=== PATIENT | female | born 1985 | race African-American/Black ===

== ENCOUNTER 2016-07-25 15:39 | Inpatient (IN) | payer OTHER ==
[2016-07-25 15:55] VITALS: BMI 34.7
--- NOTE | 2016-07-25 15:58 | PDOC ---
History of Present Illness <Elba Turk - Last Filed: 07/25/16 15:58> - General History Source: Patient Exam Limitations: No Limitations - History of Present Illness Initial Comments: 07/25/16 16:36 The patient is a 31 year old female with a significant past medical history of IDDM, Charcot foot - osteomyelitis on the left foot, CKD (on dialysis M W F), HTN, and HCL, who presents to the ER with fever, vomiting, chills, and sweats today. Patient states she woke up today in her usual state of health. Patient states she saw her wound care doctor today for the left foot. She states she was unable to complete her dialysis today secondary to vomiting and fever. Patient says she felt slight chest pain to the right chest last night. On interview, patient is complaining of left foot pain. Denies cough, shortness of breath Denies headache, lightheadedness, dizziness Denies dysuria, hematuria Denies abdominal pain, diarrhea <Claritza Winkler - Last Filed: 07/25/16 16:40> <Kathy Mosley - Last Filed: 07/25/16 23:55> - General Chief Complaint: SIRS, Suspected/Possible Stated Complaint: FEVER Time Seen by Provider: 07/25/16 15:58 Past History - Past Medical History Anemia: Yes Asthma: No Cancer: No Cardiac Disorders: No CVA: No COPD: No CHF: No Dementia: No Diabetes: Yes GI Disorders: No Disorders: No HTN: Yes Hypercholesterolemia: Yes Liver Disease: No Seizures: No Thyroid Disease: No - Surgical History Abdominal Surgery: No Appendectomy: No Cardiac Surgery: No Cholecystectomy: No Lung Surgery: No Neurologic Surgery: No Orthopedic Surgery: Yes (left foot fracture - hardware) - Immunization History Immunization Up to Date: Yes - Psycho/Social/Smoking Cessation Hx Anxiety: No Suicidal Ideation: No Smoking History: Current every day smoker Have you smoked in the past 12 months: Yes Number of Cigarettes Smoked Daily: 10 If you are a former smoker, when did you quit?: two months ago Information on smoking cessation initiated: No 'Breaking Loose' booklet given: 08/24/15 Hx Alcohol Use: No Drug/Substance Use Hx: No Substance Use Type: None Hx Substance Use Treatment: No <Elba Turk - Last Filed: 07/25/16 15:58> <Claritza Winkler - Last Filed: 07/25/16 16:40> <Kathy Mosley - Last Filed: 07/25/16 23:55> - Past Medical History Allergies/Adverse Reactions: Allergies Allergy/AdvReac Type Severity Reaction Status Date / Time Pima And Derivatives Allergy Verified 07/25/16 15:55 sulfamethoxazole Allergy Verified 07/25/16 15:55 [From Bactrim] trimethoprim [From Bactrim] Allergy Verified 07/25/16 15:55 Home Medications: Ambulatory Orders Atorvastatin Ca [Lipitor] 20 mg PO HS tablet 12/14/14 Amlodipine Besylate 10 mg PO DAILY 04/05/15 Ferrous Sulfate [Feosol] 325 mg PO DAILY 04/05/15 Magnesium Oxide 400 mg PO DAILY 04/05/15 Omeprazole [Prilosec] 20 mg PO DAILY 04/05/15 Polyethylene Glycol 3350 [Gavilax] 17 gm PO PRN 04/05/15 Tamsulosin HCl 0.4 mg PO HS 04/05/15 Acetaminophen [Tylenol .Regular Strength -] 650 mg PO Q6H PRN #0 tablet Atenolol [Tenormin -] 100 mg PO DAILY #0 tablet 12/13/15 Insulin (Levemir) [Levemir Vial] 15 unit SQ HS #1 vial 12/13/15 Insulin Sliding Scale [Novolog Vial Sliding Scale -] See Protocol SQ AC #1 pen 12/13/15 Calcitriol [Calcitriol -] 0.25 mcg PO BID #60 capsule 04/15/16 Calcium 500Mg/Vit-D 200 Units [Os-Kaz 500+D -] 2 tab PO DAILY #60 tab 04/15/16 Calcium Acetate [Phoslo -] 1,334 mg PO TIDCM #90 capsule 04/15/16 Collagenase Clostridium Hist. [Santyl -] 1 applic TP DAILY #1 tube 04/15/16 Insulin (Levemir) [Levemir Vial] 5 units SQ HS ml 04/15/16 Review of Systems - Review of Systems Able to Perform ROS?: Yes Comments:: 07/25/16 16:36 GENERAL/CONSTITUTIONAL: (+) fever, chills, sweats. No weakness. HEAD, EYES, EARS, NOSE AND THROAT: No change in vision. No ear pain or discharge. No sore throat. CARDIOVASCULAR: No chest pain or shortness of breath. RESPIRATORY: No cough, wheezing, or hemoptysis. GASTROINTESTINAL: (+) nausea, vomiting. No diarrhea or constipation. GENITOURINARY: No dysuria, frequency, or change in urination. MUSCULOSKELETAL: (+) left foot pain. No joint or muscle swelling or pain. No neck or back pain. SKIN: No rash NEUROLOGIC: No headache, vertigo, loss of consciousness, or change in strength/ sensation. ENDOCRINE: No increased thirst. No abnormal weight change. HEMATOLOGIC/LYMPHATIC: No anemia, easy bleeding, or history of blood clots. ALLERGIC/IMMUNOLOGIC: No hives or skin allergy. <Claritza Winkler - Last Filed: 07/25/16 16:40> *Physical Exam - Vital Signs Last Vital Signs Temp Pulse Resp BP Pulse Ox 102.1 F H 117 H 24 180/94 95 07/25/16 15:40 07/25/16 15:40 07/25/16 15:40 07/25/16 15:40 07/25/16 15:40 <Elba Turk - Last Filed: 07/25/16 15:58> - Vital Signs Last Vital Signs Temp Pulse Resp BP Pulse Ox 102.1 F H 117 H 24 180/94 95 07/25/16 15:40 07/25/16 15:40 07/25/16 15:40 07/25/16 15:40 07/25/16 15:40 - Physical Exam Comments: 07/25/16 16:37 GENERAL: Rigors. Awake, alert, and fully oriented, in no acute distress HEAD: No signs of trauma ENT: Auricles normal inspection, hearing grossly normal, nares patent, oropharynx clear without exudates. Moist mucosa NECK: Normal ROM, supple, no lymphadenopathy, JVD, or masses LUNGS: Breath sounds equal, clear to auscultation bilaterally. No wheezes, and no crackles HEART: Tachy. Regular rhythm, normal S1 and S2, no murmurs, rubs or gallops ABDOMEN: Soft, nontender, normoactive bowel sounds. No guarding, no rebound. No masses EXTREMITIES: Normal range of motion, no edema. No clubbing or cyanosis. No cords, erythema, or tenderness NEUROLOGICAL: Cranial nerves II through XII grossly intact. Normal speech, normal gait SKIN: Scar in the back. Right chest shiley. Warm, Dry, normal turgor. <PetersonJuana - Last Filed: 07/25/16 16:40> - Vital Signs Last Vital Signs Temp Pulse Resp BP Pulse Ox 102.1 F H 117 H 24 180/94 95 07/25/16 15:40 07/25/16 15:40 07/25/16 15:40 07/25/16 15:40 07/25/16 15:40 <MosleyKathy - Last Filed: 07/25/16 23:55> ED Treatment Course - LABORATORY CBC & Chemistry Diagram: 07/25/16 16:38 07/25/16 21:15 - ADDITIONAL ORDERS Additional order review: Laboratory Results 07/25/16 07/25/16 07/25/16 21:15 16:38 16:38 Sodium 130 L Cancelled Potassium 3.4 L Cancelled Chloride 94 L Cancelled Carbon Dioxide 24 Cancelled Anion Gap 12 Cancelled BUN 18 Cancelled Creatinine 5.0 H Cancelled Creat Clearance w eGFR 10.16 Cancelled Random Glucose 306 H* D Cancelled Lactic Acid 1.2 Calcium 8.0 L Cancelled Total Bilirubin 0.3 D Cancelled AST 15 Cancelled ALT 12 Cancelled Alkaline Phosphatase 109 Cancelled Creatine Kinase 229 H D Troponin I 0.06 H Total Protein 6.0 L Cancelled Albumin 1.8 L D Cancelled Lipase 70 L 07/25/16 16:38 RBC 3.12 L MCV 92.0 MCHC 32.7 RDW 16.0 H MPV 8.7 Neutrophils % 88.6 H D Lymphocytes % 5.0 L D Monocytes % 4.3 Eosinophils % 1.5 Basophils % 0.6 - Medications Given in the ED: ED Medications Discontinued Medications Generic Name Dose Route Start Last Admin Trade Name Freq PRN Reason Stop Dose Admin Acetaminophen 1,000 mg 07/25/16 16:24 07/25/16 16:25 Tylenol - PO 07/25/16 16:25 Not Given ONCE ONE Acetaminophen 1,000 mg 07/25/16 18:31 07/25/16 17:20 Ofirmev Injection - IVPB 07/25/16 18:32 1,000 mg ONCE ONE Administration Vancomycin HCl 1,250 mg/ 250 mls @ 250 mls/hr 07/25/16 16:24 07/25/16 18:25 Dextrose IVPB 07/25/16 17:23 250 mls/hr ONCE ONE Administration Protocol Morphine Sulfate 4 mg 07/25/16 19:27 07/25/16 18:50 Morphine Injection - IVPUSH 07/25/16 19:28 4 mg ONCE ONE Administration Ondansetron HCl 4 mg 07/25/16 17:35 07/25/16 17:20 Zofran Injection IVPUSH 07/25/16 17:36 4 mg ONCE ONE Administration <Kathy Mosley - Last Filed: 07/25/16 23:55> Medical Decision Making - Medical Decision Making 07/25/16 23:53 Pt comes with fever, infection of diabetic foot/ankle, which we are unable to see, as her PMD just debrided the wound, and placed her in an Ayana boot/cast today. We did not remove the cast. Pt is ESRD on HD M, W, F she received an abridged dialysis session, cut short because of her fever and illness. Pt will be admitted to the hospitalsit for treatment of the infection and further evaluation. <Kathy Mosley - Last Filed: 07/25/16 23:55> *DC/Admit/Observation/Transfer <lEba Turk - Last Filed: 07/25/16 15:58> - Attestations Scribe Attestion: 07/25/16 16:39 Documentation prepared by Claritza Winkler, acting as medical review coordinator for Elba Turk MD. <Claritza Winkler - Last Filed: 07/25/16 16:40> - Discharge Dispostion Admit: Yes <Kathy Mosley - Last Filed: 07/25/16 23:55> Diagnosis at time of Disposition: ESRD (end stage renal disease), HTN (hypertension), Diabetic foot infection, Insulin dependent diabetes mellitus - Referrals Referrals: Ruby Cruz [Primary Care Provider] -
[2016-07-25] MEDS ORDERED: PIPERACILLIN/TAZOB 2.25 GM 2.25 GM in DEXTROSE 5%-WATER - 50 ML IVPB ONE (16:24)
[2016-07-25] MEDS ORDERED: VANCOMYCIN 1,250 MG in DEXTROSE 5%-WATER - 250 ML IVPB ONE (16:24)
[2016-07-25] MEDS ORDERED: ACETAMINOPHEN 500 MG TABLET (FP) PO ONE (16:24)
[2016-07-25 17:07] LABS: BASOPHIL 0.6 % (0-2.0); EOSINOPHIL 1.5 % (0-4.5); MCH 30.1 pg (25.7-33.7); MCHC 32.7 g/dl (32.0-36.0); MEAN PLT VOLUME 8.7 fl (7.5-11.1); NEUTROPHILS 88.6 % (42.8-82.8); PLATELET COUNT 308 K/MM3 (134-434); WHITE BLOOD COUNT 13.6 K/mm3 (4.0-10.0)
[2016-07-25] MEDS ORDERED: VANCOMYCIN 1 GRAM (PRE-DOCKED) 250 ML IVPB ONE (17:16)
[2016-07-25] MEDS ORDERED: ONDANSETRON 4 MG/2 ML VIAL ONE (17:16)
[2016-07-25] MEDS ORDERED: ACETAMINOPHEN INJECTION 100 ML IVPB ONE (17:16)
[2016-07-25] MEDS ORDERED: ONDANSETRON 4 MG/2 ML VIAL IVPUSH ONE (17:35)
[2016-07-25] MEDS ORDERED: ACETAMINOPHEN 1000 MG/100 ML VIAL (NON FORMULARY) IVPB ONE (18:31)
[2016-07-25] MEDS ORDERED: morphine CARPU-JECT 4 MG/1 ML DISP.SYRIN ONE (18:48)
[2016-07-25] MEDS ORDERED: morphine CARPU-JECT 4 MG/1 ML DISP.SYRIN IVPUSH ONE (19:27)
[2016-07-25 22:03] LABS: ALBUMIN 1.8 g/dl (3.4-5.0); ANION GAP 12 (8-16); BILIRUBIN,TOTAL 0.3 mg/dL (0.2-1.0); CO2 24 mmol/L (21-32); SGOT/AST 15 U/L (15-37); SGPT/ALT 12 U/L (12-78)
[2016-07-25 22:05] LABS: ALK PHOS 109 U/L (45-117); TROPONIN I 0.06 ng/ml (0.00-0.05)
[2016-07-25 22:10] LABS: GLUCOSE,RANDOM 306 mg/dL (74-106)
[2016-07-25] MEDS ORDERED: IBUPROFEN 600 MG TABLET (FP) PO ONE ×2 (22:23→22:24)
[2016-07-25] MEDS ORDERED: PIPERACILLIN/TAZOB 3.375 GM/50 ML PRE-DOCKED IVPB ONE (23:45)
--- NOTE | 2016-07-25 23:45 | HP ---
CHIEF COMPLAINT: chills, nausea, vomiting PCP: Dr. Cruz; Nephro: Dr. Moeller HISTORY OF PRESENT ILLNESS: 31 y/o F w/PMH of IDDM, charcot foot, osteomyelitis on L foot, ESRD (dialysis MWF), HTN, HLD, GERD presents to ER w/ c/o of chills, nausea, vomiting and sent from [facility] dialysis after an incomplete dialysis session due to vomiting and fever. This morning pt was in her usual state of health and went to see wound care doctor and after leaving pt felt "deep chills". She then went to dialysis at approximately 1-130pm where she threw up twice (consisting of food and no blood), and had a fever but does not remember temp. She was sent from dialysis to [facility]. She states she has had MRSA bacteremia multiple times in the past. She denies CP, SOB, cough, sputum, PATINO, light-headedness, dizziness, abd pain out of the ordinary, diarrhea, blood in stool, dysuria, frequency, blood in urine, drainage from site of shiley catheter, runny nose, throat pain, throat swelling , visual changes, sick contacts. She states her L foot cast was replaced last Thursday and it was noted that she had good healing in the area. ER course was notable for: (1) CXR, L foot XR, Vanco, Zosyn, ofirmev (2) (3) PAST MEDICAL HISTORY: IDDM, charcot foot, osteomyelitis on L foot, ESRD ( dialysis MWF), HTN, HLD, GERD PAST SURGICAL HISTORY: R chest wall shiley catheter Social History: Smokin/2 ppd Alcohol: denies Drugs: marijuana Allergies Edmunds And Derivatives Allergy (Verified 07/25/16 15:55) - SCRATCHY THROAT sulfamethoxazole [From Bactrim] Allergy (Verified 07/25/16 15:55) - HIVES trimethoprim [From Bactrim] Allergy (Verified 07/25/16 15:55) - HIVES HOME MEDICATIONS: Home Medications Medication Instructions Recorded Atorvastatin Ca [Lipitor] 20 mg PO HS tablet 12/14/14 Amlodipine Besylate 10 mg PO DAILY 04/05/15 Ferrous Sulfate [Feosol] 325 mg PO DAILY 04/05/15 Magnesium Oxide 400 mg PO DAILY 04/05/15 Omeprazole [Prilosec] 20 mg PO DAILY 04/05/15 Polyethylene Glycol 3350 [Gavilax] 17 gm PO PRN 04/05/15 Tamsulosin HCl 0.4 mg PO HS 04/05/15 Acetaminophen [Tylenol .Regular 650 mg PO Q6H PRN #0 tablet 12/13/15 Strength -] Atenolol [Tenormin -] 100 mg PO DAILY #0 tablet 12/13/15 Insulin (Levemir) [Levemir Vial] 15 unit SQ HS #1 vial 12/13/15 Insulin Sliding Scale [Novolog See Protocol SQ AC #1 pen 12/13/15 Vial Sliding Scale -] Calcitriol [Calcitriol -] 0.25 mcg PO BID #60 capsule 04/15/16 Calcium 500Mg/Vit-D 200 Units 2 tab PO DAILY #60 tab 04/15/16 [Os-Kaz 500+D -] Calcium Acetate [Phoslo -] 1,334 mg PO TIDCM #90 capsule 04/15/16 Collagenase Clostridium Hist. 1 applic TP DAILY #1 tube 04/15/16 [Santyl -] Insulin (Levemir) [Levemir Vial] 5 units SQ HS ml 04/15/16 REVIEW OF SYSTEMS CONSTITUTIONAL: +fever, chills, diaphoresis Absent: malaise, loss of appetite, weight change HEENT: Absent: rhinorrhea, nasal congestion, throat pain, throat swelling, visual changes CARDIOVASCULAR: Absent: chest pain, syncope, palpitations, lightheadedness RESPIRATORY: Absent: cough, shortness of breath GASTROINTESTINAL: +nausea, vomiting Absent: abdominal pain, diarrhea, hematochezia GENITOURINARY: Absent: dysuria, frequency, hematuria NEUROLOGIC: Absent: headache, mental status changes, bladder or bowel incontinence PSYCHIATRIC: Absent: anxiety, depression PHYSICAL EXAMINATION Vital Signs - 24 hr 07/25/16 07/25/16 07/25/16 15:40 15:50 18:30 Temperature 102.1 F H 101.6 F H Pulse Rate 117 H Pulse Rate [ 103 H Right] Respiratory 24 20 Rate Blood Pressure 180/94 Blood Pressure 169/72 [Right Arm] O2 Sat by Pulse 95 95 95 Oximetry (%) 07/25/16 07/25/16 21:00 23:21 Temperature 101.5 F H 101.0 F H Pulse Rate Pulse Rate [ 96 H 96 H Right] Respiratory 18 18 Rate Blood Pressure Blood Pressure 189/69 174/74 [Right Arm] O2 Sat by Pulse 100 96 Oximetry (%) GENERAL: Awake, alert, and fully oriented, in no acute distress. HEAD: Normal with no signs of trauma. EYES: extraocular movements intact, sclera anicteric, conjunctiva clear. EARS, NOSE, THROAT: Ears normal, nares patent. Moist mucous membranes. NECK: Normal range of motion, supple LUNGS: b/l crackles (few) HEART: Tachycardic, normal S1 and S2 without murmur, rub or gallop. R chest wall shiley in place - c/d/i ABDOMEN: Tender diffusely but pt states this is normal for her. Soft, not distended, normoactive bowel sounds, no guarding, no rebound, no masses. No hepatomegaly or splenomegaly. LOWER EXTREMITIES: L foot in hard cast. warm, well-perfused. No calf tenderness. NEUROLOGICAL: Normal speech. Gait not observed. PSYCHIATRIC: Cooperative. Good eye contact. Appropriate mood and affect. SKIN: Warm, clammy Laboratory Results - last 24 hr 07/25/16 07/25/16 07/25/16 16:38 16:38 16:38 WBC 13.6 H D RBC 3.12 L Hgb 9.4 L Hct 28.7 L MCV 92.0 MCHC 32.7 RDW 16.0 H Plt Count 308 D MPV 8.7 Neutrophils % 88.6 H D Lymphocytes % 5.0 L D Monocytes % 4.3 Eosinophils % 1.5 Basophils % 0.6 Sodium Cancelled Potassium Cancelled Chloride Cancelled Carbon Dioxide Cancelled Anion Gap Cancelled BUN Cancelled Creatinine Cancelled Creat Clearance w eGFR Cancelled Random Glucose Cancelled Lactic Acid 1.2 Calcium Cancelled Total Bilirubin Cancelled AST Cancelled ALT Cancelled Alkaline Phosphatase Cancelled Creatine Kinase CK-MB (CK-2) Troponin I Total Protein Cancelled Albumin Cancelled Lipase 07/25/16 21:15 WBC RBC Hgb Hct MCV MCHC RDW Plt Count MPV Neutrophils % Lymphocytes % Monocytes % Eosinophils % Basophils % Sodium 130 L Potassium 3.4 L Chloride 94 L Carbon Dioxide 24 Anion Gap 12 BUN 18 Creatinine 5.0 H Creat Clearance w eGFR 10.16 Random Glucose 306 H* D Lactic Acid Calcium 8.0 L Total Bilirubin 0.3 D AST 15 ALT 12 Alkaline Phosphatase 109 Creatine Kinase 229 H D CK-MB (CK-2) < 1.000 Troponin I 0.06 H Total Protein 6.0 L Albumin 1.8 L D Lipase 70 L Imaging: CXR: Cardiomegaly, no acute pathology Foot XR: awaiting official read Active Medications Acetaminophen (Tylenol -) 650 mg PO Q6H PRN PRN Reason: FEVER Amlodipine Besylate (Norvasc -) 10 mg PO DAILY RUBINA Atenolol (Tenormin -) 100 mg PO DAILY RUBINA Atorvastatin Calcium (Lipitor -) 20 mg PO HS [facility] Heparin Sodium (Porcine) (Heparin -) 5,000 unit SQ BID RUBINA Sodium Chloride (Normal Saline -) 1,000 mls @ 100 mls/hr IV ASDIR RUBINA Pantoprazole Sodium 40 mg/ (Sodium Chloride) 100 mls @ 200 mls/hr IVPB DAILY RUBINA Insulin Aspart (Novolog Vial Sliding Scale -) 1 vial SQ ACHS RUBINA PRN Reason: Protocol Non-Formulary Medication (Ferrous Sulfate [Feosol]) 325 mg PO DAILY RUBINA Piperacillin Sod/Tazobactam Sod (Zosyn 3.375gm Ivpb (Pre-Docked)) 3.375 gm IVPB BID RUBINA PRN Reason: Protocol Tamsulosin HCl (Flomax -) 0.4 mg PO HS RUBINA ASSESSMENT/PLAN: 31 y/o F w/PMH of IDDM, charcot foot, osteomyelitis on L foot, ESRD (dialysis MWF), HTN, HLD, GERD presents to ER w/ c/o of chills, nausea, vomiting and sent from [facility] dialysis after an incomplete dialysis session due to vomiting and fever. Admitted for sepsis. -Sepsis secondary to Shiley Cath vs UTI vs Osteomyelitis -SIRS 4/4+ -NS @ 100 ml/hr; c/w Vanco and Zosyn; pt w/hx of MRSA; ID consulted -Tylenol for fevers -f/u UA, UCx, BCx, foot XR -Elevated Trops -likely secondary to demand ischemia and decreased clearance due to ESRD -trend -ESRD -had incomplete session of dialysis today -Nephro consulted -monitor Cr -Avoid nephrotoxins -HTN -c/w amlodipine 10 mg po qd, atenolol 50 mg po qd (max daily dose is 50 mg with Cr Cl of 10 or less) -IDDM -BGMs, ISS ACHS -HLD -c/w atorvastatin 20 mg po qhs -GERD -protonix 40 mg iv qd -Anemia of chronic disease -renal cause in nature -c/w ferrous sulfate 325 mg po qd -DVT ppx -Heparin 5000 units bid -FEN -NS @ 100 ml/hr -monitor lytes, dialysis pt -Renal/Diabetic diet -Dispo -Admit to m/s Visit type - Emergency Visit Emergency Visit: Yes Care time: The patient presented to the Emergency Department on the above date and was hospitalized for further evaluation of their emergent condition. - New Patient This patient is new to me today: Yes Date on this admission: 07/26/16 - Critical Care Critical Care patient: No
[2016-07-25] MEDS ORDERED: PIPERACILLIN/TAZOB 3.375 GM/50 ML PRE-DOCKED IVPB SCH (23:59)
[2016-07-26] MEDS: SODIUM CHLORIDE 1,000 ML IV SCH (00:43)
[2016-07-26] MEDS ORDERED: PREGABALIN 25 MG CAPSULE PO PRN (01:00)
--- NOTE | 2016-07-26 04:32 | PN ---
<Kalin Ariza - Last Filed: 07/26/16 04:49> Teaching Attending Note ATTENDING PHYSICIAN STATEMENT I saw and evaluated the patient. I reviewed the resident's note and discussed the case with the resident. I agree with the resident's findings and plan as documented. SUBJECTIVE: The patient is a 31 year old female who presented to the ER with fever, vomiting , chills, and sweats today. Patient reported she woke up today in her usual state of health. Patient stated she saw her wound care doctor this morning for the left foot and began to have chills shortly after her appointment. At 1:30 she was unable to complete her dialysis today secondary to vomiting and subjective fever. Patient endorsed slight sharp chest pain to the right chest last night that . On interview, patient is complained of left foot pain. Denies cough, shortness of breath Denies headache, lightheadedness, dizziness Denies dysuria, hematuria Denies abdominal pain, diarrhea PAST MEDICAL HISTORY: DDM, Charcot foot, CKD (on dialysis M W F), HTN, HCL, retinopathy , COPD, bacteremia PAST SURGICAL HISTORY: Osteomyelitis on the left foot FAMILY HISTORY: No pertinent history reported SOCIAL HISTORY: Current 0.5 ppd smoker, denied alcohol and recreational drug use. ALLERGIES: Juab, sulfamethoxazole, trimethoprim MEDICATIONS: As per nursing note. OBJECTIVE: Last Vital Signs 3 Temp Pulse Resp BP Pulse Ox 101.0 F H 96 H 18 174/74 96 07/25/16 23:21 07/25/16 23:21 07/25/16 23:21 07/25/16 23:21 07/25/16 23:21 Physical Examination: GENERAL: Awake, alert, and fully oriented, in no acute distress HEENT: Atraumatic. PERRLA, EOMI. Moist mucosa. No JVD LUNGS: (+) No distress, speaks full sentences, clear to auscultation bilaterally. Minor crackles bilaterally. HEART: (+) Tachycardic, regular rhythm, normal S1 and S2, no murmurs, rubs or gallops, peripheral pulses normal and equal bilaterally. ABDOMEN: Soft, nontender, normoactive bowel sounds. No guarding, no rebound. No masses EXTREMITIES: (+) Normal inspection, Normal range of motion, no edema. No clubbing or cyanosis. Left foot is with cast. NEUROLOGICAL: Cranial nerves II through XII grossly intact. Normal speech, normal gait, no focal sensorimotor deficits SKIN: Warm, Dry, normal turgor, no rashes or lesions noted. Labs: CBCD 3 WBC 13.6 K/mm3 (4.0-10.0) H D 07/25/16 16:38 RBC 3.12 M/mm3 (3.60-5.2) L 07/25/16 16:38 Hgb 9.4 GM/dL (10.7-15.3) L 07/25/16 16:38 Hct 28.7 % (32.4-45.2) L 07/25/16 16:38 MCV 92.0 fl (80-96) 07/25/16 16:38 MCHC 32.7 g/dl (32.0-36.0) 07/25/16 16:38 RDW 16.0 % (11.6-15.6) H 07/25/16 16:38 Plt Count 308 K/MM3 (134-434) D 07/25/16 16:38 MPV 8.7 fl (7.5-11.1) 07/25/16 16:38 CMP 3 Sodium 130 mmol/L (136-145) L 07/25/16 21:15 Potassium 3.4 mmol/L (3.5-5.1) L 07/25/16 21:15 Chloride 94 mmol/L (98-107) L 07/25/16 21:15 Carbon Dioxide 24 mmol/L (21-32) 07/25/16 21:15 Anion Gap 12 (8-16) 07/25/16 21:15 BUN 18 mg/dL (7-18) 07/25/16 21:15 Creatinine 5.0 mg/dL (0.55-1.02) H 07/25/16 21:15 Creat Clearance w eGFR 10.16 (>60) 07/25/16 21:15 Calcium 8.0 mg/dL (8.5-10.1) L 07/25/16 21:15 Total Bilirubin 0.3 mg/dL (0.2-1.0) D 07/25/16 21:15 AST 15 U/L (15-37) 07/25/16 21:15 ALT 12 U/L (12-78) 07/25/16 21:15 Alkaline Phosphatase 109 U/L (45-117) 07/25/16 21:15 Total Protein 6.0 g/dl (6.4-8.2) L 07/25/16 21:15 Albumin 1.8 g/dl (3.4-5.0) L D 07/25/16 21:15 Imaging: EXAM: RAD/CHEST X-RAY PORTABLE* HISTORY PROVIDED: Fever. A single frontal portable projection of the chest at 9: 55 PM is submitted. The heart size is markedly enlarged. A right-sided permacath is present. No acute infiltrates or pleural effusions are identified. IMPRESSION: Cardiomegaly, no acute pathology Reported By: Armando Blackman MD 07/25/16 [id number] EXAM: FOOT X-RAY. IMPRESSION: Official report is still pending. ASSESSMENT AND PLAN : Sepsis secondary to sepsis etiology undetermined ruling out Shiley catheter versus Osteomyelitis versus Urinary tract infection - Trend LA - NS 100 cc/hr - Vancomycin and Zosyn - ID consult - Tylenol prn fever - Follow up blood cultures - Follow up urine cultures - Follow up foot x-ray ESRD - s/p incomplete dialysis session today. In ED found to have elevated troponin levels - Trend troponins. - Monitor creatinine - Avoid nephrotoxins - Consult nephrology Insulin Dependent Diabetes Mellitus - Blood glucose monitoring ACHS - Insulin sliding scale ACHS HTN - Continue Amlodipine 10 mg PO QD - Continue with Atenolol 100 mg PO QD HLD - Continue with Atorvastatin 20 mg PO QHS GERD - Protonix 40 mg IV QD Chronic Anemia - secondary to CKD - Continue with Ferrous Sulfate 325 mg PO QD DVT PPX - Heparin 5000 units BID Admit to med surg. Documentation prepared by Kalin Ariza, acting as biomedical engineering professor for Dr. Drea Ba MD. <Drea aB - Last Filed: 07/26/16 07:13> Teaching Attending Note Name of Resident: Jeff Salazar Correct Addendum- Atenolol 50mg not 100mg
[2016-07-26 06:47] LABS: BASOPHIL 0.7 % (0-2.0); EOSINOPHIL 1.7 % (0-4.5); MCH 30.8 pg (25.7-33.7); MCHC 32.8 g/dl (32.0-36.0); MEAN CELL VOLUME 93.8 fl (80-96); MEAN PLT VOLUME 8.5 fl (7.5-11.1); PLATELET COUNT 250 K/MM3 (134-434); RDW 15.5 % (11.6-15.6); WHITE BLOOD COUNT 9.7 K/mm3 (4.0-10.0)
[2016-07-26 07:10] LABS: INR 1.29 (0.82-1.09); PROTHROMBIN TIME (PATIENT) 14.3 SEC (9.98-11.88)
[2016-07-26 07:13] LABS: ALBUMIN 1.6 g/dl (3.4-5.0); ANION GAP 10 (8-16); BILIRUBIN,TOTAL 0.2 mg/dL (0.2-1.0); CALCIUM 7.6 mg/dL (8.5-10.1); CO2 27 mmol/L (21-32); CREATININE 5.7 mg/dL (0.55-1.02); GLUCOSE,RANDOM 293 mg/dL (74-106); SGOT/AST 13 U/L (15-37); SGPT/ALT 11 U/L (12-78); TOT PROT 5.3 g/dl (6.4-8.2)
[2016-07-26 07:14] LABS: ALK PHOS 102 U/L (45-117)
[2016-07-26] MEDS ORDERED: PIPERACILLIN/TAZOB 3.375 GM/50 ML PRE-DOCKED IVPB ONE (08:00)
[2016-07-26] MEDS: INSULIN SLIDING SCALE (NOVOLOG) 1 VIAL SQ SCH ×4 (08:09→22:55)
[2016-07-26 08:32] LABS: MAGNESIUM 1.9 mg/dL (1.8-2.4)
[2016-07-26 08:40] LABS: PHOSPHOROUS 4.1 mg/dL (2.5-4.9); TROPONIN I 0.03 ng/ml (0.00-0.05)
[2016-07-26] MEDS ORDERED: ATENOLOL 50 MG TABLET (FP) PO SCH (10:00)
[2016-07-26] MEDS ORDERED: PANTOPRAZOLE SODIUM 40 MG in SODIUM CHLORIDE 100 ML IVPB SCH (10:00)
[2016-07-26] MEDS ORDERED: FERROUS SO4 325 MG TABLET (FP) ONE (10:22)
[2016-07-26] MEDS ORDERED: amLODIPine BESYLATE 5 MG TABLET (FP) ONE (10:22)
[2016-07-26] MEDS ORDERED: ATENOLOL 25 MG TABLET (FP) ONE (10:22)
[2016-07-26] MEDS ORDERED: HEPARIN NA (PORCINE) 5,000 UNITS/ML 1ML VIAL ONE ×2 (10:22→21:54)
[2016-07-26] MEDS ORDERED: PANTOPRAZOLE SODIUM 40 MG VIAL ONE (10:23)
[2016-07-26] MEDS: FERROUS SO4 325 MG TABLET (FP) PO SCH (10:57)
[2016-07-26] MEDS: amLODIPine BESYLATE 10 MG TABLET (FP) PO SCH (10:57)
[2016-07-26] MEDS: HEPARIN NA (PORCINE) 5,000 UNITS/ML 1ML VIAL SQ SCH ×2 (10:57→22:55)
[2016-07-26] MEDS: ATENOLOL 50 MG TABLET (FP) PO SCH (10:57)
[2016-07-26] MEDS: PANTOPRAZOLE SODIUM 40 MG/100 ML PRE-DOCKED IVPB SCH (10:57)
[2016-07-26 11:05] LABS: URINE APPEARANCE CLEAR; URINE BILIRUBIN NEGATIVE (NEGATIVE); URINE BLOOD NEGATIVE (NEGATIVE); URINE COLOR LTYELLOW; URINE GLUCOSE (UA) 3+ (NEGATIVE); URINE KETONE TRACE (NEGATIVE); URINE LEUK ESTERASE NEGATIVE (NEGATIVE); URINE NITRITE NEGATIVE (NEGATIVE); URINE UROBILINOGEN NEGATIVE E.U./dl (0.2-1.0)
[2016-07-26 11:13] LABS: URINE PROTEIN 3+ (NEGATIVE)
[2016-07-26 11:15] LABS: URINE BACTERIA RARE /hpf (NONE SEEN); URINE HYALINE CAST 7 /lpf; URINE MUCUS RARE; URINE RBC 1 /hpf (0-3); URINE WBC 5 /hpf (3-5)
--- NOTE | 2016-07-26 12:06 | CON.NEP ---
Consult Consult Specialty:: Nephrology Reason for Consultation:: esrd/sepsis - History of Present Illness Chief Complaint: foot pain History of Present Illness: 31 y/o F w/PMH of IDDM, charcot foot, osteomyelitis on L foot, ESRD (dialysis MWF), HTN, HLD, GERD presents to ER w/ c/o of chills, nausea, vomiting and sent from [facility] after an incomplete dialysis session due to vomiting and fever. I had her sent to hospital from [facility] dialysis center. She feels better today but is still complaining of pain in her foot and knee. 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: Peripheral Neuropathy Cardio/Vascular: Yes: HTN, Hyperlipdemia Pulmonary: Yes: COPD Renal/: Yes: Renal Inusuff ...LMP: 10/15/15 Infectious Disease: Yes: Other (bacteremia, removal hardware LLE 11/2014) Musculoskeletal: Yes: Other (+ Charcot Arthropathy Left foot) Endocrine: Yes: Diabetes Mellitus Additional Medical History: diabetic neuropathy - Alcohol/Substance Use Hx Alcohol Use: No History of Substance Use: reports: Marijuana - Smoking History Smoking history: Current every day smoker Have you smoked in the past 12 months: Yes Aproximately how many cigarettes per day: 10 If you are a former smoker, when did you quit?: two months ago - Social History Usual Living Arrangement: Other (has a roommate) ADL: Support Services 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 History of Recent Travel: No Home Medications - Allergies Allergies/Adverse Reactions: Allergies Allergy/AdvReac Type Severity Reaction Status Date / Time [place] And Derivatives Allergy Verified 07/25/16 15:55 sulfamethoxazole Allergy Verified 07/25/16 15:55 [From Bactrim] trimethoprim [From Bactrim] Allergy Verified 07/25/16 15:55 - Home Medications Home Medications: Ambulatory Orders Atorvastatin Ca [Lipitor] 20 mg PO HS tablet 12/14/14 Amlodipine Besylate 10 mg PO DAILY 04/05/15 Ferrous Sulfate [Feosol] 325 mg PO DAILY 04/05/15 Magnesium Oxide 400 mg PO DAILY 04/05/15 Omeprazole [Prilosec] 20 mg PO DAILY 04/05/15 Polyethylene Glycol 3350 [Gavilax] 17 gm PO PRN 04/05/15 Tamsulosin HCl 0.4 mg PO HS 04/05/15 Acetaminophen [Tylenol .Regular Strength -] 650 mg PO Q6H PRN #0 tablet Atenolol [Tenormin -] 100 mg PO DAILY #0 tablet 12/13/15 Insulin (Levemir) [Levemir Vial] 15 unit SQ HS #1 vial 12/13/15 Insulin Sliding Scale [Novolog Vial Sliding Scale -] See Protocol SQ AC #1 pen 12/13/15 Calcitriol [Calcitriol -] 0.25 mcg PO BID #60 capsule 04/15/16 Calcium 500Mg/Vit-D 200 Units [Os-Kaz 500+D -] 2 tab PO DAILY #60 tab 04/15/16 Calcium Acetate [Phoslo -] 1,334 mg PO TIDCM #90 capsule 04/15/16 Collagenase Clostridium Hist. [Santyl -] 1 applic TP DAILY #1 tube 04/15/16 Insulin (Levemir) [Levemir Vial] 5 units SQ HS ml 04/15/16 Family Disease History - Family Disease History Family Disease History: Diabetes: Mother, Sister, Son Review of Systems - Review of Systems Constitutional: reports: Chills, Fever Eyes: reports: Blurred Vision HENT: reports: No Symptoms Neck: reports: No Symptoms Cardiovascular: reports: Edema Respiratory: reports: No Symptoms Gastrointestinal: reports: No Symptoms Genitourinary: reports: No Symptoms Breasts: reports: No Symptoms Reported Musculoskeletal: reports: Extremity Pain Integumentary: reports: No Symptoms Neurological: reports: No Symptoms Endocrine: reports: No Symptoms Hematology/Lymphatic: reports: No Symptoms Psychiatric: reports: No Symptoms Nephrology Consult - Height Height: 5 ft 6 in - Weight Weight: 215 lb - BMI Body Mass Index (BMI): 34.7 - Lab Results CBC,BMP: CBC, BMP 07/26/16 06:00 07/26/16 06:25 Anion Gap: Anion Gap Anion Gap 10 (8-16) 07/26/16 06:25 - Imaging Chest X-ray: Report Reviewed (no acute pathology) - Physical Examination Vital Signs: Vital Signs Temperature 99.2 F 07/26/16 02:13 Pulse Rate 82 07/26/16 06:54 Respiratory Rate 20 07/26/16 06:54 Blood Pressure 174/86 07/26/16 06:54 O2 Sat by Pulse Oximetry (%) 96 07/26/16 06:54 Constitutional: Yes: Well Nourished, No Distress, Calm Eyes: Yes: Conjunctiva Clear HENT: Yes: Atraumatic, Normocephalic Neck: Yes: Supple, Trachea Midline Cardiovascular: Yes: Regular Rate and Rhythm Respiratory: Yes: Regular, CTA Bilaterally Gastrointestinal: Yes: Normal Bowel Sounds Renal/: Yes: WNL Access for Hemodialysis: Permacath Musculoskeletal: Yes: WNL Extremities: Yes: Other (+edema, has a leg cast soft) Edema: Yes Wound/Incision: Yes: Clean/Dry Neurological: Yes: Alert, Oriented Assessment/Plan IMPRESSION esrd htn anemia sepsis from foot infection. Doubt her PC is infected though its possible severe hypoalbuminemia PLAN no need to dialyze today needs a renal diet. antibiotics per ID dietitan to see regarding very low albumin will give epogen but no venofer during HD MV
[2016-07-26] MEDS ORDERED: morphine CARPU-JECT 2 MG/1 ML DISP.SYRIN ONE (16:03)
[2016-07-26] MEDS: morphine CARPU-JECT 2 MG/1 ML DISP.SYRIN IVPUSH PRN (16:08)
--- NOTE | 2016-07-26 16:53 | PN ---
Progress Note (short form) - Note Progress Note: Subjective: The patient was seen and examined at the bedside, she states her left foot cast was replaced yesterday by Dr. Crews ([phone]). Current Medications Generic Name Dose Route Start Last Admin Trade Name Freq PRN Reason Stop Dose Admin Acetaminophen 650 mg 07/25/16 23:23 Tylenol - PO Q6H PRN FEVER Amlodipine Besylate 10 mg 07/26/16 10:00 07/26/16 10:57 Norvasc - PO 10 mg DAILY RUBINA Administration Atenolol 50 mg 07/26/16 10:00 07/26/16 10:57 Tenormin - PO 50 mg DAILY RUBINA Administration Atorvastatin Calcium 20 mg 07/26/16 22:00 Lipitor - PO HS RUBINA Ferrous Sulfate 325 mg 07/26/16 10:00 07/26/16 10:57 Feosol - PO 325 mg DAILY RUBINA Administration Heparin Sodium (Porcine) 5,000 unit 07/26/16 10:00 07/26/16 10:57 Heparin - SQ 5,000 unit BID RUBINA Administration Sodium Chloride 1,000 mls @ 100 mls/hr 07/25/16 23:30 07/26/16 00:43 Normal Saline - IV 100 mls/hr ASDIR RUBINA Administration Insulin Aspart 1 vial 07/26/16 07:00 07/26/16 13:20 Novolog Vial Sliding Scale - SQ 6 units ACHS RUBINA Administration Protocol Morphine Sulfate 1 mg 07/26/16 15:38 Morphine Injection - IVPUSH Q4H PRN PAIN Pantoprazole Sodium 40 mg 07/26/16 10:00 07/26/16 10:57 Protonix 40mg Ivpb (Pre-Docked) IVPB 40 mg DAILY RUBINA Administration Tamsulosin HCl 0.4 mg 07/26/16 22:00 Flomax - PO HS RUBINA Objective: Vital Signs Period Temp Pulse Resp BP Sys/Guardado Pulse Ox Last 24 Hr 99.2 F-101.6 F 75-103 18-20 150-189/69-86 95-100 Physical Exam: General: NAD, A&Ox3 HEENT: B/l strabismus Lungs: CTA bilaterally. Right chest wall permacath Heart: RRR, S1S2 Abd: Soft, non-tender, non-distended. Normoactive bowel sounds Ext: Left foot cast to distal knee. Warm extremity CBCD WBC 9.7 K/mm3 (4.0-10.0) 07/26/16 06:00 RBC 2.65 M/mm3 (3.60-5.2) L 07/26/16 06:00 Hgb 8.2 GM/dL (10.7-15.3) L D 07/26/16 06:00 Hct 24.9 % (32.4-45.2) L 07/26/16 06:00 MCV 93.8 fl (80-96) 07/26/16 06:00 MCHC 32.8 g/dl (32.0-36.0) 07/26/16 06:00 RDW 15.5 % (11.6-15.6) 07/26/16 06:00 Plt Count 250 K/MM3 (134-434) 07/26/16 06:00 MPV 8.5 fl (7.5-11.1) 07/26/16 06:00 CMP Sodium 133 mmol/L (136-145) L 07/26/16 06:25 Potassium 3.5 mmol/L (3.5-5.1) 07/26/16 06:25 Chloride 96 mmol/L (98-107) L 07/26/16 06:25 Carbon Dioxide 27 mmol/L (21-32) 07/26/16 06:25 Anion Gap 10 (8-16) 07/26/16 06:25 BUN 21 mg/dL (7-18) H 07/26/16 06:25 Creatinine 5.7 mg/dL (0.55-1.02) H 07/26/16 06:25 Creat Clearance w eGFR 8.74 (>60) 07/26/16 06:25 Random Glucose 293 mg/dL (74-106) H 07/26/16 06:25 Calcium 7.6 mg/dL (8.5-10.1) L 07/26/16 06:25 Total Bilirubin 0.2 mg/dL (0.2-1.0) D 07/26/16 06:25 AST 13 U/L (15-37) L 07/26/16 06:25 ALT 11 U/L (12-78) L 07/26/16 06:25 Alkaline Phosphatase 102 U/L (45-117) 07/26/16 06:25 Total Protein 5.3 g/dl (6.4-8.2) L 07/26/16 06:25 Albumin 1.6 g/dl (3.4-5.0) L 07/26/16 06:25 CARDIAC ENZYMES Creatine Kinase 229 IU/L (26-192) H D 07/25/16 21:15 Troponin I 0.03 ng/ml (0.00-0.05) 07/26/16 06:25 Assessment: This is a 31 year old female with PMHx of IDDM, charcot foot, ESRD ( HD M,W,F), left foot osteomyelitis, b/l retinopathy HTN, hyperlipidemia, GERD, who presented to the ED with chills, nausea, vomiting and sent from [facility] dialysis for vomiting and fever. Plan: 1) ID: Sepsis 2/2 osteomyelitis vs. shiley catheter vs UTI - Lactic acid wnl - Blood cultures pending - UA, urine culture pending - Chest X-ray with cardiomegaly, no acute infiltrates or pleural effusions - Given Vancomycin and Zosyn, f/u ID consult for further abx recommendations - Attempt to call Dr. Crews ([phone])MD who placed cast on patient's foot yesterday - While left foot x-ray has marked deformity, cast has obscured the view. Patient reports open wound on left foot and left lr - F/u ortho consult for possible removal of cast to evaluate wound on foot as it can be source of sepsis - F/u ID consult 2) : ESRD on HD - Continue with scheduled HD - Appreciate nephrology consult 3) Cardiology: HTN - Continue Atenolol - Continue Norvasc Hyperlipidemia: - Continue Lipitor 4) GI: GERD - Continue Protonix 5) F/E/N: - Renal, diabetic diet - Monitor electrolytes 6) Prophylaxis: - Heparin 5,000u sq bid 7) Dispo: - Requires continued inpatient care CODE STATUS: FULL CODE Visit type - Emergency Visit Emergency Visit: Yes ED Registration Date: 07/25/16 Care time: The patient presented to the Emergency Department on the above date and was hospitalized for further evaluation of their emergent condition. - New Patient This patient is new to me today: Yes Date on this admission: 07/26/16 - Critical Care Critical Care patient: No
[2016-07-26] MEDS ORDERED: POLYETHYLENE GLYCOL 3350 119 GM BTL PO PRN (17:00)
[2016-07-26] MEDS: CALCIUM ACETATE 667 MG CAPSULE (FP) PO SCH (18:47)
[2016-07-26] MEDS ORDERED: TAMSULOSIN HCL 0.4 MG CAP.ER.24H (FP) ONE (21:54)
[2016-07-26] MEDS ORDERED: ATORVASTATIN CA 40 MG TABLET (FP) ONE (21:55)
[2016-07-26] MEDS ORDERED: INSULIN (NOVOLOG) ASPART 100 UNITS/ML 10ML VIAL ONE (22:23)
[2016-07-26] MEDS: ATORVASTATIN CA 20 MG TABLET (FP) PO SCH (22:55)
[2016-07-26] MEDS: TAMSULOSIN HCL 0.4 MG CAP.ER.24H (FP) PO SCH (22:55)
[2016-07-26] MEDS: CALCITRIOL 0.25 MCG CAPSULE (FP) PO SCH (22:56)
[2016-07-27] MEDS ORDERED: morphine CARPU-JECT 2 MG/1 ML DISP.SYRIN ONE (00:43)
[2016-07-27] MEDS: morphine CARPU-JECT 2 MG/1 ML DISP.SYRIN IVPUSH PRN ×4 (00:50→21:46)
[2016-07-27] MEDS: SODIUM CHLORIDE 1,000 ML IV SCH (01:23)
[2016-07-27] MEDS: INSULIN SLIDING SCALE (NOVOLOG) 1 VIAL SQ SCH ×4 (07:22→21:47)
[2016-07-27 08:24] LABS: BASOPHIL 1.1 % (0-2.0); EOSINOPHIL 6.2 % (0-4.5); MCHC 32.8 g/dl (32.0-36.0); MEAN CELL VOLUME 94.7 fl (80-96); MEAN PLT VOLUME 8.9 fl (7.5-11.1); NEUTROPHILS 58.9 % (42.8-82.8); PLATELET COUNT 209 K/MM3 (134-434); RDW 16.2 % (11.6-15.6); WHITE BLOOD COUNT 6.7 K/mm3 (4.0-10.0)
[2016-07-27] MEDS: CALCIUM ACETATE 667 MG CAPSULE (FP) PO SCH ×3 (08:29→17:37)
[2016-07-27 08:41] LABS: ALBUMIN 1.5 g/dl (3.4-5.0); ANION GAP 11 (8-16); CALCIUM 7.5 mg/dL (8.5-10.1); CO2 24 mmol/L (21-32); CREATININE 6.7 mg/dL (0.55-1.02); GLUCOSE,RANDOM 103 mg/dL (74-106); SGOT/AST 16 U/L (15-37); SGPT/ALT 12 U/L (12-78)
[2016-07-27 08:43] LABS: ALK PHOS 89 U/L (45-117); BILIRUBIN,TOTAL 0.2 mg/dL (0.2-1.0); TOT PROT 5.2 g/dl (6.4-8.2)
[2016-07-27] MEDS ORDERED: PIPERACILLIN/TAZOB 2.25 GM 50 ML IVPB ONE (09:15)
[2016-07-27] MEDS: HEPARIN NA (PORCINE) 5,000 UNITS/ML 1ML VIAL SQ SCH ×2 (09:36→21:47)
[2016-07-27] MEDS: CALCIUM 500MG/VIT-D 200 UNITS COMBO TABLET (FP) PO SCH (09:37)
[2016-07-27] MEDS: amLODIPine BESYLATE 10 MG TABLET (FP) PO SCH (09:37)
[2016-07-27] MEDS: CALCITRIOL 0.25 MCG CAPSULE (FP) PO SCH ×2 (09:37→21:47)
[2016-07-27] MEDS: ATENOLOL 50 MG TABLET (FP) PO SCH (09:37)
[2016-07-27] MEDS: FERROUS SO4 325 MG TABLET (FP) PO SCH (09:37)
[2016-07-27] MEDS ORDERED: PATIENT'S OWN MEDICATION (NON-FORMULARY) (Omeprazole Pediatric Solution 20 MG) PO SCH (10:00)
--- NOTE | 2016-07-27 10:49 | PN ---
Progress Note (short form) - Note Progress Note: RENAL Pt is awake and alert comfortable has no complaints Last Vital Signs Temp Pulse Resp BP Pulse Ox 97.9 F 76 18 147/99 97 07/27/16 08:56 07/27/16 08:56 07/27/16 08:56 07/27/16 08:56 07/26/16 21:00 lungs clear cvs s1s2 rr abd soft ext no edema neuro a+ox3 CBC, BMP 07/27/16 06:30 07/27/16 06:30 Current Medications Generic Name Dose Route Start Last Admin Trade Name Freq PRN Reason Stop Dose Admin Acetaminophen 650 mg 07/25/16 23:23 Tylenol - PO Q6H PRN FEVER Amlodipine Besylate 10 mg 07/26/16 10:00 07/27/16 09:37 Norvasc - PO 10 mg DAILY RUBINA Administration Atenolol 50 mg 07/26/16 10:00 07/27/16 09:37 Tenormin - PO 50 mg DAILY RUBINA Administration Atorvastatin Calcium 20 mg 07/26/16 22:00 07/26/16 22:55 Lipitor - PO 20 mg HS RUBINA Administration Calcitriol 0.25 mcg 07/26/16 22:00 07/27/16 09:37 Rocaltrol - PO 0.25 mcg BID RUBINA Administration Calcium Acetate 1,334 mg 07/26/16 17:30 07/27/16 08:29 Phoslo - PO 1,334 mg TIDCM RUBINA Administration Calcium Carbonate/Cholecalciferol 2 tab 07/27/16 10:00 07/27/16 09:37 Os-Kaz 500+D - PO 2 tab DAILY RUBINA Administration Collagenase 1 applic 07/27/16 10:00 Santyl - TP DAILY RUBINA Ferrous Sulfate 325 mg 07/26/16 10:00 07/27/16 09:37 Feosol - PO 325 mg DAILY RUBINA Administration Heparin Sodium (Porcine) 5,000 unit 07/26/16 10:00 07/27/16 09:36 Heparin - SQ 5,000 unit BID RUBINA Administration Sodium Chloride 1,000 mls @ 100 mls/hr 07/25/16 23:30 07/27/16 01:23 Normal Saline - IV 100 mls/hr ASDIR RUBINA Administration Insulin Aspart 1 vial 07/26/16 07:00 07/27/16 07:22 Novolog Vial Sliding Scale - SQ Not Given ACHS RUBINA Protocol Morphine Sulfate 1 mg 07/26/16 15:38 07/27/16 00:50 Morphine Injection - IVPUSH 1 mg Q4H PRN Administration PAIN Pantoprazole Sodium 40 mg 07/26/16 10:00 07/26/16 10:57 Protonix 40mg Ivpb (Pre-Docked) IVPB 40 mg DAILY RUBINA Administration Polyethylene Glycol 17 gm 07/26/16 17:00 Miralax (For Daily Use) - PO PRN PRN Tamsulosin HCl 0.4 mg 07/26/16 22:00 07/26/16 22:55 Flomax - PO 0.4 mg HS RUBINA Administration IMPRESSION sepsis- cultures are preliminarily negative esrd HTN anemia mild hyponatremia PLAN will dialyze again tomorrow continue antibiotics for now despite neg cultures given her presentation and obvious risk factors for infection no venofer given infection Podiatry consult MV
[2016-07-27] MEDS: PANTOPRAZOLE SODIUM 40 MG/100 ML PRE-DOCKED IVPB SCH (11:50)
[2016-07-27] MEDS: COLLAGENASE CLOSTRIDIUM HIST. 30 GRAMS TUBE TP SCH (11:50)
[2016-07-27] MEDS ORDERED: EPOETIN ALFA 10,000 UNIT/1 ML VIAL SQ ONE (12:00)
--- NOTE | 2016-07-27 12:00 | CONSULT ---
Consult Consult Specialty:: infectious diseases Reason for Consultation:: fever - History of Present Illness Chief Complaint: fever History of Present Illness: 31 y/o F w/PMH of IDDM, charcot foot, osteomyelitis on L foot, ESRD (dialysis MWF), HTN, HLD, GERD presents to ER w/ c/o of chills, nausea, vomiting and sent from [facility] dialysis after an incomplete dialysis session due to vomiting and fever. patient also starting feeling chills when she went to her wound care doctor.I know this patient from last admission she denies any other issues but is adamant that the foot is the cause she mentions that she has 2 open wounds on the foot but her foot is in hard cast so those cannot be evaluated ortho is going to come and see the patient and might remove the cast --we will ahve a look at the wounds that time patient has history of mrsa in the blood in the past and multiple mssa and mrsa infection from the wound her blood cx from this time is not showing any growth - History Source History Provided By: Patient Limitations to Obtaining History: No Limitations - 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 Cardio/Vascular: Yes: HTN, Hyperlipdemia Pulmonary: Yes: COPD Renal/: Yes: Renal Inusuff ...LMP: 10/15/15 Infectious Disease: Yes: Other (bacteremia, removal hardware LLE 11/2014) Musculoskeletal: Yes: Other (+ Charcot Arthropathy Left foot) Endocrine: Yes: Diabetes Mellitus Additional Medical History: diabetic neuropathy - Alcohol/Substance Use Hx Alcohol Use: No History of Substance Use: reports: Marijuana - Smoking History Smoking history: Current every day smoker Have you smoked in the past 12 months: Yes Aproximately how many cigarettes per day: 10 If you are a former smoker, when did you quit?: two months ago - Social History Usual Living Arrangement: Other (has a roommate) ADL: Support Services 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 of Recent Travel: No Home Medications - Allergies Allergies/Adverse Reactions: Allergies Allergy/AdvReac Type Severity Reaction Status Date / Time [place] And Derivatives Allergy Verified 07/25/16 15:55 sulfamethoxazole Allergy Verified 07/25/16 15:55 [From Bactrim] trimethoprim [From Bactrim] Allergy Verified 07/25/16 15:55 - Home Medications Home Medications: Ambulatory Orders Atorvastatin Ca [Lipitor] 20 mg PO HS tablet 12/14/14 Amlodipine Besylate 10 mg PO DAILY 04/05/15 Ferrous Sulfate [Feosol] 325 mg PO DAILY 04/05/15 Magnesium Oxide 400 mg PO DAILY 04/05/15 Omeprazole [Prilosec] 20 mg PO DAILY 04/05/15 Polyethylene Glycol 3350 [Gavilax] 17 gm PO PRN 04/05/15 Tamsulosin HCl 0.4 mg PO HS 04/05/15 Acetaminophen [Tylenol .Regular Strength -] 650 mg PO Q6H PRN #0 tablet Atenolol [Tenormin -] 100 mg PO DAILY #0 tablet 12/13/15 Insulin (Levemir) [Levemir Vial] 15 unit SQ HS #1 vial 12/13/15 Insulin Sliding Scale [Novolog Vial Sliding Scale -] See Protocol SQ AC #1 pen 12/13/15 Calcitriol [Calcitriol -] 0.25 mcg PO BID #60 capsule 04/15/16 Calcium 500Mg/Vit-D 200 Units [Os-Kaz 500+D -] 2 tab PO DAILY #60 tab 04/15/16 Calcium Acetate [Phoslo -] 1,334 mg PO TIDCM #90 capsule 04/15/16 Collagenase Clostridium Hist. [Santyl -] 1 applic TP DAILY #1 tube 04/15/16 Insulin (Levemir) [Levemir Vial] 5 units SQ HS ml 04/15/16 Family Disease History - Family Disease History Family Disease History: Diabetes: Mother, Sister, Son Review of Systems - Review of Systems Constitutional: reports: Chills, Fever Eyes: reports: No Symptoms HENT: reports: No Symptoms Neck: reports: No Symptoms Cardiovascular: reports: No Symptoms Respiratory: reports: No Symptoms Gastrointestinal: reports: No Symptoms Genitourinary: reports: No Symptoms Musculoskeletal: reports: Other Integumentary: reports: Other Neurological: reports: No Symptoms Endocrine: reports: No Symptoms Hematology/Lymphatic: reports: No Symptoms Psychiatric: reports: No Symptoms Physical Exam Vital Signs: Vital Signs Temperature 97.9 F 07/27/16 08:56 Pulse Rate 76 07/27/16 08:56 Respiratory Rate 18 07/27/16 08:56 Blood Pressure 147/99 07/27/16 08:56 O2 Sat by Pulse Oximetry (%) 97 07/26/16 21:00 Constitutional: Yes: No Distress, Calm Eyes: Yes: Conjunctiva Clear Cardiovascular: Yes: Regular Rate and Rhythm Respiratory: Yes: Regular Gastrointestinal: Yes: Normal Bowel Sounds, Soft Musculoskeletal: Yes: Other Extremities: Yes: Other (leg in cast) Neurological: Yes: Alert, Oriented Psychiatric: Yes: Alert, Oriented Labs: CBC, BMP 07/27/16 06:30 07/27/16 06:30 Imaging - Results Chest X-ray: Report Reviewed, Image Reviewed X-ray: Report Reviewed, Image Reviewed Assessment/Plan we do not know exactly why patient is having fever will await for the cast to be removed and wound seen patient has cast it seems because of charcots looking at her previous history i am going to initiate abx all her cx are negative so far once i have look at the leg i might change abx sepsis esrd r/o wound infection plan continue abx await for ortho to evaluate rest as per primary
[2016-07-27] MEDS ORDERED: PT OWN MED DRAWER 7, Y5N ONE (12:11)
--- NOTE | 2016-07-27 12:37 | PN ---
Progress Note (short form) - Note Progress Note: Subjective: The patient was seen and examined at the bedside, she reports left foot pain. She is asking for her Morphine to be increased. Current Medications Generic Name Dose Route Start Last Admin Trade Name Bernie PRN Reason Stop Dose Admin Acetaminophen 650 mg 07/25/16 23:23 Tylenol - PO Q6H PRN FEVER Amlodipine Besylate 10 mg 07/26/16 10:00 07/27/16 09:37 Norvasc - PO 10 mg DAILY RUBINA Administration Atenolol 50 mg 07/26/16 10:00 07/27/16 09:37 Tenormin - PO 50 mg DAILY RUBINA Administration Atorvastatin Calcium 20 mg 07/26/16 22:00 07/26/16 22:55 Lipitor - PO 20 mg HS RUBINA Administration Calcitriol 0.25 mcg 07/26/16 22:00 07/27/16 09:37 Rocaltrol - PO 0.25 mcg BID RUBINA Administration Calcium Acetate 1,334 mg 07/26/16 17:30 07/27/16 12:13 Phoslo - PO 1,334 mg TIDCM RUBINA Administration Calcium Carbonate/Cholecalciferol 2 tab 07/27/16 10:00 07/27/16 09:37 Os-Kaz 500+D - PO 2 tab DAILY RUBINA Administration Clindamycin HCl 300 mg 07/27/16 12:00 Cleocin - PO Q6HPO RUBINA Collagenase 1 applic 07/27/16 10:00 07/27/16 11:50 Santyl - TP Not Given DAILY RUBINA Ferrous Sulfate 325 mg 07/26/16 10:00 07/27/16 09:37 Feosol - PO 325 mg DAILY RUBINA Administration Heparin Sodium (Porcine) 5,000 unit 07/26/16 10:00 07/27/16 09:36 Heparin - SQ 5,000 unit BID RUBINA Administration Sodium Chloride 1,000 mls @ 100 mls/hr 07/25/16 23:30 07/27/16 01:23 Normal Saline - IV 100 mls/hr ASDIR RUBINA Administration Piperacillin Sod/Tazobactam 50 mls @ 100 mls/hr 07/27/16 18:00 Sod 2.25 gm/ Dextrose IVPB Q8H-IV RUBINA Protocol Insulin Aspart 1 vial 07/26/16 07:00 07/27/16 12:14 Novolog Vial Sliding Scale - SQ 4 units ACHS RUBINA Administration Protocol Morphine Sulfate 1 mg 07/26/16 15:38 07/27/16 10:52 Morphine Injection - IVPUSH 1 mg Q4H PRN Administration PAIN Pantoprazole Sodium 40 mg 07/26/16 10:00 07/27/16 11:50 Protonix 40mg Ivpb (Pre-Docked) IVPB 40 mg DAILY RUBINA Administration Polyethylene Glycol 17 gm 07/26/16 17:00 Miralax (For Daily Use) - PO PRN PRN Tamsulosin HCl 0.4 mg 07/26/16 22:00 07/26/16 22:55 Flomax - PO 0.4 mg HS RUBINA Administration Objective: Vital Signs Period Temp Pulse Resp BP Sys/Guardado Pulse Ox Last 24 Hr 97.8 F-98.9 F 71-87 -18 122-148/70-99 97-99 Physical Exam: General: NAD, A&Ox3 HEENT: B/l strabismus Lungs: CTA bilaterally. Right chest wall permacath Heart: RRR, S1S2 Abd: Soft, non-tender, non-distended. Normoactive bowel sounds Ext: Left foot cast to distal knee. Warm extremity CBCD WBC 6.7 K/mm3 (4.0-10.0) D 07/27/16 06:30 RBC 2.48 M/mm3 (3.60-5.2) L 07/27/16 06:30 Hgb 7.7 GM/dL (10.7-15.3) L 07/27/16 06:30 Hct 23.5 % (32.4-45.2) L 07/27/16 06:30 MCV 94.7 fl (80-96) 07/27/16 06:30 MCHC 32.8 g/dl (32.0-36.0) 07/27/16 06:30 RDW 16.2 % (11.6-15.6) H 07/27/16 06:30 Plt Count 209 K/MM3 (134-434) 07/27/16 06:30 MPV 8.9 fl (7.5-11.1) 07/27/16 06:30 CMP Sodium 133 mmol/L (136-145) L 07/27/16 06:30 Potassium 3.6 mmol/L (3.5-5.1) 07/27/16 06:30 Chloride 98 mmol/L (98-107) 07/27/16 06:30 Carbon Dioxide 24 mmol/L (21-32) 07/27/16 06:30 Anion Gap 11 (8-16) 07/27/16 06:30 BUN 25 mg/dL (7-18) H 07/27/16 06:30 Creatinine 6.7 mg/dL (0.55-1.02) H 07/27/16 06:30 Creat Clearance w eGFR 7.25 (>60) 07/27/16 06:30 Random Glucose 103 mg/dL (74-106) D 07/27/16 06:30 Calcium 7.5 mg/dL (8.5-10.1) L 07/27/16 06:30 Total Bilirubin 0.2 mg/dL (0.2-1.0) 07/27/16 06:30 AST 16 U/L (15-37) D 07/27/16 06:30 ALT 12 U/L (12-78) 07/27/16 06:30 Alkaline Phosphatase 89 U/L (45-117) 07/27/16 06:30 Total Protein 5.2 g/dl (6.4-8.2) L 07/27/16 06:30 Albumin 1.5 g/dl (3.4-5.0) L 07/27/16 06:30 CARDIAC ENZYMES Creatine Kinase 229 IU/L (26-192) H D 07/25/16 21:15 Troponin I 0.03 ng/ml (0.00-0.05) 07/26/16 06:25 Microbiology 07/25/16 16:38 Blood - Peripheral Venous Blood Culture - Preliminary NO GROWTH OBTAINED AFTER 24 HOURS, INCUBATION TO CONTINUE FOR 4 DAYS. 07/25/16 16:38 Blood - Peripheral Venous Blood Culture - Preliminary NO GROWTH OBTAINED AFTER 24 HOURS, INCUBATION TO CONTINUE FOR 4 DAYS. Assessment: This is a 31 year old female with PMHx of IDDM, charcot foot, ESRD ( HD M,W,F), left foot osteomyelitis, b/l retinopathy HTN, hyperlipidemia, GERD, who presented to the ED with chills, nausea, vomiting and sent from [facility] dialysis for vomiting and fever. Plan: 1) ID: Sepsis 2/2 osteomyelitis vs. shiley catheter vs UTI - Lactic acid wnl - Blood cultures NGTD - UA, urine culture pending - Chest X-ray with cardiomegaly, no acute infiltrates or pleural effusions - Continue Clindamycin - Continue Zosyn - Attempt to call Dr. Crews ([phone])MD who placed cast on patient's foot yesterday - While left foot x-ray has marked deformity, cast has obscured the view. Patient reports open wound on left foot and left lr - F/u ortho consult for possible removal of cast to evaluate wound on foot as it can be source of sepsis - F/u podiatry consult - Appreciate ID consult 2) : ESRD on HD - Continue with scheduled HD (M,W,F) - Appreciate nephrology consult 3) Cardiology: HTN - Continue Atenolol - Continue Norvasc Hyperlipidemia: - Continue Lipitor 4) GI: GERD - Continue Protonix 5) F/E/N: - Renal, diabetic diet - Monitor electrolytes 6) Prophylaxis: - Heparin 5,000u sq bid - PT consult 7) Dispo: - Requires continued inpatient care CODE STATUS: FULL CODE Visit type - Emergency Visit Emergency Visit: Yes ED Registration Date: 07/25/16 Care time: The patient presented to the Emergency Department on the above date and was hospitalized for further evaluation of their emergent condition. - New Patient This patient is new to me today: No - Critical Care Critical Care patient: No
[2016-07-27] MEDS: CLINDAMYCIN HCL 150 MG CAPSULE (FP) PO SCH ×2 (14:20→17:36)
[2016-07-27] MEDS: PIPERACILLIN/TAZOB 2.25 GM 50 ML IVPB SCH (17:37)
[2016-07-27] MEDS: TAMSULOSIN HCL 0.4 MG CAP.ER.24H (FP) PO SCH (21:47)
[2016-07-27] MEDS: ATORVASTATIN CA 20 MG TABLET (FP) PO SCH (21:47)
[2016-07-28] MEDS: CLINDAMYCIN HCL 150 MG CAPSULE (FP) PO SCH ×4 (00:10→17:23)
[2016-07-28] MEDS: PIPERACILLIN/TAZOB 2.25 GM 50 ML IVPB SCH ×3 (02:55→17:24)
[2016-07-28] MEDS: INSULIN SLIDING SCALE (NOVOLOG) 1 VIAL SQ SCH ×4 (06:31→21:58)
[2016-07-28 07:35] LABS: BASOPHIL 1.4 % (0-2.0); EOSINOPHIL 7.8 % (0-4.5); MCHC 32.9 g/dl (32.0-36.0); MEAN CELL VOLUME 94.4 fl (80-96); MEAN PLT VOLUME 9.1 fl (7.5-11.1); NEUTROPHILS 45.8 % (42.8-82.8); PLATELET COUNT 218 K/MM3 (134-434); RDW 15.4 % (11.6-15.6); WHITE BLOOD COUNT 4.3 K/mm3 (4.0-10.0)
[2016-07-28] MEDS: morphine CARPU-JECT 2 MG/1 ML DISP.SYRIN IVPUSH PRN ×3 (07:44→22:48)
[2016-07-28] MEDS: CALCIUM ACETATE 667 MG CAPSULE (FP) PO SCH ×3 (07:45→17:23)
[2016-07-28 08:14] LABS: ALBUMIN 1.5 g/dl (3.4-5.0); ALK PHOS 179 U/L (45-117); ANION GAP 10 (8-16); BILIRUBIN,TOTAL 0.2 mg/dL (0.2-1.0); CALCIUM 7.7 mg/dL (8.5-10.1); CO2 23 mmol/L (21-32); CREATININE 7.2 mg/dL (0.55-1.02); GLUCOSE,RANDOM 170 mg/dL (74-106); SGOT/AST 29 U/L (15-37); SGPT/ALT 18 U/L (12-78); TOT PROT 5.3 g/dl (6.4-8.2)
--- NOTE | 2016-07-28 09:22 | CON.ORTH ---
Consult Reason for Consultation:: left foot cast - Past Medical History [employer]: Yes: Peripheral Neuropathy Cardio/Vascular: Yes: HTN, Hyperlipdemia Pulmonary: Yes: COPD Renal/: Yes: Renal Inusuff ...LMP: 10/15/15 Infectious Disease: Yes: Other (bacteremia, removal hardware LLE 11/2014) Musculoskeletal: Yes: Other (+ Charcot Arthropathy Left foot) Endocrine: Yes: Diabetes Mellitus Additional Medical History: diabetic neuropathy - Alcohol/Substance Use Hx Alcohol Use: No History of Substance Use: reports: Marijuana - Smoking History Smoking history: Current every day smoker Have you smoked in the past 12 months: Yes Aproximately how many cigarettes per day: 10 If you are a former smoker, when did you quit?: two months ago - Social History Usual Living Arrangement: Other (has a roommate) ADL: Support Services 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 History of Recent Travel: No Home Medications - Allergies Allergies/Adverse Reactions: Allergies Allergy/AdvReac Type Severity Reaction Status Date / Time Newton And Derivatives Allergy Verified 07/25/16 15:55 sulfamethoxazole Allergy Verified 07/25/16 15:55 [From Bactrim] trimethoprim [From Bactrim] Allergy Verified 07/25/16 15:55 - Home Medications Home Medications: Ambulatory Orders Atorvastatin Ca [Lipitor] 20 mg PO HS tablet 12/14/14 Amlodipine Besylate 10 mg PO DAILY 04/05/15 Ferrous Sulfate [Feosol] 325 mg PO DAILY 04/05/15 Magnesium Oxide 400 mg PO DAILY 04/05/15 Omeprazole [Prilosec] 20 mg PO DAILY 04/05/15 Polyethylene Glycol 3350 [Gavilax] 17 gm PO PRN 04/05/15 Tamsulosin HCl 0.4 mg PO HS 04/05/15 Acetaminophen [Tylenol .Regular Strength -] 650 mg PO Q6H PRN #0 tablet Atenolol [Tenormin -] 100 mg PO DAILY #0 tablet 12/13/15 Insulin (Levemir) [Levemir Vial] 15 unit SQ HS #1 vial 12/13/15 Insulin Sliding Scale [Novolog Vial Sliding Scale -] See Protocol SQ AC #1 pen 12/13/15 Calcitriol [Calcitriol -] 0.25 mcg PO BID #60 capsule 04/15/16 Calcium 500Mg/Vit-D 200 Units [Os-Kaz 500+D -] 2 tab PO DAILY #60 tab 04/15/16 Calcium Acetate [Phoslo -] 1,334 mg PO TIDCM #90 capsule 04/15/16 Collagenase Clostridium Hist. [Santyl -] 1 applic TP DAILY #1 tube 04/15/16 Insulin (Levemir) [Levemir Vial] 5 units SQ HS ml 04/15/16 Family Disease History - Family Disease History Family Disease History: Diabetes: Mother, Sister, Son Physical Exam for Ortho Vital Signs: Vital Signs Temperature 98.5 F 07/28/16 06:00 Pulse Rate 67 07/28/16 06:00 Respiratory Rate 20 07/28/16 06:00 Blood Pressure 122/64 07/28/16 06:00 O2 Sat by Pulse Oximetry (%) 97 07/27/16 21:00 Labs: CBC, BMP 07/28/16 06:00 07/28/16 06:00 INR, PTT INR 1.29 (0.82-1.09) H 07/26/16 06:25 - Lower Extremity Ankle: Yes: Left, Other (cast intact) Imaging - Results X-ray: Report Reviewed, Image Reviewed Assessment/Plan 31 y/o F w/PMH of IDDM, charcot foot, osteomyelitis on L foot, ESRD (dialysis MWF), HTN, HLD, GERD presents to ER w/ c/o of chills, nausea, vomiting and sent from [facility] dialysis after an incomplete dialysis session due to vomiting and fever. This morning pt was in her usual state of health and went to see wound care doctor and after leaving pt felt "deep chills". She then went to dialysis at approximately 1-130pm where she threw up twice (consisting of food and no blood), and had a fever but does not remember temp. She was sent from dialysis to [facility]. She states she has had MRSA bacteremia multiple times in the past. She denies CP, SOB, cough, sputum, PATINO, light-headedness, dizziness, abd pain out of the ordinary, diarrhea, blood in stool, dysuria, frequency, blood in urine, drainage from site of shiley catheter, runny nose, throat pain, throat swelling , visual changes, sick contacts. She states her L foot cast was replaced last Thursday and it was noted that she had good healing in the area. a/p- left foot charcot foot- casted Defer to podiatry for treatment NTD orthopedically d/w Dr. Duncan
[2016-07-28] MEDS: PANTOPRAZOLE SODIUM 40 MG/100 ML PRE-DOCKED IVPB SCH (09:44)
[2016-07-28] MEDS: CALCIUM 500MG/VIT-D 200 UNITS COMBO TABLET (FP) PO SCH (09:44)
[2016-07-28] MEDS: HEPARIN NA (PORCINE) 5,000 UNITS/ML 1ML VIAL SQ SCH ×2 (09:44→21:58)
[2016-07-28] MEDS: amLODIPine BESYLATE 10 MG TABLET (FP) PO SCH ×2 (09:44→17:24)
[2016-07-28] MEDS: FERROUS SO4 325 MG TABLET (FP) PO SCH (09:44)
[2016-07-28] MEDS: CALCITRIOL 0.25 MCG CAPSULE (FP) PO SCH ×2 (09:44→21:58)
[2016-07-28] MEDS: ATENOLOL 50 MG TABLET (FP) PO SCH ×2 (09:45→17:24)
[2016-07-28] MEDS: COLLAGENASE CLOSTRIDIUM HIST. 30 GRAMS TUBE TP SCH (09:45)
--- NOTE | 2016-07-28 10:10 | PN ---
Physical Exam: SUBJECTIVE: Patient seen and examined. She is sitting in the chair in no acute distress. Verbalizes pain of her left leg. OBJECTIVE: Spoke with Dr. Crews ([phone]), who states that she saw patient on Thursday and Thursday and she noted that the wound on the plantar surface of the foot was clean, no drainage, not infected as per Dr. Crews. She is authorizing removal of the boot. Dr. Crews does not have privileges at [facility] [place] and is unable to follow patient here. Spoke with Krish Hoffman , ANDRÉS regarding Dr. Crews's consent to remove cast, Krish Hoffman deferred same to podiatry. Vital Signs Period Temp Pulse Resp BP Sys/Guardado Pulse Ox Last 24 Hr 98.2 F-98.5 F 67-73 18-20 122-142/64-77 97 GENERAL: The patient is awake, alert, and fully oriented, in no acute distress. HEAD: Normal with no signs of trauma. EYES: PERRL, extraocular movements intact, sclera anicteric, conjunctiva clear. No ptosis. ENT: Ears normal, nares patent, oropharynx clear without exudates, moist mucous membranes. NECK: Trachea midline, full range of motion, supple. LUNGS: Breath sounds equal, clear to auscultation bilaterally, no wheezes, no crackles, no accessory muscle use. HEART: Regular rate and rhythm, S1, S2 without murmur, rub or gallop. ABDOMEN: Soft, nontender, nondistended, normoactive bowel sounds, no guarding, no rebound, no hepatosplenomegaly, no masses. EXTREMITIES: left foot casted, has diabetic foot ulcer, NEUROLOGICAL: Normal speech PSYCH: Normal mood, normal affect. Laboratory Results - last 24 hr 07/26/16 07/27/16 07/27/16 21:03 11:58 16:41 WBC RBC Hgb Hct MCV MCHC RDW Plt Count MPV Neutrophils % Lymphocytes % Monocytes % Eosinophils % Basophils % Sodium Potassium Chloride Carbon Dioxide Anion Gap BUN Creatinine Creat Clearance w eGFR POC Glucometer [phone] 192 Random Glucose Calcium Total Bilirubin AST ALT Alkaline Phosphatase Total Protein Albumin 07/27/16 07/28/16 07/28/16 21:43 06:00 06:00 WBC 4.3 D RBC 2.52 L Hgb 7.8 L Hct 23.7 L MCV 94.4 MCHC 32.9 RDW 15.4 Plt Count 218 MPV 9.1 Neutrophils % 45.8 D Lymphocytes % 36.9 D Monocytes % 8.1 Eosinophils % 7.8 H Basophils % 1.4 Sodium 130 L Potassium 4.0 Chloride 97 L Carbon Dioxide 23 Anion Gap 10 BUN 27 H Creatinine 7.2 H Creat Clearance w eGFR 6.67 POC Glucometer 235 Random Glucose 170 H D Calcium 7.7 L Total Bilirubin 0.2 AST 29 D ALT 18 D Alkaline Phosphatase 179 H D Total Protein 5.3 L Albumin 1.5 L 07/28/16 06:30 WBC RBC Hgb Hct MCV MCHC RDW Plt Count MPV Neutrophils % Lymphocytes % Monocytes % Eosinophils % Basophils % Sodium Potassium Chloride Carbon Dioxide Anion Gap BUN Creatinine Creat Clearance w eGFR POC Glucometer 194 Random Glucose Calcium Total Bilirubin AST ALT Alkaline Phosphatase Total Protein Albumin Active Medications Generic Name Dose Route Start Last Admin Trade Name Freq PRN Reason Stop Dose Admin Acetaminophen 650 mg 07/25/16 23:23 Tylenol - PO Q6H PRN FEVER Amlodipine Besylate 10 mg 07/26/16 10:00 07/28/16 09:44 Norvasc - PO Not Given DAILY [facility] Atenolol 50 mg 07/26/16 10:00 07/28/16 09:45 Tenormin - PO Not Given DAILY [facility] Atorvastatin Calcium 20 mg 07/26/16 22:00 07/27/16 21:47 Lipitor - PO 20 mg HS [facility] Administration Calcitriol 0.25 mcg 07/26/16 22:00 07/28/16 09:44 Rocaltrol - PO 0.25 mcg BID [facility] Administration Calcium Acetate 1,334 mg 07/26/16 17:30 07/28/16 07:45 Phoslo - PO 1,334 mg TIDCM [facility] Administration Calcium Carbonate/Cholecalciferol 2 tab 07/27/16 10:00 07/28/16 09:44 Os-Kaz 500+D - PO 2 tab DAILY [facility] Administration Clindamycin HCl 300 mg 07/27/16 12:00 07/28/16 06:31 Cleocin - PO 300 mg Q6HPO [facility] Administration Collagenase 1 applic 07/27/16 10:00 07/28/16 09:45 Santyl - TP Not Given DAILY [facility] Ferrous Sulfate 325 mg 07/26/16 10:00 07/28/16 09:44 Feosol - PO 325 mg DAILY [facility] Administration Heparin Sodium (Porcine) 5,000 unit 07/26/16 10:00 07/28/16 09:44 Heparin - SQ Not Given BID [facility] Sodium Chloride 1,000 mls @ 100 mls/hr 07/25/16 23:30 07/27/16 01:23 Normal Saline - IV 100 mls/hr ASDIR [facility] Administration Piperacillin Sod/Tazobactam Sod 50 mls @ 100 mls/hr 07/27/16 18:00 07/28/16 09: 43 Zosyn 2.25gm Ivpb (Pre-Docked) IVPB 100 mls/hr Q8H-IV [facility] Administration Protocol Insulin Aspart 1 vial 07/26/16 07:00 07/28/16 06:31 Novolog Vial Sliding Scale - SQ 2 units ACHS [facility] Administration Protocol Morphine Sulfate 1 mg 07/26/16 15:38 07/28/16 07:44 Morphine Injection - IVPUSH 1 mg Q4H PRN Administration PAIN Pantoprazole Sodium 40 mg 07/26/16 10:00 07/28/16 09:44 Protonix 40mg Ivpb (Pre-Docked) IVPB 40 mg DAILY [facility] Administration Polyethylene Glycol 17 gm 07/26/16 17:00 Miralax (For Daily Use) - PO PRN PRN Tamsulosin HCl 0.4 mg 07/26/16 22:00 07/27/16 21:47 Flomax - PO 0.4 mg HS [facility] Administration ASSESSMENT/PLAN: Patient is a 31 year old female with a significant past medical history of diabetes mellitus, 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 She presented to the ED on 07/25/2016 chills, nausea, vomiting and sent from [facility] dialysis for vomiting and fever. ID: Sepsis/Fever of unknown origin - left foot diabetic ulceration vs. dialysis catheter Assessment/Plan: Blood cultures with no growth to date, urine cultures pending WBC within normal limits, normal lactic acid levels Chest xray with no evidence of acute pathology Spoke with Dr. Crews ([phone]), who states that she saw patient on Thursday and Thursday and she noted that the wound on the plantar surface of the foot was clean, no drainage, not infected as per Dr. Crews. She is authorizing removal of the boot. Dr. Crews does not have privileges at [place] and is unable to follow patient here. Spoke with Krish BOWEN , ANDRÉS regarding Dr. Crews's consent to remove cast, Krish Hoffman deferred same to podiatry. Awaiting podiatry input On Zosyn 2.25gm q8 started 07/27, On Clindamycin q6 PO Monitor vitals, labs, cultures GI: Nausea, vomiting - resolved Assessment/Plan: Likely gastritis secondary to vomiting episodes no longer having any nausea/vomiting : Chronic Kidney Disease - chronic Assessment/Plan: on MWF schedule through dialysis catheter, awaiting AV fistula Dialysis today Endocrine: Assessment/Plan: On a sliding scale monitor BGMs. Hematology: Anemia - stable Assessment/Plan: low h/h stable On Ferrous Sulfate 325mg daily Cardiology: Hypertension - chronic Assessment/Plan: BP controlled on Atenolol 50mg qd and Norvasc 10md qd Hyperlipidemia: Assessment/Plan: On Lipitor 20mg @ hs Muscular/Skeletal: Osteomyelitis/diabetic ulcers/charcoat left foot Assessment/Plan: may be source of infection? As per Dr. Crews; wound was c/d/i and appeared non infected prior to placing cast on Thursday Podiatry consulted F.E.N. Fluids: tolerating PO Electrolytes: monitor Nutrition: Renal diet Prophylaxis: GI: Protonix DVT: Heparin Dispo: Full code. Requires inpatient hospitalization. Visit type - Emergency Visit Emergency Visit: Yes ED Registration Date: 07/25/16 Care time: The patient presented to the Emergency Department on the above date and was hospitalized for further evaluation of their emergent condition. - New Patient This patient is new to me today: Yes Date on this admission: 07/28/16 - Critical Care Critical Care patient: No - Discharge Referral Referred to [facility] Med P.C.: No
--- NOTE | 2016-07-28 14:39 | PN ---
Progress Note, Physician History of Present Illness: Pt seen and examined at bedside. She is awake and alert. She is currently getting HD. - Current Medication List Current Medications: Active Medications Acetaminophen (Tylenol -) 650 mg PO Q6H PRN PRN Reason: FEVER Amlodipine Besylate (Norvasc -) 10 mg PO DAILY [facility] Last Admin: 07/28/16 09:44 Dose: Not Given Atenolol (Tenormin -) 50 mg PO DAILY [facility] Last Admin: 07/28/16 09:45 Dose: Not Given Atorvastatin Calcium (Lipitor -) 20 mg PO HS [facility] Last Admin: 07/27/16 21:47 Dose: 20 mg Calcitriol (Rocaltrol -) 0.25 mcg PO BID [facility] Last Admin: 07/28/16 09:44 Dose: 0.25 mcg Calcium Acetate (Phoslo -) 1,334 mg PO TIDCM [facility] Last Admin: 07/28/16 12:26 Dose: Not Given Calcium Carbonate/Cholecalciferol (Os-Kaz 500+D -) 2 tab PO DAILY [facility] Last Admin: 07/28/16 09:44 Dose: 2 tab Clindamycin HCl (Cleocin -) 300 mg PO Q6HPO [facility] Last Admin: 07/28/16 12:26 Dose: Not Given Collagenase (Santyl -) 1 applic TP DAILY [facility] Last Admin: 07/28/16 09:45 Dose: Not Given Ferrous Sulfate (Feosol -) 325 mg PO DAILY [facility] Last Admin: 07/28/16 09:44 Dose: 325 mg Heparin Sodium (Porcine) (Heparin -) 5,000 unit SQ BID [facility] Last Admin: 07/28/16 09:44 Dose: Not Given Sodium Chloride (Normal Saline -) 1,000 mls @ 100 mls/hr IV ASDIR [facility] Last Admin: 07/27/16 01:23 Dose: 100 mls/hr Piperacillin Sod/Tazobactam Sod (Zosyn 2.25gm Ivpb (Pre-Docked)) 50 mls @ 100 mls/hr IVPB Q8H-IV [facility] PRN Reason: Protocol Last Admin: 07/28/16 09:43 Dose: 100 mls/hr Insulin Aspart (Novolog Vial Sliding Scale -) 1 vial SQ ACHS [facility] PRN Reason: Protocol Last Admin: 07/28/16 12:25 Dose: Not Given Morphine Sulfate (Morphine Injection -) 1 mg IVPUSH Q4H PRN PRN Reason: PAIN Last Admin: 07/28/16 07:44 Dose: 1 mg Pantoprazole Sodium (Protonix 40mg Ivpb (Pre-Docked)) 40 mg IVPB DAILY [facility] Last Admin: 07/28/16 09:44 Dose: 40 mg Polyethylene Glycol (Miralax (For Daily Use) -) 17 gm PO PRN PRN Tamsulosin HCl (Flomax -) 0.4 mg PO HS [facility] Last Admin: 07/27/16 21:47 Dose: 0.4 mg - Objective Vital Signs: Vital Signs Temperature 98.8 F 07/28/16 12:25 Pulse Rate 78 07/28/16 14:00 Respiratory Rate 18 07/28/16 14:00 Blood Pressure 166/88 07/28/16 14:00 O2 Sat by Pulse Oximetry (%) 97 07/28/16 09:00 Constitutional: Yes: Calm HENT: Yes: Atraumatic Neck: Yes: Supple Cardiovascular: Yes: S1, S2 Respiratory: Yes: CTA Bilaterally Gastrointestinal: Yes: Normal Bowel Sounds, Abdomen, Obese Genitourinary: Yes: WNL Edema: Yes Neurological: Yes: Oriented Psychiatric: Yes: Oriented Labs: CBC, BMP 07/28/16 06:00 07/28/16 06:00 INR, PTT INR 1.29 (0.82-1.09) H 07/26/16 06:25 Problem List - Problems (1) Diabetic foot infection Code(s): E11.69 - TYPE 2 DIABETES MELLITUS WITH OTHER SPECIFIED COMPLICATION L08.9 - LOCAL INFECTION OF THE SKIN AND SUBCUTANEOUS TISSUE, UNSP (2) ESRD (end stage renal disease) Code(s): N18.6 - END STAGE RENAL DISEASE (3) HTN (hypertension) Code(s): I10 - ESSENTIAL (PRIMARY) HYPERTENSION Assessment/Plan Current Medications Generic Name Dose Route Start Last Admin Trade Name Freq PRN Reason Stop Dose Admin Acetaminophen 650 mg 07/25/16 23:23 Tylenol - PO Q6H PRN FEVER Amlodipine Besylate 10 mg 07/26/16 10:00 07/28/16 09:44 Norvasc - PO Not Given DAILY [facility] Atenolol 50 mg 07/26/16 10:00 07/28/16 09:45 Tenormin - PO Not Given DAILY [facility] Atorvastatin Calcium 20 mg 07/26/16 22:00 07/27/16 21:47 Lipitor - PO 20 mg HS [facility] Administration Calcitriol 0.25 mcg 07/26/16 22:00 07/28/16 09:44 Rocaltrol - PO 0.25 mcg BID [facility] Administration Calcium Acetate 1,334 mg 07/26/16 17:30 07/28/16 12:26 Phoslo - PO Not Given TIDCM [facility] Calcium Carbonate/Cholecalciferol 2 tab 07/27/16 10:00 07/28/16 09:44 Os-Kaz 500+D - PO 2 tab DAILY [facility] Administration Clindamycin HCl 300 mg 07/27/16 12:00 07/28/16 12:26 Cleocin - PO Not Given Q6HPO [facility] Collagenase 1 applic 07/27/16 10:00 07/28/16 09:45 Santyl - TP Not Given DAILY [facility] Ferrous Sulfate 325 mg 07/26/16 10:00 07/28/16 09:44 Feosol - PO 325 mg DAILY [facility] Administration Heparin Sodium (Porcine) 5,000 unit 07/26/16 10:00 07/28/16 09:44 Heparin - SQ Not Given BID [facility] Sodium Chloride 1,000 mls @ 100 mls/hr 07/25/16 23:30 07/27/16 01:23 Normal Saline - IV 100 mls/hr ASDIR [facility] Administration Piperacillin Sod/Tazobactam Sod 50 mls @ 100 mls/hr 07/27/16 18:00 07/28/16 09: 43 Zosyn 2.25gm Ivpb (Pre-Docked) IVPB 100 mls/hr Q8H-IV [facility] Administration Protocol Insulin Aspart 1 vial 07/26/16 07:00 07/28/16 12:25 Novolog Vial Sliding Scale - SQ Not Given ACHS [facility] Protocol Morphine Sulfate 1 mg 07/26/16 15:38 07/28/16 07:44 Morphine Injection - IVPUSH 1 mg Q4H PRN Administration PAIN Pantoprazole Sodium 40 mg 07/26/16 10:00 07/28/16 09:44 Protonix 40mg Ivpb (Pre-Docked) IVPB 40 mg DAILY [facility] Administration Polyethylene Glycol 17 gm 07/26/16 17:00 Miralax (For Daily Use) - PO PRN PRN Tamsulosin HCl 0.4 mg 07/26/16 22:00 07/27/16 21:47 Flomax - PO 0.4 mg HS [facility] Administration Impression 1. ESRD 2. Sepsis 3. DFU 4. HTN 5. anemia 6. mild hyponatremia Plan - HD today - follow cultures - cont current meds - stop fluids - monitor blood pressure - will follow Dr Ponce
--- NOTE | 2016-07-28 16:55 | PN ---
Progress Note, Physician History of Present Illness: stable no new issues - Current Medication List Current Medications: Active Medications Acetaminophen (Tylenol -) 650 mg PO Q6H PRN PRN Reason: FEVER Amlodipine Besylate (Norvasc -) 10 mg PO DAILY [facility] Last Admin: 07/28/16 09:44 Dose: Not Given Atenolol (Tenormin -) 50 mg PO DAILY [facility] Last Admin: 07/28/16 09:45 Dose: Not Given Atorvastatin Calcium (Lipitor -) 20 mg PO HS [facility] Last Admin: 07/27/16 21:47 Dose: 20 mg Calcitriol (Rocaltrol -) 0.25 mcg PO BID [facility] Last Admin: 07/28/16 09:44 Dose: 0.25 mcg Calcium Acetate (Phoslo -) 1,334 mg PO TIDCM [facility] Last Admin: 07/28/16 12:26 Dose: Not Given Calcium Carbonate/Cholecalciferol (Os-Kaz 500+D -) 2 tab PO DAILY [facility] Last Admin: 07/28/16 09:44 Dose: 2 tab Clindamycin HCl (Cleocin -) 300 mg PO Q6HPO [facility] Last Admin: 07/28/16 12:26 Dose: Not Given Collagenase (Santyl -) 1 applic TP DAILY [facility] Last Admin: 07/28/16 09:45 Dose: Not Given Ferrous Sulfate (Feosol -) 325 mg PO DAILY [facility] Last Admin: 07/28/16 09:44 Dose: 325 mg Heparin Sodium (Porcine) (Heparin -) 5,000 unit SQ BID [facility] Last Admin: 07/28/16 09:44 Dose: Not Given Piperacillin Sod/Tazobactam Sod (Zosyn 2.25gm Ivpb (Pre-Docked)) 50 mls @ 100 mls/hr IVPB Q8H-IV [facility] PRN Reason: Protocol Last Admin: 07/28/16 09:43 Dose: 100 mls/hr Insulin Aspart (Novolog Vial Sliding Scale -) 1 vial SQ ACHS [facility] PRN Reason: Protocol Last Admin: 07/28/16 12:25 Dose: Not Given Morphine Sulfate (Morphine Injection -) 1 mg IVPUSH Q4H PRN PRN Reason: PAIN Last Admin: 07/28/16 07:44 Dose: 1 mg Pantoprazole Sodium (Protonix 40mg Ivpb (Pre-Docked)) 40 mg IVPB DAILY [facility] Last Admin: 07/28/16 09:44 Dose: 40 mg Polyethylene Glycol (Miralax (For Daily Use) -) 17 gm PO PRN PRN Tamsulosin HCl (Flomax -) 0.4 mg PO HS [facility] Last Admin: 07/27/16 21:47 Dose: 0.4 mg - Objective Vital Signs: Vital Signs Temperature 98.8 F 07/28/16 12:25 Pulse Rate 72 07/28/16 16:05 Respiratory Rate 18 07/28/16 16:05 Blood Pressure 177/81 07/28/16 16:05 O2 Sat by Pulse Oximetry (%) 97 07/28/16 09:00 Constitutional: Yes: No Distress, Calm Cardiovascular: Yes: Regular Rate and Rhythm Respiratory: Yes: Regular, CTA Bilaterally Gastrointestinal: Yes: Normal Bowel Sounds, Soft Musculoskeletal: Yes: Other Extremities: Yes: Other Neurological: Yes: Alert, Oriented Psychiatric: Yes: Alert, Oriented Labs: CBC, BMP 07/28/16 06:00 07/28/16 06:00 INR, PTT INR 1.29 (0.82-1.09) H 07/26/16 06:25 Assessment/Plan sepsis esrd r/o wound infection plan continue current abx await for ortho to evaluate the patient
[2016-07-28] MEDS ORDERED: PT OWN MED DRAWER 7, Y5N ONE (16:58)
[2016-07-28] MEDS ORDERED: INSULIN (NOVOLOG) ASPART 100 UNITS/ML 10ML VIAL ONE (17:02)
[2016-07-28] MEDS: TAMSULOSIN HCL 0.4 MG CAP.ER.24H (FP) PO SCH (21:57)
[2016-07-28] MEDS: ATORVASTATIN CA 20 MG TABLET (FP) PO SCH (21:58)
[2016-07-29] MEDS: CLINDAMYCIN HCL 150 MG CAPSULE (FP) PO SCH ×4 (00:04→17:32)
[2016-07-29] MEDS: PIPERACILLIN/TAZOB 2.25 GM 50 ML IVPB SCH ×3 (01:34→17:32)
[2016-07-29] MEDS: INSULIN SLIDING SCALE (NOVOLOG) 1 VIAL SQ SCH ×4 (06:34→22:22)
[2016-07-29] MEDS: CALCIUM ACETATE 667 MG CAPSULE (FP) PO SCH ×3 (09:07→17:32)
[2016-07-29] MEDS: PANTOPRAZOLE SODIUM 40 MG/100 ML PRE-DOCKED IVPB SCH (09:07)
[2016-07-29] MEDS: CALCITRIOL 0.25 MCG CAPSULE (FP) PO SCH ×2 (09:07→22:24)
[2016-07-29] MEDS: CALCIUM 500MG/VIT-D 200 UNITS COMBO TABLET (FP) PO SCH (09:08)
[2016-07-29] MEDS: FERROUS SO4 325 MG TABLET (FP) PO SCH (09:08)
[2016-07-29] MEDS: ATENOLOL 50 MG TABLET (FP) PO SCH (09:08)
[2016-07-29] MEDS: amLODIPine BESYLATE 10 MG TABLET (FP) PO SCH (09:08)
[2016-07-29] MEDS: COLLAGENASE CLOSTRIDIUM HIST. 30 GRAMS TUBE TP SCH (09:08)
[2016-07-29] MEDS: HEPARIN NA (PORCINE) 5,000 UNITS/ML 1ML VIAL SQ SCH ×2 (09:11→22:23)
[2016-07-29] MEDS: morphine CARPU-JECT 2 MG/1 ML DISP.SYRIN IVPUSH PRN ×3 (09:51→22:55)
[2016-07-29] MEDS ORDERED: INSULIN (NOVOLOG) ASPART 100 UNITS/ML 10ML VIAL ONE (12:05)
[2016-07-29] MEDS ORDERED: PT OWN MED DRAWER 7, Y5N ONE ×2 (12:06→16:59)
--- NOTE | 2016-07-29 12:32 | PN ---
Physical Exam: SUBJECTIVE: Patient seen and examined. Verbalizes pain of her left lower extremity. Denies chest pain, or shortness of breath. OBJECTIVE: Spoke with Dr. Crews yesterday ([phone]), who states that she saw patient on Thursday and Thursday and she noted that the wound on the plantar surface of the foot was clean, no drainage, not infected as per Dr. Crews. She is authorizing removal of the boot. Dr. Crews does not have privileges at [facility] and is unable to follow patient here. Spoke with Krish Hoffman yesterday , ANDRÉS regarding Dr. Crews's consent to remove cast, Krish Hoffman deferred same to podiatry. Podiatry to remove boot today. Vital Signs Period Temp Pulse Resp BP Sys/Guard[place] Pulse Ox Last 24 Hr 97.9 F-98.6 F 72-81 18-20 146-191/72-101 97-97 GENERAL: The patient is awake, alert, and fully oriented, in no acute distress. HEAD: Normal with no signs of trauma. EYES: PERRL, extraocular movements intact, sclera anicteric, conjunctiva clear. No ptosis. ENT: Ears normal, nares patent, oropharynx clear without exudates, moist mucous membranes. NECK: Trachea midline, full range of motion, supple. LUNGS: Breath sounds equal, clear to auscultation bilaterally, no wheezes, no crackles, no accessory muscle use. HEART: Regular rate and rhythm, S1, S2 without murmur, rub or gallop. ABDOMEN: Soft, nontender, nondistended, normoactive bowel sounds, no guarding, no rebound, no hepatosplenomegaly, no masses. EXTREMITIES: left foot fiberglass casted, has diabetic foot ulcer, NEUROLOGICAL: Normal speech PSYCH: Normal mood, normal affect. Laboratory Results - last 24 hr 07/26/16 07/26/16 07/28/16 13:05 17:48 12:30 POC Glucometer 283.27259 [id number] Hepatitis C Antibody Cancelled Blood Type Antibody Screen Antibody Identification Antigen Identification Direct Antiglob Test 07/28/16 07/28/16 07/28/16 12:30 12:50 16:55 POC Glucometer 313 Hepatitis C Antibody <0.1 Blood Type A POSITIVE Antibody Screen Positive H Antibody Identification K Antigen Identification Y Direct Antiglob Test Negative 07/28/16 07/29/16 07/29/16 21:49 05:37 11:48 POC Glucometer 168 148 244 Hepatitis C Antibody Blood Type Antibody Screen Antibody Identification Antigen Identification Direct Antiglob Test Active Medications Generic Name Dose Route Start Last Admin Trade Name Freq PRN Reason Stop Dose Admin Acetaminophen 650 mg 07/25/16 23:23 Tylenol - PO Q6H PRN FEVER Amlodipine Besylate 10 mg 07/26/16 10:00 07/29/16 09:08 Norvasc - PO 10 mg DAILY [facility] Administration Atenolol 50 mg 07/26/16 10:00 07/29/16 09:08 Tenormin - PO 50 mg DAILY [facility] Administration Atorvastatin Calcium 20 mg 07/26/16 22:00 07/28/16 21:58 Lipitor - PO 20 mg HS [facility] Administration Calcitriol 0.25 mcg 07/26/16 22:00 07/29/16 09:07 Rocaltrol - PO 0.25 mcg BID [facility] Administration Calcium Acetate 1,334 mg 07/26/16 17:30 07/29/16 12:24 Phoslo - PO 1,334 mg TIDCM [facility] Administration Calcium Carbonate/Cholecalciferol 2 tab 07/27/16 10:00 07/29/16 09:08 Os-Kaz 500+D - PO 2 tab DAILY [facility] Administration Clindamycin HCl 300 mg 07/27/16 12:00 07/29/16 05:39 Cleocin - PO 300 mg Q6HPO [facility] Administration Collagenase 1 applic 07/27/16 10:00 07/29/16 09:08 Santyl - TP Not Given DAILY [facility] Ferrous Sulfate 325 mg 07/26/16 10:00 07/29/16 09:08 Feosol - PO 325 mg DAILY [facility] Administration Heparin Sodium (Porcine) 5,000 unit 07/26/16 10:00 07/29/16 09:11 Heparin - SQ 5,000 unit BID [facility] Administration Piperacillin Sod/Tazobactam Sod 50 mls @ 100 mls/hr 07/27/16 18:00 07/29/16 09: 51 Zosyn 2.25gm Ivpb (Pre-Docked) IVPB 100 mls/hr Q8H-IV [facility] Administration Protocol Insulin Aspart 1 vial 07/26/16 07:00 06/20/17 12:24 Novolog Vial Sliding Scale - SQ 4 units ACHS [facility] Administration Protocol Morphine Sulfate 2 mg 07/29/16 12:31 Morphine Injection - IVPUSH Q4H PRN PAIN Pantoprazole Sodium 40 mg 07/26/16 10:00 07/29/16 09:07 Protonix 40mg Ivpb (Pre-Docked) IVPB 40 mg DAILY [facility] Administration Polyethylene Glycol 17 gm 07/26/16 17:00 Miralax (For Daily Use) - PO PRN PRN Tamsulosin HCl 0.4 mg 07/26/16 22:00 07/28/16 21:57 Flomax - PO 0.4 mg HS [facility] Administration ASSESSMENT/PLAN: Patient is a 31 year old female with a significant past medical history of diabetes mellitus, 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 She presented to the ED on 07/25/2016 chills, nausea, vomiting and sent from [facility] dialysis for vomiting and fever. ID: Sepsis/Fever of unknown origin - left foot diabetic ulceration vs. dialysis catheter - improving Assessment/Plan: Blood cultures with no growth to date, urine cultures negative WBC within normal limits, normal lactic acid levels, remains afebrile Chest xray with no evidence of acute pathology On 07/28, I spoke with Dr. Crews ([phone]), who states that she recently saw patient on Thursday and Thursday and she noted that the wound on the plantar surface of the foot was clean, with no drainage, not infected as per Dr. Crews. She is authorizing removal of the boot. Dr. Crews does not have privileges at [facility] and is unable to follow patient here. Spoke with Krish BOWEN , [place] regarding Dr. Crews's consent to remove cast, Krish Hoffman deferred same to podiatry. Podiatry to remove boot today On Zosyn 2.25gm q8 started 07/27, On Clindamycin q6 PO Monitor vitals, labs, cultures Manage pain with morphine 2mg iv prn GI: Nausea, vomiting - resolved Assessment/Plan: Likely gastritis secondary to vomiting episodes no longer having any nausea/vomiting : Chronic Kidney Disease - chronic Assessment/Plan: on MWF schedule through dialysis catheter, awaiting AV fistula Dialysis yesterday Endocrine: Assessment/Plan: On a sliding scale monitor BGMs. Hematology: Anemia - stable Assessment/Plan: low h/h stable On Ferrous Sulfate 325mg daily transfuse if hmg <7 Cardiology: Hypertension - chronic Assessment/Plan: BP controlled on Atenolol 50mg qd and Norvasc 10md qd Hyperlipidemia: Assessment/Plan: On Lipitor 20mg @ hs Muscular/Skeletal: Osteomyelitis/diabetic ulcers/charcoat left foot Assessment/Plan: may be source of infection? As per Dr. Crews; wound was c/d/i and appeared non infected prior to placing cast on Thursday Podiatry consulted F.E.N. Fluids: tolerating PO Electrolytes: monitor Nutrition: Renal diet Prophylaxis: GI: Protonix DVT: Heparin Dispo: Full code. Requires inpatient hospitalization. Visit type - Emergency Visit Emergency Visit: Yes ED Registration Date: 07/25/16 Care time: The patient presented to the Emergency Department on the above date and was hospitalized for further evaluation of their emergent condition. - New Patient This patient is new to me today: No - Critical Care Critical Care patient: No - Discharge Referral Referred to [facility] Med [facility] No
[2016-07-29 13:22] LABS: BASOPHIL 1.4 % (0-2.0); EOSINOPHIL 5.5 % (0-4.5); MCH 30.7 pg (25.7-33.7); MCHC 32.4 g/dl (32.0-36.0); MEAN CELL VOLUME 94.5 fl (80-96); MEAN PLT VOLUME 8.3 fl (7.5-11.1); NEUTROPHILS 60.7 % (42.8-82.8); PLATELET COUNT 295 K/MM3 (134-434); RDW 15.5 % (11.6-15.6)
[2016-07-29 13:45] LABS: ALBUMIN 1.8 g/dl (3.4-5.0); ALK PHOS 164 U/L (45-117); ANION GAP 10 (8-16); BILIRUBIN,TOTAL 0.3 mg/dL (0.2-1.0); CALCIUM 8.1 mg/dL (8.5-10.1); CO2 28 mmol/L (21-32); CREATININE 5.1 mg/dL (0.55-1.02); GLUCOSE,RANDOM 244 mg/dL (74-106); SGOT/AST 21 U/L (15-37); SGPT/ALT 16 U/L (12-78); TOT PROT 6.1 g/dl (6.4-8.2)
--- NOTE | 2016-07-29 16:01 | PN ---
Progress Note, Physician History of Present Illness: stable no new issues awaiting for removal of her cast - Current Medication List Current Medications: Active Medications Acetaminophen (Tylenol -) 650 mg PO Q6H PRN PRN Reason: FEVER Amlodipine Besylate (Norvasc -) 10 mg PO DAILY [facility] Last Admin: 07/29/16 09:08 Dose: 10 mg Atenolol (Tenormin -) 50 mg PO DAILY [facility] Last Admin: 07/29/16 09:08 Dose: 50 mg Atorvastatin Calcium (Lipitor -) 20 mg PO HS [facility] Last Admin: 07/28/16 21:58 Dose: 20 mg Calcitriol (Rocaltrol -) 0.25 mcg PO BID [facility] Last Admin: 07/29/16 09:07 Dose: 0.25 mcg Calcium Acetate (Phoslo -) 1,334 mg PO TIDCM [facility] Last Admin: 07/29/16 12:24 Dose: 1,334 mg Calcium Carbonate/Cholecalciferol (Os-Kaz 500+D -) 2 tab PO DAILY [facility] Last Admin: 07/29/16 09:08 Dose: 2 tab Clindamycin HCl (Cleocin -) 300 mg PO Q6HPO [facility] Last Admin: 07/29/16 13:36 Dose: 300 mg Collagenase (Santyl -) 1 applic TP DAILY [facility] Last Admin: 07/29/16 09:08 Dose: Not Given Ferrous Sulfate (Feosol -) 325 mg PO DAILY [facility] Last Admin: 07/29/16 09:08 Dose: 325 mg Heparin Sodium (Porcine) (Heparin -) 5,000 unit SQ BID [facility] Last Admin: 07/29/16 09:11 Dose: 5,000 unit Piperacillin Sod/Tazobactam Sod (Zosyn 2.25gm Ivpb (Pre-Docked)) 50 mls @ 100 mls/hr IVPB Q8H-IV [facility] PRN Reason: Protocol Last Admin: 07/29/16 09:51 Dose: 100 mls/hr Insulin Aspart (Novolog Vial Sliding Scale -) 1 vial SQ ACHS [facility] PRN Reason: Protocol Last Admin: 07/29/16 12:24 Dose: 4 units Morphine Sulfate (Morphine Injection -) 2 mg IVPUSH Q4H PRN PRN Reason: PAIN Pantoprazole Sodium (Protonix 40mg Ivpb (Pre-Docked)) 40 mg IVPB DAILY [facility] Last Admin: 07/29/16 09:07 Dose: 40 mg Polyethylene Glycol (Miralax (For Daily Use) -) 17 gm PO PRN PRN Tamsulosin HCl (Flomax -) 0.4 mg PO HS [facility] Last Admin: 07/28/16 21:57 Dose: 0.4 mg - Objective Vital Signs: Vital Signs Temperature 98.2 F 07/29/16 15:09 Pulse Rate 74 07/29/16 15:09 Respiratory Rate 16 07/29/16 15:09 Blood Pressure 142/73 07/29/16 15:09 O2 Sat by Pulse Oximetry (%) 97 07/29/16 09:00 Constitutional: Yes: No Distress, Calm Cardiovascular: Yes: Regular Rate and Rhythm Respiratory: Yes: Regular, CTA Bilaterally Gastrointestinal: Yes: Normal Bowel Sounds, Soft Wound/Incision: Yes: Other (cast still present) Neurological: Yes: Alert, Oriented Psychiatric: Yes: Alert, Oriented Labs: CBC, BMP 07/29/16 13:03 07/29/16 13:03 INR, PTT INR 1.29 (0.82-1.09) H 07/26/16 06:25 Assessment/Plan sepsis esrd r/o wound infection plan continue current abx await for cast to be removed
--- NOTE | 2016-07-29 18:01 | PN ---
Progress Note, Physician History of Present Illness: Pt seen and examined at bedside. She is awake and alert. She tolerated HD yesterday. - Current Medication List Current Medications: Active Medications Acetaminophen (Tylenol -) 650 mg PO Q6H PRN PRN Reason: FEVER Amlodipine Besylate (Norvasc -) 10 mg PO DAILY [facility] Last Admin: 07/29/16 09:08 Dose: 10 mg Atenolol (Tenormin -) 50 mg PO DAILY [facility] Last Admin: 07/29/16 09:08 Dose: 50 mg Atorvastatin Calcium (Lipitor -) 20 mg PO HS [facility] Last Admin: 07/28/16 21:58 Dose: 20 mg Calcitriol (Rocaltrol -) 0.25 mcg PO BID [facility] Last Admin: 07/29/16 09:07 Dose: 0.25 mcg Calcium Acetate (Phoslo -) 1,334 mg PO TIDCM [facility] Last Admin: 07/29/16 17:32 Dose: 1,334 mg Calcium Carbonate/Cholecalciferol (Os-Kaz 500+D -) 2 tab PO DAILY [facility] Last Admin: 07/29/16 09:08 Dose: 2 tab Clindamycin HCl (Cleocin -) 300 mg PO Q6HPO [facility] Last Admin: 07/29/16 17:32 Dose: 300 mg Collagenase (Santyl -) 1 applic TP DAILY [facility] Last Admin: 07/29/16 09:08 Dose: Not Given Ferrous Sulfate (Feosol -) 325 mg PO DAILY [facility] Last Admin: 07/29/16 09:08 Dose: 325 mg Heparin Sodium (Porcine) (Heparin -) 5,000 unit SQ BID [facility] Last Admin: 07/29/16 09:11 Dose: 5,000 unit Piperacillin Sod/Tazobactam Sod (Zosyn 2.25gm Ivpb (Pre-Docked)) 50 mls @ 100 mls/hr IVPB Q8H-IV [facility] PRN Reason: Protocol Last Admin: 07/29/16 17:32 Dose: 100 mls/hr Insulin Aspart (Novolog Vial Sliding Scale -) 1 vial SQ ACHS [facility] PRN Reason: Protocol Last Admin: 07/29/16 17:44 Dose: 4 units Morphine Sulfate (Morphine Injection -) 2 mg IVPUSH Q4H PRN PRN Reason: PAIN Last Admin: 07/29/16 16:21 Dose: 2 mg Pantoprazole Sodium (Protonix 40mg Ivpb (Pre-Docked)) 40 mg IVPB DAILY [facility] Last Admin: 07/29/16 09:07 Dose: 40 mg Polyethylene Glycol (Miralax (For Daily Use) -) 17 gm PO PRN PRN Tamsulosin HCl (Flomax -) 0.4 mg PO HS [facility] Last Admin: 07/28/16 21:57 Dose: 0.4 mg - Objective Vital Signs: Vital Signs Temperature 98.2 F 07/29/16 15:09 Pulse Rate 74 07/29/16 15:09 Respiratory Rate 16 07/29/16 15:09 Blood Pressure 142/73 07/29/16 15:09 O2 Sat by Pulse Oximetry (%) 97 07/29/16 09:00 Constitutional: Yes: Calm HENT: Yes: Atraumatic Cardiovascular: Yes: S1, S2 Respiratory: Yes: CTA Bilaterally Gastrointestinal: Yes: Soft Genitourinary: Yes: WNL Musculoskeletal: Yes: WNL Edema: No Wound/Incision: Yes: Dressing Dry and Intact Neurological: Yes: Oriented Psychiatric: Yes: Oriented Labs: CBC, BMP 07/29/16 13:03 07/29/16 13:03 INR, PTT INR 1.29 (0.82-1.09) H 07/26/16 06:25 Problem List - Problems (1) Diabetic foot infection Code(s): E11.69 - TYPE 2 DIABETES MELLITUS WITH OTHER SPECIFIED COMPLICATION L08.9 - LOCAL INFECTION OF THE SKIN AND SUBCUTANEOUS TISSUE, UNSP (2) ESRD (end stage renal disease) Code(s): N18.6 - END STAGE RENAL DISEASE (3) HTN (hypertension) Code(s): I10 - ESSENTIAL (PRIMARY) HYPERTENSION Assessment/Plan Current Medications Generic Name Dose Route Start Last Admin Trade Name Freq PRN Reason Stop Dose Admin Acetaminophen 650 mg 07/25/16 23:23 Tylenol - PO Q6H PRN FEVER Amlodipine Besylate 10 mg 07/26/16 10:00 07/29/16 09:08 Norvasc - PO 10 mg DAILY [facility] Administration Atenolol 50 mg 07/26/16 10:00 07/29/16 09:08 Tenormin - PO 50 mg DAILY [facility] Administration Atorvastatin Calcium 20 mg 07/26/16 22:00 07/28/16 21:58 Lipitor - PO 20 mg HS [facility] Administration Calcitriol 0.25 mcg 07/26/16 22:00 07/29/16 09:07 Rocaltrol - PO 0.25 mcg BID [facility] Administration Calcium Acetate 1,334 mg 07/26/16 17:30 07/29/16 17:32 Phoslo - PO 1,334 mg TIDCM [facility] Administration Calcium Carbonate/Cholecalciferol 2 tab 07/27/16 10:00 07/29/16 09:08 Os-Kaz 500+D - PO 2 tab DAILY [facility] Administration Clindamycin HCl 300 mg 07/27/16 12:00 07/29/16 17:32 Cleocin - PO 300 mg Q6HPO [facility] Administration Collagenase 1 applic 07/27/16 10:00 07/29/16 09:08 Santyl - TP Not Given DAILY [facility] Ferrous Sulfate 325 mg 07/26/16 10:00 07/29/16 09:08 Feosol - PO 325 mg DAILY [facility] Administration Heparin Sodium (Porcine) 5,000 unit 07/26/16 10:00 07/29/16 09:11 Heparin - SQ 5,000 unit BID [facility] Administration Piperacillin Sod/Tazobactam Sod 50 mls @ 100 mls/hr 07/27/16 18:00 07/29/16 17: 32 Zosyn 2.25gm Ivpb (Pre-Docked) IVPB 100 mls/hr Q8H-IV [facility] Administration Protocol Insulin Aspart 1 vial 07/26/16 07:00 07/29/16 17:44 Novolog Vial Sliding Scale - SQ 4 units ACHS [facility] Administration Protocol Morphine Sulfate 2 mg 07/29/16 12:31 07/29/16 16:21 Morphine Injection - IVPUSH 2 mg Q4H PRN Administration PAIN Pantoprazole Sodium 40 mg 07/26/16 10:00 07/29/16 09:07 Protonix 40mg Ivpb (Pre-Docked) IVPB 40 mg DAILY [facility] Administration Polyethylene Glycol 17 gm 07/26/16 17:00 Miralax (For Daily Use) - PO PRN PRN Tamsulosin HCl 0.4 mg 07/26/16 22:00 07/28/16 21:57 Flomax - PO 0.4 mg HS [facility] Administration Impression 1. ESRD 2. Sepsis 3. DFU 4. HTN 5. anemia 6. mild hyponatremia Plan - will arrange for HD in am - cont wound care to leg - discussed with hospitalist - continue epogen - continue to follow cultures - monitor blood pressure - will follow Dr Ponce
[2016-07-29] MEDS: TAMSULOSIN HCL 0.4 MG CAP.ER.24H (FP) PO SCH (22:23)
[2016-07-29] MEDS: ATORVASTATIN CA 20 MG TABLET (FP) PO SCH (22:23)
[2016-07-30 00:08] LABS: HEP B SURFACE AB Reactive (.)
[2016-07-30] MEDS: PIPERACILLIN/TAZOB 2.25 GM 50 ML IVPB SCH ×3 (02:55→17:54)
[2016-07-30] MEDS: CLINDAMYCIN HCL 150 MG CAPSULE (FP) PO SCH ×4 (06:08→17:54)
[2016-07-30] MEDS: INSULIN SLIDING SCALE (NOVOLOG) 1 VIAL SQ SCH ×4 (06:12→21:36)
[2016-07-30 08:22] LABS: BASOPHIL 0.2 % (0-2.0); EOSINOPHIL 6.9 % (0-4.5); MCH 30.8 pg (25.7-33.7); MCHC 32.5 g/dl (32.0-36.0); MEAN CELL VOLUME 94.9 fl (80-96); MEAN PLT VOLUME 8.5 fl (7.5-11.1); NEUTROPHILS 56.8 % (42.8-82.8); PLATELET COUNT 276 K/MM3 (134-434); RDW 15.5 % (11.6-15.6)
[2016-07-30 09:01] LABS: ALBUMIN 1.7 g/dl (3.4-5.0); ANION GAP 9 (8-16); BILIRUBIN,TOTAL 0.3 mg/dL (0.2-1.0); CALCIUM 8.3 mg/dL (8.5-10.1); CO2 28 mmol/L (21-32); CREATININE 6.2 mg/dL (0.55-1.02); GLUCOSE,RANDOM 219 mg/dL (74-106); SGOT/AST 17 U/L (15-37); SGPT/ALT 14 U/L (12-78); TOT PROT 5.7 g/dl (6.4-8.2)
[2016-07-30 09:02] LABS: ALK PHOS 149 U/L (45-117)
[2016-07-30] MEDS: morphine CARPU-JECT 2 MG/1 ML DISP.SYRIN IVPUSH PRN ×2 (09:25→21:37)
[2016-07-30] MEDS: CALCIUM ACETATE 667 MG CAPSULE (FP) PO SCH ×3 (09:26→18:53)
[2016-07-30] MEDS ORDERED: EPOETIN ALFA 10,000 UNIT/1 ML VIAL IVPUSH ONE (11:00)
[2016-07-30] MEDS ORDERED: HEPARIN NA (PORCINE) 5,000 UNITS/ML 1ML VIAL IVPUSH ONE (11:15)
[2016-07-30] MEDS: amLODIPine BESYLATE 10 MG TABLET (FP) PO SCH (11:32)
[2016-07-30] MEDS: ATENOLOL 50 MG TABLET (FP) PO SCH (11:32)
--- NOTE | 2016-07-30 12:16 | CONSULT ---
Consult - text type - Consultation Consultation Note: Podiatry Consultation: 31 year old IDDM F presents for admission for nausea/vomitting for several days duration. Patient is a historically non-compliant diabetic, does admit to poorly controlled glucose. Lifestyle contributory to poor control. S/p I&D of abscess L foot in the past. Has been treated several times for osteomyelitis L foot in the past, has charcot deformity L foot. Patient does not follow up with mt as outpatient, instead goes for follow up at [facility] wound care center. Patient was placed in total contact cast to control weightbearing last week. She currently denies F/V/N/C/SOB/CP. Currently afebrile, VSS. PMHx: IDDM, HTN, HLP, ESRD on HD Meds: noted in chart ALL: [place], bactrim ORAL: L foot: total contact cast removed; yielding plantar lateral Charcot diabetic ulcer, mixed fibrogranular base, hyperkeratotic borders, no probing to bone, no purulence, no fluctuance, no appreciable collection, no ascending cellulitis, no signs of active infection. WBC: 6.0 Blood Cx: no growth x 96 hrs Imp: 31 year old IDDM F with L Charcot deformity and diabetic ulcer 1. Total contact cast removed. No appreciable evidence of acute process. Excisional debridement performed of left foot ulcer to subcutaneous tissue using sterile scissors. 2. Non-WB L foot 3. Rx santyl to left foot ulcer daily 4. No acute intervention at this time. Patient has already decided she will continue follow up with [facility]. Signing off. Thank you for the consult. Jayant Em DPM
--- NOTE | 2016-07-30 13:17 | PN ---
Progress Note, Physician History of Present Illness: Pt seen and examined at bedside. She is awake and alert. She is currently getting HD. - Current Medication List Current Medications: Active Medications Acetaminophen (Tylenol -) 650 mg PO Q6H PRN PRN Reason: FEVER Amlodipine Besylate (Norvasc -) 10 mg PO DAILY [facility] Last Admin: 07/30/16 11:32 Dose: 10 mg Atenolol (Tenormin -) 50 mg PO DAILY [facility] Last Admin: 07/30/16 11:32 Dose: 50 mg Atorvastatin Calcium (Lipitor -) 20 mg PO HS [facility] Last Admin: 07/29/16 22:23 Dose: 20 mg Calcitriol (Rocaltrol -) 0.25 mcg PO BID [facility] Last Admin: 07/29/16 22:24 Dose: 0.25 mcg Calcium Acetate (Phoslo -) 1,334 mg PO TIDCM [facility] Last Admin: 07/30/16 09:26 Dose: 1,334 mg Calcium Carbonate/Cholecalciferol (Os-Kaz 500+D -) 2 tab PO DAILY [facility] Last Admin: 07/29/16 09:08 Dose: 2 tab Clindamycin HCl (Cleocin -) 300 mg PO Q6HPO [facility] Last Admin: 07/30/16 06:08 Dose: 300 mg Collagenase (Santyl -) 1 applic TP DAILY [facility] Ferrous Sulfate (Feosol -) 325 mg PO DAILY [facility] Last Admin: 07/29/16 09:08 Dose: 325 mg Heparin Sodium (Porcine) (Heparin -) 5,000 unit SQ BID [facility] Last Admin: 07/29/16 22:23 Dose: 5,000 unit Piperacillin Sod/Tazobactam Sod (Zosyn 2.25gm Ivpb (Pre-Docked)) 50 mls @ 100 mls/hr IVPB Q8H-IV [facility] PRN Reason: Protocol Last Admin: 07/30/16 02:55 Dose: 100 mls/hr Insulin Aspart (Novolog Vial Sliding Scale -) 1 vial SQ ACHS [facility] PRN Reason: Protocol Last Admin: 07/30/16 11:22 Dose: Not Given Morphine Sulfate (Morphine Injection -) 2 mg IVPUSH Q4H PRN PRN Reason: PAIN Last Admin: 07/30/16 09:25 Dose: 2 mg Pantoprazole Sodium (Protonix 40mg Ivpb (Pre-Docked)) 40 mg IVPB DAILY [facility] Last Admin: 07/29/16 09:07 Dose: 40 mg Polyethylene Glycol (Miralax (For Daily Use) -) 17 gm PO PRN PRN Tamsulosin HCl (Flomax -) 0.4 mg PO HS [facility] Last Admin: 07/29/16 22:23 Dose: 0.4 mg - Objective Vital Signs: Vital Signs Temperature 98.8 F 07/30/16 10:00 Pulse Rate 79 07/30/16 12:15 Respiratory Rate 18 07/30/16 12:15 Blood Pressure 182/105 07/30/16 12:15 O2 Sat by Pulse Oximetry (%) 99 07/30/16 09:00 Constitutional: Yes: Calm Eyes: Yes: Conjunctiva Clear HENT: Yes: Atraumatic Neck: Yes: Supple Cardiovascular: Yes: S1, S2 Respiratory: Yes: CTA Bilaterally Gastrointestinal: Yes: Normal Bowel Sounds, Soft Genitourinary: Yes: WNL Musculoskeletal: Yes: Other (dressing in place) Edema: Yes Edema: LUE: Trace, RUE: Trace Neurological: Yes: Oriented Psychiatric: Yes: Oriented Labs: CBC, BMP 07/30/16 08:00 07/30/16 08:00 INR, PTT INR 1.29 (0.82-1.09) H 07/26/16 06:25 Problem List - Problems (1) Diabetic foot infection Code(s): E11.69 - TYPE 2 DIABETES MELLITUS WITH OTHER SPECIFIED COMPLICATION L08.9 - LOCAL INFECTION OF THE SKIN AND SUBCUTANEOUS TISSUE, UNSP (2) ESRD (end stage renal disease) Code(s): N18.6 - END STAGE RENAL DISEASE (3) HTN (hypertension) Code(s): I10 - ESSENTIAL (PRIMARY) HYPERTENSION Assessment/Plan Current Medications Generic Name Dose Route Start Last Admin Trade Name Freq PRN Reason Stop Dose Admin Acetaminophen 650 mg 07/25/16 23:23 Tylenol - PO Q6H PRN FEVER Amlodipine Besylate 10 mg 07/26/16 10:00 07/30/16 11:32 Norvasc - PO 10 mg DAILY [facility] Administration Atenolol 50 mg 07/26/16 10:00 07/30/16 11:32 Tenormin - PO 50 mg DAILY [facility] Administration Atorvastatin Calcium 20 mg 07/26/16 22:00 07/29/16 22:23 Lipitor - PO 20 mg HS [facility] Administration Calcitriol 0.25 mcg 07/26/16 22:00 07/29/16 22:24 Rocaltrol - PO 0.25 mcg BID [facility] Administration Calcium Acetate 1,334 mg 07/26/16 17:30 07/30/16 09:26 Phoslo - PO 1,334 mg TIDCM [facility] Administration Calcium Carbonate/Cholecalciferol 2 tab 07/27/16 10:00 07/29/16 09:08 Os-Kaz 500+D - PO 2 tab DAILY [facility] Administration Clindamycin HCl 300 mg 07/27/16 12:00 07/30/16 06:08 Cleocin - PO 300 mg Q6HPO [facility] Administration Collagenase 1 applic 07/31/16 10:00 Santyl - TP DAILY [facility] Ferrous Sulfate 325 mg 07/26/16 10:00 07/29/16 09:08 Feosol - PO 325 mg DAILY [facility] Administration Heparin Sodium (Porcine) 5,000 unit 07/26/16 10:00 07/29/16 22:23 Heparin - SQ 5,000 unit BID [facility] Administration Piperacillin Sod/Tazobactam Sod 50 mls @ 100 mls/hr 07/27/16 18:00 07/30/16 02: 55 Zosyn 2.25gm Ivpb (Pre-Docked) IVPB 100 mls/hr Q8H-IV [facility] Administration Protocol Insulin Aspart 1 vial 07/26/16 07:00 07/30/16 11:22 Novolog Vial Sliding Scale - SQ Not Given ACHS [facility] Protocol Morphine Sulfate 2 mg 07/29/16 12:31 07/30/16 09:25 Morphine Injection - IVPUSH 2 mg Q4H PRN Administration PAIN Pantoprazole Sodium 40 mg 07/26/16 10:00 07/29/16 09:07 Protonix 40mg Ivpb (Pre-Docked) IVPB 40 mg DAILY [facility] Administration Polyethylene Glycol 17 gm 07/26/16 17:00 Miralax (For Daily Use) - PO PRN PRN Tamsulosin HCl 0.4 mg 07/26/16 22:00 07/29/16 22:23 Flomax - PO 0.4 mg HS [facility] Administration Impression 1. ESRD 2. Sepsis 3. DFU 4. HTN 5. anemia 6. mild hyponatremia Plan - HD today - wound care to leg - podiatry input appreciated - continue epogen - continue to follow cultures - monitor blood pressure - will follow Dr Ponce
[2016-07-30] MEDS: PANTOPRAZOLE SODIUM 40 MG/100 ML PRE-DOCKED IVPB SCH (14:06)
[2016-07-30] MEDS: CALCITRIOL 0.25 MCG CAPSULE (FP) PO SCH ×2 (14:07→21:36)
[2016-07-30] MEDS: CALCIUM 500MG/VIT-D 200 UNITS COMBO TABLET (FP) PO SCH (14:07)
[2016-07-30] MEDS: HEPARIN NA (PORCINE) 5,000 UNITS/ML 1ML VIAL SQ SCH ×2 (14:07→21:36)
[2016-07-30] MEDS: FERROUS SO4 325 MG TABLET (FP) PO SCH (14:07)
[2016-07-30] MEDS: COLLAGENASE CLOSTRIDIUM HIST. 30 GRAMS TUBE TP SCH (14:30)
--- NOTE | 2016-07-30 14:34 | PN ---
Progress Note, Physician History of Present Illness: patient stable no issues patients cast is removed wound looked at wound is clean with good granulation tissue podiatry note noted - Current Medication List Current Medications: Active Medications Acetaminophen (Tylenol -) 650 mg PO Q6H PRN PRN Reason: FEVER Amlodipine Besylate (Norvasc -) 10 mg PO DAILY [facility] Last Admin: 07/30/16 11:32 Dose: 10 mg Atenolol (Tenormin -) 50 mg PO DAILY [facility] Last Admin: 07/30/16 11:32 Dose: 50 mg Atorvastatin Calcium (Lipitor -) 20 mg PO HS [facility] Last Admin: 07/29/16 22:23 Dose: 20 mg Calcitriol (Rocaltrol -) 0.25 mcg PO BID [facility] Last Admin: 07/30/16 14:07 Dose: 0.25 mcg Calcium Acetate (Phoslo -) 1,334 mg PO TIDCM [facility] Last Admin: 07/30/16 14:07 Dose: Not Given Calcium Carbonate/Cholecalciferol (Os-Kaz 500+D -) 2 tab PO DAILY [facility] Last Admin: 07/30/16 14:07 Dose: 2 tab Clindamycin HCl (Cleocin -) 300 mg PO Q6HPO [facility] Last Admin: 07/30/16 14:07 Dose: 300 mg Collagenase (Santyl -) 1 applic TP DAILY [facility] Ferrous Sulfate (Feosol -) 325 mg PO DAILY [facility] Last Admin: 07/30/16 14:07 Dose: 325 mg Heparin Sodium (Porcine) (Heparin -) 5,000 unit SQ BID [facility] Last Admin: 07/30/16 14:07 Dose: 5,000 unit Piperacillin Sod/Tazobactam Sod (Zosyn 2.25gm Ivpb (Pre-Docked)) 50 mls @ 100 mls/hr IVPB Q8H-IV [facility] PRN Reason: Protocol Last Admin: 07/30/16 14:05 Dose: Not Given Insulin Aspart (Novolog Vial Sliding Scale -) 1 vial SQ ACHS [facility] PRN Reason: Protocol Last Admin: 07/30/16 11:22 Dose: Not Given Morphine Sulfate (Morphine Injection -) 2 mg IVPUSH Q4H PRN PRN Reason: PAIN Last Admin: 07/30/16 09:25 Dose: 2 mg Pantoprazole Sodium (Protonix 40mg Ivpb (Pre-Docked)) 40 mg IVPB DAILY [facility] Last Admin: 07/30/16 14:06 Dose: 40 mg Polyethylene Glycol (Miralax (For Daily Use) -) 17 gm PO PRN PRN Tamsulosin HCl (Flomax -) 0.4 mg PO HS [facility] Last Admin: 07/29/16 22:23 Dose: 0.4 mg - Objective Vital Signs: Vital Signs Temperature 98.8 F 07/30/16 10:00 Pulse Rate 79 07/30/16 13:20 Respiratory Rate 18 07/30/16 13:20 Blood Pressure 180/100 07/30/16 13:20 O2 Sat by Pulse Oximetry (%) 99 07/30/16 09:00 Constitutional: Yes: No Distress, Calm Cardiovascular: Yes: Regular Rate and Rhythm Respiratory: Yes: Regular, CTA Bilaterally Gastrointestinal: Yes: Normal Bowel Sounds, Soft Musculoskeletal: Yes: Other Extremities: Yes: Other Wound/Incision: Yes: Other (dressing removed wound looked at good granulation tissue) Neurological: Yes: Alert, Oriented Psychiatric: Yes: Alert Labs: CBC, BMP 07/30/16 08:00 07/30/16 08:00 INR, PTT INR 1.29 (0.82-1.09) H 07/26/16 06:25 Assessment/Plan sepsis esrd r/o wound infection plan continue current abx will stop iv abx tomorrow continue oral for few more days rest as per primary cx blood negative
--- NOTE | 2016-07-30 15:41 | PN ---
Progress Note (short form) - Note Progress Note: Subjective: The patient was seen and examined at the bedside, she reports left foot pain. Tolerating HD today Current Medications Generic Name Dose Route Start Last Admin Trade Name Bernie PRN Reason Stop Dose Admin Acetaminophen 650 mg 07/25/16 23:23 Tylenol - PO Q6H PRN FEVER Amlodipine Besylate 10 mg 07/26/16 10:00 07/30/16 11:32 Norvasc - PO 10 mg DAILY [facility] Administration Atenolol 50 mg 07/26/16 10:00 07/30/16 11:32 Tenormin - PO 50 mg DAILY [facility] Administration Atorvastatin Calcium 20 mg 07/26/16 22:00 07/29/16 22:23 Lipitor - PO 20 mg HS [facility] Administration Calcitriol 0.25 mcg 07/26/16 22:00 07/30/16 14:07 Rocaltrol - PO 0.25 mcg BID [facility] Administration Calcium Acetate 1,334 mg 07/26/16 17:30 07/30/16 14:07 Phoslo - PO Not Given TIDCM [facility] Calcium Carbonate/Cholecalciferol 2 tab 07/27/16 10:00 07/30/16 14:07 Os-Kaz 500+D - PO 2 tab DAILY [facility] Administration Clindamycin HCl 300 mg 07/27/16 12:00 07/30/16 14:07 Cleocin - PO 300 mg Q6HPO [facility] Administration Collagenase 1 applic 07/31/16 10:00 Santyl - TP DAILY [facility] Ferrous Sulfate 325 mg 07/26/16 10:00 07/30/16 14:07 Feosol - PO 325 mg DAILY [facility] Administration Heparin Sodium (Porcine) 5,000 unit 07/26/16 10:00 07/30/16 14:07 Heparin - SQ 5,000 unit BID [facility] Administration Piperacillin Sod/Tazobactam Sod 50 mls @ 100 mls/hr 07/27/16 18:00 07/30/16 14: 05 Zosyn 2.25gm Ivpb (Pre-Docked) IVPB Not Given Q8H-IV [facility] Protocol Insulin Aspart 1 vial 07/26/16 07:00 07/30/16 11:22 Novolog Vial Sliding Scale - SQ Not Given ACHS [facility] Protocol Morphine Sulfate 2 mg 07/29/16 12:31 07/30/16 09:25 Morphine Injection - IVPUSH 2 mg Q4H PRN Administration PAIN Pantoprazole Sodium 40 mg 07/26/16 10:00 07/30/16 14:06 Protonix 40mg Ivpb (Pre-Docked) IVPB 40 mg DAILY [facility] Administration Polyethylene Glycol 17 gm 07/26/16 17:00 Miralax (For Daily Use) - PO PRN PRN Tamsulosin HCl 0.4 mg 07/26/16 22:00 07/29/16 22:23 Flomax - PO 0.4 mg HS [facility] Administration Objective: Vital Signs Period Temp Pulse Resp BP Sys/Guardado Pulse Ox Last 24 Hr 97.9 F-98.8 F 71-80 18-20 150-197/67-109 97-99 Physical Exam: General: NAD, A&Ox3 HEENT: B/l strabismus Lungs: CTA bilaterally. Right chest wall permacath Heart: RRR, S1S2 Abd: Soft, non-tender, non-distended. Normoactive bowel sounds Ext: Left foot cast to distal knee. Warm extremity CBCD WBC 6.0 K/mm3 (4.0-10.0) 07/30/16 08:00 RBC 2.58 M/mm3 (3.60-5.2) L 07/30/16 08:00 Hgb 7.9 GM/dL (10.7-15.3) L D 07/30/16 08:00 Hct 24.5 % (32.4-45.2) L 07/30/16 08:00 MCV 94.9 fl (80-96) 07/30/16 08:00 MCHC 32.5 g/dl (32.0-36.0) 07/30/16 08:00 RDW 15.5 % (11.6-15.6) 07/30/16 08:00 Plt Count 276 K/MM3 (134-434) 07/30/16 08:00 MPV 8.5 fl (7.5-11.1) 07/30/16 08:00 CMP Sodium 133 mmol/L (136-145) L 07/30/16 08:00 Potassium 3.6 mmol/L (3.5-5.1) 07/30/16 08:00 Chloride 96 mmol/L (98-107) L 07/30/16 08:00 Carbon Dioxide 28 mmol/L (21-32) 07/30/16 08:00 Anion Gap 9 (8-16) 07/30/16 08:00 BUN 19 mg/dL (7-18) H D 07/30/16 08:00 Creatinine 6.2 mg/dL (0.55-1.02) H D 07/30/16 08:00 Creat Clearance w eGFR 7.93 (>60) 07/30/16 08:00 Random Glucose 219 mg/dL (74-106) H 07/30/16 08:00 Calcium 8.3 mg/dL (8.5-10.1) L 07/30/16 08:00 Total Bilirubin 0.3 mg/dL (0.2-1.0) 07/30/16 08:00 AST 17 U/L (15-37) 07/30/16 08:00 ALT 14 U/L (12-78) 07/30/16 08:00 Alkaline Phosphatase 149 U/L (45-117) H 07/30/16 08:00 Total Protein 5.7 g/dl (6.4-8.2) L 07/30/16 08:00 Albumin 1.7 g/dl (3.4-5.0) L 07/30/16 08:00 CARDIAC ENZYMES Creatine Kinase 229 IU/L (26-192) H D 07/25/16 21:15 Troponin I 0.03 ng/ml (0.00-0.05) 07/26/16 06:25 Microbiology 07/25/16 16:38 Blood - Peripheral Venous Blood Culture - Preliminary NO GROWTH OBTAINED AFTER 96 HOURS, INCUBATION TO CONTINUE FOR 1 DAYS. 07/25/16 16:38 Blood - Peripheral Venous Blood Culture - Preliminary NO GROWTH OBTAINED AFTER 96 HOURS, INCUBATION TO CONTINUE FOR 1 DAYS. 07/27/16 15:45 Urine - Urine Clean Catch Urine Culture - Final NO GROWTH OBTAINED Assessment: This is a 31 year old female with PMHx of IDDM, charcot foot, ESRD ( HD M,W,F), left foot osteomyelitis, b/l retinopathy HTN, hyperlipidemia, GERD, who presented to the ED with chills, nausea, vomiting and sent from [facility] dialysis for vomiting and fever. Plan: 1) ID: Sepsis 2/2 osteomyelitis vs. shiley catheter vs UTI - Blood cultures NGTD - Urine culture with NGTD - Chest X-ray with cardiomegaly, no acute infiltrates or pleural effusions - Continue Clindamycin - Continue Zosyn - Pain management - Appreciate podiatry consult, leeyl daily, no evidence of acute process after cast removed from left foot - Appreciate ID consult 2) : ESRD on HD - Continue with scheduled HD (M,W,F) - Appreciate nephrology consult 3) Cardiology: HTN - Continue Atenolol - Continue Norvasc Hyperlipidemia: - Continue Lipitor 4) GI: GERD - Continue Protonix 5) F/E/N: - Renal, diabetic diet - Monitor electrolytes 6) Prophylaxis: - Heparin 5,000u sq bid - PT consult 7) Dispo: - Requires continued inpatient care CODE STATUS: FULL CODE Visit type - Emergency Visit Emergency Visit: Yes ED Registration Date: 07/25/16 Care time: The patient presented to the Emergency Department on the above date and was hospitalized for further evaluation of their emergent condition. - New Patient This patient is new to me today: No - Critical Care Critical Care patient: No
[2016-07-30] MEDS ORDERED: INSULIN (NOVOLOG) ASPART 100 UNITS/ML 10ML VIAL ONE (17:03)
[2016-07-30] MEDS: TAMSULOSIN HCL 0.4 MG CAP.ER.24H (FP) PO SCH (21:35)
[2016-07-30] MEDS: ATORVASTATIN CA 20 MG TABLET (FP) PO SCH (21:36)
[2016-07-31] MEDS: PIPERACILLIN/TAZOB 2.25 GM 50 ML IVPB SCH ×2 (02:14→09:28)
[2016-07-31] MEDS: CLINDAMYCIN HCL 150 MG CAPSULE (FP) PO SCH ×4 (06:28→17:06)
[2016-07-31] MEDS: INSULIN SLIDING SCALE (NOVOLOG) 1 VIAL SQ SCH ×4 (06:28→21:40)
[2016-07-31 08:15] LABS: MCH 31.2 pg (25.7-33.7); MCHC 32.8 g/dl (32.0-36.0); MEAN CELL VOLUME 95.1 fl (80-96); MEAN PLT VOLUME 8.9 fl (7.5-11.1); PLATELET COUNT 307 K/MM3 (134-434); RDW 15.8 % (11.6-15.6); WHITE BLOOD COUNT 7.1 K/mm3 (4.0-10.0)
[2016-07-31] MEDS: CALCIUM ACETATE 667 MG CAPSULE (FP) PO SCH ×3 (08:30→17:06)
[2016-07-31] MEDS: hydrALAZINE HCL 10 MG TABLET PO SCH ×3 (08:30→21:39)
[2016-07-31] MEDS: morphine CARPU-JECT 2 MG/1 ML DISP.SYRIN IVPUSH PRN ×3 (08:39→22:06)
[2016-07-31] MEDS ORDERED: PT OWN MED DRAWER 7, Y5N ONE ×5 (08:45→20:47)
[2016-07-31 08:47] LABS: ALBUMIN 1.7 g/dl (3.4-5.0); ALK PHOS 143 U/L (45-117); ANION GAP 10 (8-16); BILIRUBIN,TOTAL 0.4 mg/dL (0.2-1.0); CALCIUM 8.8 mg/dL (8.5-10.1); CO2 28 mmol/L (21-32); CREATININE 4.6 mg/dL (0.55-1.02); GLUCOSE,RANDOM 212 mg/dL (74-106); SGOT/AST 17 U/L (15-37); SGPT/ALT 15 U/L (12-78); TOT PROT 5.8 g/dl (6.4-8.2)
[2016-07-31] MEDS: CALCITRIOL 0.25 MCG CAPSULE (FP) PO SCH ×2 (09:28→21:39)
[2016-07-31] MEDS: FERROUS SO4 325 MG TABLET (FP) PO SCH (09:28)
[2016-07-31] MEDS: PANTOPRAZOLE 40 MG TABLET (FP) PO SCH (09:28)
[2016-07-31] MEDS: amLODIPine BESYLATE 10 MG TABLET (FP) PO SCH (09:28)
[2016-07-31] MEDS: CALCIUM 500MG/VIT-D 200 UNITS COMBO TABLET (FP) PO SCH (09:28)
[2016-07-31] MEDS: HEPARIN NA (PORCINE) 5,000 UNITS/ML 1ML VIAL SQ SCH ×2 (09:28→21:39)
[2016-07-31] MEDS: ATENOLOL 50 MG TABLET (FP) PO SCH (09:28)
[2016-07-31] MEDS ORDERED: diphenhydrAMINE HCL 25 MG CAPSULE (FP) PO ONE (09:30)
--- NOTE | 2016-07-31 09:30 | PN ---
Progress Note (short form) - Note Progress Note: Subjective: The patient was seen and examined at the bedside, she has complaints of itching, no evidence of rash/hives. She is reporting 4 bouts of foul smelling diarrhea since this AM Current Medications Generic Name Dose Route Start Last Admin Trade Name Bernie PRN Reason Stop Dose Admin Acetaminophen 650 mg 07/25/16 23:23 Tylenol - PO Q6H PRN FEVER Amlodipine Besylate 10 mg 07/26/16 10:00 07/31/16 09:28 Norvasc - PO 10 mg DAILY [facility] Administration Atenolol 50 mg 07/26/16 10:00 07/31/16 09:28 Tenormin - PO 50 mg DAILY [facility] Administration Atorvastatin Calcium 20 mg 07/26/16 22:00 07/30/16 21:36 Lipitor - PO 20 mg HS [facility] Administration Calcitriol 0.25 mcg 07/26/16 22:00 07/31/16 09:28 Rocaltrol - PO 0.25 mcg BID [facility] Administration Calcium Acetate 1,334 mg 07/26/16 17:30 07/31/16 08:30 Phoslo - PO 1,334 mg TIDCM [facility] Administration Calcium Carbonate/Cholecalciferol 2 tab 07/27/16 10:00 07/31/16 09:28 Os-Kaz 500+D - PO 2 tab DAILY [facility] Administration Clindamycin HCl 300 mg 07/27/16 12:00 07/31/16 06:28 Cleocin - PO 300 mg Q6HPO [facility] Administration Collagenase 1 applic 07/31/16 10:00 Santyl - TP DAILY [facility] Diphenhydramine HCl 25 mg 07/31/16 09:30 Benadryl - PO 07/31/16 09:31 ONCE ONE Ferrous Sulfate 325 mg 07/26/16 10:00 07/31/16 09:28 Feosol - PO 325 mg DAILY [facility] Administration Heparin Sodium (Porcine) 5,000 unit 07/26/16 10:00 07/31/16 09:28 Heparin - SQ 5,000 unit BID [facility] Administration Hydralazine HCl 10 mg 07/31/16 07:45 07/31/16 08:30 Apresoline - PO 10 mg TID [facility] Administration Piperacillin Sod/Tazobactam Sod 50 mls @ 100 mls/hr 07/27/16 18:00 07/31/16 09: 28 Zosyn 2.25gm Ivpb (Pre-Docked) IVPB 100 mls/hr Q8H-IV [facility] Administration Protocol Insulin Aspart 1 vial 07/26/16 07:00 07/31/16 06:28 Novolog Vial Sliding Scale - SQ 4 units ACHS [facility] Administration Protocol Morphine Sulfate 2 mg 07/29/16 12:31 07/31/16 08:39 Morphine Injection - IVPUSH 2 mg Q4H PRN Administration PAIN Pantoprazole Sodium 40 mg 07/31/16 10:00 07/31/16 09:28 Protonix - PO 40 mg DAILY [facility] Administration Polyethylene Glycol 17 gm 07/26/16 17:00 Miralax (For Daily Use) - PO PRN PRN Tamsulosin HCl 0.4 mg 07/26/16 22:00 07/30/16 21:35 Flomax - PO 0.4 mg HS [facility] Administration Objective: Vital Signs Period Temp Pulse Resp BP Sys/Guardado Pulse Ox Last 24 Hr 98.1 F-99.6 F 71-83 16-18 165-197/78-109 99 Physical Exam: General: NAD, A&Ox3 HEENT: B/l strabismus Lungs: CTA bilaterally. Right chest wall permacath Heart: RRR, S1S2 Abd: Soft, non-tender, non-distended. Normoactive bowel sounds Ext: Left foot cast to distal knee. Warm extremity CBCD WBC 7.1 K/mm3 (4.0-10.0) 07/31/16 07:00 RBC 2.79 M/mm3 (3.60-5.2) L 07/31/16 07:00 Hgb 8.7 GM/dL (10.7-15.3) L D 07/31/16 07:00 Hct 26.6 % (32.4-45.2) L 07/31/16 07:00 MCV 95.1 fl (80-96) 07/31/16 07:00 MCHC 32.8 g/dl (32.0-36.0) 07/31/16 07:00 RDW 15.8 % (11.6-15.6) H 07/31/16 07:00 Plt Count 307 K/MM3 (134-434) 07/31/16 07:00 MPV 8.9 fl (7.5-11.1) 07/31/16 07:00 CMP Sodium 136 mmol/L (136-145) 07/31/16 07:00 Potassium 3.8 mmol/L (3.5-5.1) 07/31/16 07:00 Chloride 98 mmol/L (98-107) 07/31/16 07:00 Carbon Dioxide 28 mmol/L (21-32) 07/31/16 07:00 Anion Gap 10 (8-16) 07/31/16 07:00 BUN 11 mg/dL (7-18) D 07/31/16 07:00 Creatinine 4.6 mg/dL (0.55-1.02) H D 07/31/16 07:00 Creat Clearance w eGFR 11.19 (>60) 07/31/16 07:00 Random Glucose 212 mg/dL (74-106) H 07/31/16 07:00 Calcium 8.8 mg/dL (8.5-10.1) 07/31/16 07:00 Total Bilirubin 0.4 mg/dL (0.2-1.0) D 07/31/16 07:00 AST 17 U/L (15-37) 07/31/16 07:00 ALT 15 U/L (12-78) 07/31/16 07:00 Alkaline Phosphatase 143 U/L (45-117) H 07/31/16 07:00 Total Protein 5.8 g/dl (6.4-8.2) L 07/31/16 07:00 Albumin 1.7 g/dl (3.4-5.0) L 07/31/16 07:00 CARDIAC ENZYMES Creatine Kinase 229 IU/L (26-192) H D 07/25/16 21:15 Troponin I 0.03 ng/ml (0.00-0.05) 07/26/16 06:25 Microbiology 07/25/16 16:38 Blood - Peripheral Venous Blood Culture - Final NO GROWTH AFTER 5 DAYS INCUBATION 07/25/16 16:38 Blood - Peripheral Venous Blood Culture - Final NO GROWTH AFTER 5 DAYS INCUBATION 07/27/16 15:45 Urine - Urine Clean Catch Urine Culture - Final NO GROWTH OBTAINED Imaging: - Chest X-ray with cardiomegaly, no acute infiltrates or pleural effusions Assessment: This is a 31 year old female with PMHx of IDDM, charcot foot, ESRD ( HD M,W,F), left foot osteomyelitis, b/l retinopathy HTN, hyperlipidemia, GERD, who presented to the ED with chills, nausea, vomiting and sent from [facility] dialysis for vomiting and fever. Plan: 1) ID: Sepsis 2/2 osteomyelitis vs. shiley catheter vs UTI - No clear source of infection, all cultures negative - Cast removed and per podiatry no evidence of acute process on left foot plantar wound (debridement at bedside) - Continue Clindamycin - Continue Zosyn - Pain management - Appreciate podiatry consult, santyl daily - Appreciate ID consult 2) : ESRD on HD - Continue with scheduled HD (M,W,) - Tolerated HD yesterday - Appreciate nephrology consult 3) Cardiology: HTN - Continue Atenolol - Continue Norvasc - Added Hydralazine 10mg po tid Hyperlipidemia: - Continue Lipitor 4) GI: Foul smelling diarrhea - F/u c.diff - F/u stool studies GERD - Continue Protonix 5) F/E/N: - Renal, diabetic diet - Monitor electrolytes 6) Prophylaxis: - Heparin 5,000u sq bid - PT consult 7) Dispo: - Requires continued inpatient care CODE STATUS: FULL CODE Visit type - Emergency Visit Emergency Visit: Yes ED Registration Date: 07/25/16 Care time: The patient presented to the Emergency Department on the above date and was hospitalized for further evaluation of their emergent condition. - New Patient This patient is new to me today: No - Critical Care Critical Care patient: No
--- NOTE | 2016-07-31 14:01 | PN ---
Progress Note, Physician History of Present Illness: patient stable no new issues - Current Medication List Current Medications: Active Medications Acetaminophen (Tylenol -) 650 mg PO Q6H PRN PRN Reason: FEVER Amlodipine Besylate (Norvasc -) 10 mg PO DAILY [facility] Last Admin: 07/31/16 09:28 Dose: 10 mg Atenolol (Tenormin -) 50 mg PO DAILY [facility] Last Admin: 07/31/16 09:28 Dose: 50 mg Atorvastatin Calcium (Lipitor -) 20 mg PO HS [facility] Last Admin: 07/30/16 21:36 Dose: 20 mg Calcitriol (Rocaltrol -) 0.25 mcg PO BID [facility] Last Admin: 07/31/16 09:28 Dose: 0.25 mcg Calcium Acetate (Phoslo -) 1,334 mg PO TIDCM [facility] Last Admin: 07/31/16 12:45 Dose: 1,334 mg Calcium Carbonate/Cholecalciferol (Os-Kaz 500+D -) 2 tab PO DAILY [facility] Last Admin: 07/31/16 09:28 Dose: 2 tab Clindamycin HCl (Cleocin -) 300 mg PO Q6HPO [facility] Last Admin: 07/31/16 12:43 Dose: 300 mg Collagenase (Santyl -) 1 applic TP DAILY [facility] Ferrous Sulfate (Feosol -) 325 mg PO DAILY [facility] Last Admin: 07/31/16 09:28 Dose: 325 mg Heparin Sodium (Porcine) (Heparin -) 5,000 unit SQ BID [facility] Last Admin: 07/31/16 09:28 Dose: 5,000 unit Hydralazine HCl (Apresoline -) 10 mg PO TID [facility] Last Admin: 07/31/16 08:30 Dose: 10 mg Piperacillin Sod/Tazobactam Sod (Zosyn 2.25gm Ivpb (Pre-Docked)) 50 mls @ 100 mls/hr IVPB Q8H-IV [facility] PRN Reason: Protocol Last Admin: 07/31/16 09:28 Dose: 100 mls/hr Insulin Aspart (Novolog Vial Sliding Scale -) 1 vial SQ ACHS [facility] PRN Reason: Protocol Last Admin: 07/31/16 12:27 Dose: 4 units Morphine Sulfate (Morphine Injection -) 2 mg IVPUSH Q4H PRN PRN Reason: PAIN Last Admin: 07/31/16 08:39 Dose: 2 mg Pantoprazole Sodium (Protonix -) 40 mg PO DAILY [facility] Last Admin: 07/31/16 09:28 Dose: 40 mg Polyethylene Glycol (Miralax (For Daily Use) -) 17 gm PO PRN PRN Tamsulosin HCl (Flomax -) 0.4 mg PO HS [facility] Last Admin: 07/30/16 21:35 Dose: 0.4 mg - Objective Vital Signs: Vital Signs Temperature 99.6 F 07/31/16 08:49 Pulse Rate 74 07/31/16 08:49 Respiratory Rate 18 07/31/16 08:49 Blood Pressure 170/85 07/31/16 08:49 O2 Sat by Pulse Oximetry (%) 99 07/31/16 09:00 Constitutional: Yes: No Distress, Calm HENT: Yes: Atraumatic Neck: Yes: Supple, Trachea Midline Cardiovascular: Yes: Regular Rate and Rhythm Respiratory: Yes: Regular, CTA Bilaterally Gastrointestinal: Yes: Normal Bowel Sounds, Soft Musculoskeletal: Yes: Other Extremities: Yes: Other Neurological: Yes: Alert, Oriented Psychiatric: Yes: Alert Labs: CBC, BMP 07/31/16 07:00 07/31/16 07:00 INR, PTT INR 1.29 (0.82-1.09) H 07/26/16 06:25 Assessment/Plan sepsis esrd r/o wound infection spoke with podiatry wound was clean in the beginning also no slough was noted all cx are negative plan will stop all abx and watch rest as per primary
[2016-07-31] MEDS: COLLAGENASE CLOSTRIDIUM HIST. 30 GRAMS TUBE TP SCH (15:07)
[2016-07-31] MEDS ORDERED: INSULIN (NOVOLOG) ASPART 100 UNITS/ML 10ML VIAL ONE (17:02)
--- NOTE | 2016-07-31 18:51 | PN ---
Progress Note, Physician History of Present Illness: Pt seen and examined at bedside. She is awake and alert. She denies shortness of breath. - Current Medication List Current Medications: Active Medications Acetaminophen (Tylenol -) 650 mg PO Q6H PRN PRN Reason: FEVER Amlodipine Besylate (Norvasc -) 10 mg PO DAILY [facility] Last Admin: 07/31/16 09:28 Dose: 10 mg Atenolol (Tenormin -) 50 mg PO DAILY [facility] Last Admin: 07/31/16 09:28 Dose: 50 mg Atorvastatin Calcium (Lipitor -) 20 mg PO HS [facility] Last Admin: 07/30/16 21:36 Dose: 20 mg Calcitriol (Rocaltrol -) 0.25 mcg PO BID [facility] Last Admin: 07/31/16 09:28 Dose: 0.25 mcg Calcium Acetate (Phoslo -) 1,334 mg PO TIDCM [facility] Last Admin: 07/31/16 17:06 Dose: 1,334 mg Calcium Carbonate/Cholecalciferol (Os-Kaz 500+D -) 2 tab PO DAILY [facility] Last Admin: 07/31/16 09:28 Dose: 2 tab Clindamycin HCl (Cleocin -) 300 mg PO Q6HPO [facility] Last Admin: 07/31/16 17:06 Dose: 300 mg Collagenase (Santyl -) 1 applic TP DAILY [facility] Last Admin: 07/31/16 15:07 Dose: 1 applic Ferrous Sulfate (Feosol -) 325 mg PO DAILY [facility] Last Admin: 07/31/16 09:28 Dose: 325 mg Heparin Sodium (Porcine) (Heparin -) 5,000 unit SQ BID [facility] Last Admin: 07/31/16 09:28 Dose: 5,000 unit Hydralazine HCl (Apresoline -) 10 mg PO TID [facility] Last Admin: 07/31/16 15:08 Dose: 10 mg Insulin Aspart (Novolog Vial Sliding Scale -) 1 vial SQ ACHS [facility] PRN Reason: Protocol Last Admin: 07/31/16 17:07 Dose: 6 units Morphine Sulfate (Morphine Injection -) 2 mg IVPUSH Q4H PRN PRN Reason: PAIN Last Admin: 07/31/16 15:07 Dose: 2 mg Pantoprazole Sodium (Protonix -) 40 mg PO DAILY [facility] Last Admin: 07/31/16 09:28 Dose: 40 mg Polyethylene Glycol (Miralax (For Daily Use) -) 17 gm PO PRN PRN Tamsulosin HCl (Flomax -) 0.4 mg PO HS [facility] Last Admin: 07/30/16 21:35 Dose: 0.4 mg - Objective Vital Signs: Vital Signs Temperature 98.0 F 07/31/16 16:50 Pulse Rate 75 07/31/16 16:50 Respiratory Rate 18 07/31/16 16:50 Blood Pressure 158/78 07/31/16 16:50 O2 Sat by Pulse Oximetry (%) 99 07/31/16 09:00 Constitutional: Yes: Calm Eyes: Yes: Conjunctiva Clear HENT: Yes: Atraumatic Neck: Yes: Supple Cardiovascular: Yes: S1, S2 Respiratory: Yes: CTA Bilaterally Gastrointestinal: Yes: Soft, Abdomen, Obese Edema: Yes Edema: LLE: Trace, RLE: Trace Wound/Incision: Yes: Dressing Dry and Intact Neurological: Yes: Oriented Psychiatric: Yes: Oriented Labs: CBC, BMP 07/31/16 07:00 07/31/16 07:00 INR, PTT INR 1.29 (0.82-1.09) H 07/26/16 06:25 Problem List - Problems (1) Diabetic foot infection Code(s): E11.69 - TYPE 2 DIABETES MELLITUS WITH OTHER SPECIFIED COMPLICATION L08.9 - LOCAL INFECTION OF THE SKIN AND SUBCUTANEOUS TISSUE, UNSP (2) ESRD (end stage renal disease) Code(s): N18.6 - END STAGE RENAL DISEASE (3) HTN (hypertension) Code(s): I10 - ESSENTIAL (PRIMARY) HYPERTENSION Assessment/Plan Current Medications Generic Name Dose Route Start Last Admin Trade Name Dallasq PRN Reason Stop Dose Admin Acetaminophen 650 mg 07/25/16 23:23 Tylenol - PO Q6H PRN FEVER Amlodipine Besylate 10 mg 07/26/16 10:00 07/31/16 09:28 Norvasc - PO 10 mg DAILY [facility] Administration Atenolol 50 mg 07/26/16 10:00 07/31/16 09:28 Tenormin - PO 50 mg DAILY [facility] Administration Atorvastatin Calcium 20 mg 07/26/16 22:00 07/30/16 21:36 Lipitor - PO 20 mg HS [facility] Administration Calcitriol 0.25 mcg 07/26/16 22:00 07/31/16 09:28 Rocaltrol - PO 0.25 mcg BID [facility] Administration Calcium Acetate 1,334 mg 07/26/16 17:30 07/31/16 17:06 Phoslo - PO 1,334 mg TIDCM [facility] Administration Calcium Carbonate/Cholecalciferol 2 tab 07/27/16 10:00 07/31/16 09:28 Os-Kaz 500+D - PO 2 tab DAILY [facility] Administration Clindamycin HCl 300 mg 07/27/16 12:00 07/31/16 17:06 Cleocin - PO 300 mg Q6HPO [facility] Administration Collagenase 1 applic 07/31/16 10:00 07/31/16 15:07 Santyl - TP 1 applic DAILY [facility] Administration Ferrous Sulfate 325 mg 07/26/16 10:00 07/31/16 09:28 Feosol - PO 325 mg DAILY [facility] Administration Heparin Sodium (Porcine) 5,000 unit 07/26/16 10:00 07/31/16 09:28 Heparin - SQ 5,000 unit BID [facility] Administration Hydralazine HCl 10 mg 07/31/16 07:45 07/31/16 15:08 Apresoline - PO 10 mg TID [facility] Administration Insulin Aspart 1 vial 07/26/16 07:00 07/31/16 17:07 Novolog Vial Sliding Scale - SQ 6 units ACHS [facility] Administration Protocol Morphine Sulfate 2 mg 07/29/16 12:31 07/31/16 15:07 Morphine Injection - IVPUSH 2 mg Q4H PRN Administration PAIN Pantoprazole Sodium 40 mg 07/31/16 10:00 07/31/16 09:28 Protonix - PO 40 mg DAILY [facility] Administration Polyethylene Glycol 17 gm 07/26/16 17:00 Miralax (For Daily Use) - PO PRN PRN Tamsulosin HCl 0.4 mg 07/26/16 22:00 07/30/16 21:35 Flomax - PO 0.4 mg HS [facility] Administration Impression 1. ESRD 2. Sepsis 3. DFU 4. HTN 5. anemia 6. mild hyponatremia Plan - pt for HD in am - wound care to leg - continue epogen for anemia - continue to follow cultures - sodium has stabilized - will follow Dr Ponce
[2016-07-31] MEDS: TAMSULOSIN HCL 0.4 MG CAP.ER.24H (FP) PO SCH (21:39)
[2016-07-31] MEDS: ATORVASTATIN CA 20 MG TABLET (FP) PO SCH (21:39)
[2016-08-01] MEDS: CLINDAMYCIN HCL 150 MG CAPSULE (FP) PO SCH ×3 (00:03→12:18)
[2016-08-01] MEDS: hydrALAZINE HCL 10 MG TABLET PO SCH ×4 (06:21→22:43)
[2016-08-01] MEDS: INSULIN SLIDING SCALE (NOVOLOG) 1 VIAL SQ SCH ×4 (06:22→22:44)
[2016-08-01] MEDS ORDERED: HEPARIN NA (PORCINE) 5,000 UNITS/ML 1ML VIAL IVPUSH ONE (08:30)
[2016-08-01] MEDS ORDERED: EPOETIN ALFA 10,000 UNIT/1 ML VIAL IVPUSH ONE (08:30)
[2016-08-01 08:35] LABS: MCH 30.3 pg (25.7-33.7); MCHC 31.9 g/dl (32.0-36.0); MEAN CELL VOLUME 95.2 fl (80-96); MEAN PLT VOLUME 8.5 fl (7.5-11.1); PLATELET COUNT 286 K/MM3 (134-434); RDW 15.8 % (11.6-15.6); WHITE BLOOD COUNT 7.2 K/mm3 (4.0-10.0)
--- NOTE | 2016-08-01 09:41 | PN ---
Progress Note (short form) - Note Progress Note: Subjective: The patient was seen in dialysis. She states diarrhea x4. She states she is upset that her cast was removed and now she will have to wait until thursday to see Dr. Crews to have it replaced. Informed the patient that we had to rule out her wound on her foot as an infectious source. HD today Stool cultures sent yesterday but not c.diff (called micro, cannot add on), informed RN we need c.diff collected Current Medications Generic Name Dose Route Start Last Admin Trade Name Freq PRN Reason Stop Dose Admin Acetaminophen 650 mg 07/25/16 23:23 Tylenol - PO Q6H PRN FEVER Amlodipine Besylate 10 mg 07/26/16 10:00 07/31/16 09:28 Norvasc - PO 10 mg DAILY [facility] Administration Atenolol 50 mg 07/26/16 10:00 07/31/16 09:28 Tenormin - PO 50 mg DAILY [facility] Administration Atorvastatin Calcium 20 mg 07/26/16 22:00 07/31/16 21:39 Lipitor - PO 20 mg HS [facility]INA Administration Calcitriol 0.25 mcg 07/26/16 22:00 07/31/16 21:39 Rocaltrol - PO 0.25 mcg BID R[facility] Administration Calcium Acetate 1,334 mg 07/26/16 17:30 07/31/16 17:06 Phoslo - PO 1,334 mg TIDCM R[facility]INA Administration Calcium Carbonate/Cholecalciferol 2 tab 07/27/16 10:00 07/31/16 09:28 Os-Kaz 500+D - PO 2 tab DAILY [facility] Administration Clindamycin HCl 300 mg 07/27/16 12:00 08/01/16 06:21 Cleocin - PO 300 mg Q6HPO R[facility] Administration Collagenase 1 applic 07/31/16 10:00 07/31/16 15:07 Santyl - TP 1 applic DAILY R[facility]INA Administration Ferrous Sulfate 325 mg 07/26/16 10:00 07/31/16 09:28 Feosol - PO 325 mg DAILY R[facility] Administration Heparin Sodium (Porcine) 5,000 unit 07/26/16 10:00 07/31/16 21:39 Heparin - SQ 5,000 unit BID [facility] Administration Hydralazine HCl 10 mg 07/31/16 07:45 08/01/16 06:21 Apresoline - PO 10 mg TID R[facility] Administration Insulin Aspart 1 vial 07/26/16 07:00 08/01/16 06:22 Novolog Vial Sliding Scale - SQ 6 units ACHS R[facility]INA Administration Protocol Morphine Sulfate 2 mg 07/29/16 12:31 07/31/16 22:06 Morphine Injection - IVPUSH 2 mg Q4H PRN Administration PAIN Pantoprazole Sodium 40 mg 07/31/16 10:00 07/31/16 09:28 Protonix - PO 40 mg DAILY [facility] Administration Polyethylene Glycol 17 gm 07/26/16 17:00 Miralax (For Daily Use) - PO PRN PRN Tamsulosin HCl 0.4 mg 07/26/16 22:00 07/31/16 21:39 Flomax - PO 0.4 mg HS R[facility]INA Administration Objective: Vital Signs Period Temp Pulse Resp BP Sys/Guardado Pulse Ox Last 24 Hr 97.8 F-98.4 F 74-79 16-18 137-175/70-87 99 Physical Exam: General: NAD, A&Ox3 HEENT: B/l strabismus Lungs: CTA bilaterally Heart: RRR, S1S2 Abd: Soft, non-tender, non-distended. Normoactive bowel sounds Ext: Left foot cast to distal knee. Warm extremity CBCD WBC 7.2 K/mm3 (4.0-10.0) 08/01/16 08:11 RBC 2.65 M/mm3 (3.60-5.2) L 08/01/16 08:11 Hgb 8.0 GM/dL (10.7-15.3) L 08/01/16 08:11 Hct 25.2 % (32.4-45.2) L 08/01/16 08:11 MCV 95.2 fl (80-96) 08/01/16 08:11 MCHC 31.9 g/dl (32.0-36.0) L 08/01/16 08:11 RDW 15.8 % (11.6-15.6) H 08/01/16 08:11 Plt Count 286 K/MM3 (134-434) 08/01/16 08:11 MPV 8.5 fl (7.5-11.1) 08/01/16 08:11 CMP Sodium 136 mmol/L (136-145) 07/31/16 07:00 Potassium 3.8 mmol/L (3.5-5.1) 07/31/16 07:00 Chloride 98 mmol/L (98-107) 07/31/16 07:00 Carbon Dioxide 28 mmol/L (21-32) 07/31/16 07:00 Anion Gap 10 (8-16) 07/31/16 07:00 BUN 11 mg/dL (7-18) D 07/31/16 07:00 Creatinine 4.6 mg/dL (0.55-1.02) H D 07/31/16 07:00 Creat Clearance w eGFR 11.19 (>60) 07/31/16 07:00 Random Glucose 212 mg/dL (74-106) H 07/31/16 07:00 Calcium 8.8 mg/dL (8.5-10.1) 07/31/16 07:00 Total Bilirubin 0.4 mg/dL (0.2-1.0) D 07/31/16 07:00 AST 17 U/L (15-37) 07/31/16 07:00 ALT 15 U/L (12-78) 07/31/16 07:00 Alkaline Phosphatase 143 U/L (45-117) H 07/31/16 07:00 Total Protein 5.8 g/dl (6.4-8.2) L 07/31/16 07:00 Albumin 1.7 g/dl (3.4-5.0) L 07/31/16 07:00 CARDIAC ENZYMES Creatine Kinase 229 IU/L (26-192) H D 07/25/16 21:15 Troponin I 0.03 ng/ml (0.00-0.05) 07/26/16 06:25 Microbiology 07/25/16 16:38 Blood - Peripheral Venous Blood Culture - Final NO GROWTH AFTER 5 DAYS INCUBATION 07/25/16 16:38 Blood - Peripheral Venous Blood Culture - Final NO GROWTH AFTER 5 DAYS INCUBATION 07/27/16 15:45 Urine - Urine Clean Catch Urine Culture - Final NO GROWTH OBTAINED Imaging: - Chest X-ray with cardiomegaly, no acute infiltrates or pleural effusions Assessment: This is a 31 year old female with PMHx of IDDM, charcot foot, ESRD ( HD M,W,F), left foot osteomyelitis, b/l retinopathy HTN, hyperlipidemia, GERD, who presented to the ED with chills, nausea, vomiting and sent from [facility] dialysis for vomiting and fever. Plan: 1) ID: Sepsis 2/2 osteomyelitis vs. shiley catheter vs UTI - No clear source of infection, all cultures negative - Cast removed and per podiatry no evidence of acute process on left foot plantar wound (debridement at bedside) - Abx discontinued yesterday - Pain management - Appreciate podiatry consult, santyl daily - Appreciate ID consult 2) : ESRD on HD - Continue with scheduled HD (M,W,F) - Tolerated HD yesterday - Appreciate nephrology consult 3) Cardiology: HTN - Continue Atenolol - Continue Norvasc - Added Hydralazine 10mg po tid Hyperlipidemia: - Continue Lipitor 4) GI: Foul smelling diarrhea - F/u c.diff - F/u stool studies GERD - Continue Protonix 5) F/E/N: - Renal, diabetic diet - Monitor electrolytes 6) Prophylaxis: - Heparin 5,000u sq bid - PT consult 7) Dispo: - Requires continued inpatient care CODE STATUS: FULL CODE Visit type - Emergency Visit Emergency Visit: Yes ED Registration Date: 07/25/16 Care time: The patient presented to the Emergency Department on the above date and was hospitalized for further evaluation of their emergent condition. - New Patient This patient is new to me today: No - Critical Care Critical Care patient: No
[2016-08-01] MEDS: CALCIUM ACETATE 667 MG CAPSULE (FP) PO SCH ×3 (10:26→18:15)
[2016-08-01] MEDS: HEPARIN NA (PORCINE) 5,000 UNITS/ML 1ML VIAL SQ SCH ×2 (10:26→22:43)
[2016-08-01] MEDS: FERROUS SO4 325 MG TABLET (FP) PO SCH (10:26)
[2016-08-01] MEDS: amLODIPine BESYLATE 10 MG TABLET (FP) PO SCH ×2 (10:27→13:58)
[2016-08-01] MEDS: CALCIUM 500MG/VIT-D 200 UNITS COMBO TABLET (FP) PO SCH (10:27)
[2016-08-01] MEDS: PANTOPRAZOLE 40 MG TABLET (FP) PO SCH (10:27)
[2016-08-01] MEDS: CALCITRIOL 0.25 MCG CAPSULE (FP) PO SCH ×2 (10:27→22:45)
[2016-08-01] MEDS: ATENOLOL 50 MG TABLET (FP) PO SCH ×2 (10:28→13:58)
--- NOTE | 2016-08-01 10:38 | EKG ---
Test Reason : Blood Pressure : / mmHG Vent. Rate : 116 BPM Atrial Rate : 116 BPM P-R Int : 144 ms QRS Dur : 074 ms QT Int : 324 ms P-R-T Axes : 035 015 088 degrees QTc Int : 450 ms SINUS TACHYCARDIA NONSPECIFIC T WAVE ABNORMALITY ABNORMAL ECG WHEN COMPARED WITH ECG OF 09-APR-2016 16:43, NO SIGNIFICANT CHANGE WAS FOUND Confirmed by LILIAM RAMOS MD ([id number]) on 08/01/2016 10:38:48 AM Referred By: Confirmed By:LILIAM RAMOS MD
[2016-08-01 10:44] LABS: ALBUMIN 1.6 g/dl (3.4-5.0); ANION GAP 8 (8-16); BILIRUBIN,TOTAL 0.2 mg/dL (0.2-1.0); CALCIUM 8.9 mg/dL (8.5-10.1); CO2 29 mmol/L (21-32); CREATININE 6.1 mg/dL (0.55-1.02); GLUCOSE,RANDOM 232 mg/dL (74-106); SGOT/AST 14 U/L (15-37); SGPT/ALT 14 U/L (12-78); TOT PROT 5.6 g/dl (6.4-8.2)
[2016-08-01 10:45] LABS: ALK PHOS 124 U/L (45-117)
--- NOTE | 2016-08-01 11:10 | PN ---
Progress Note, Physician History of Present Illness: Pt seen and examined at bedside. She is currently getting HD. She is frustrated about her DFU. - Current Medication List Current Medications: Active Medications Acetaminophen (Tylenol -) 650 mg PO Q6H PRN PRN Reason: FEVER Amlodipine Besylate (Norvasc -) 10 mg PO DAILY [facility] Last Admin: 08/01/16 10:27 Dose: Not Given Atenolol (Tenormin -) 50 mg PO DAILY [facility] Last Admin: 08/01/16 10:28 Dose: Not Given Atorvastatin Calcium (Lipitor -) 20 mg PO HS [facility] Last Admin: 07/31/16 21:39 Dose: 20 mg Calcitriol (Rocaltrol -) 0.25 mcg PO BID [facility] Last Admin: 08/01/16 10:27 Dose: Not Given Calcium Acetate (Phoslo -) 1,334 mg PO TIDCM [facility] Last Admin: 08/01/16 10:26 Dose: Not Given Calcium Carbonate/Cholecalciferol (Os-Kaz 500+D -) 2 tab PO DAILY [facility] Last Admin: 08/01/16 10:27 Dose: Not Given Clindamycin HCl (Cleocin -) 300 mg PO Q6HPO [facility] Last Admin: 08/01/16 06:21 Dose: 300 mg Collagenase (Santyl -) 1 applic TP DAILY [facility] Last Admin: 07/31/16 15:07 Dose: 1 applic Ferrous Sulfate (Feosol -) 325 mg PO DAILY [facility] Last Admin: 08/01/16 10:26 Dose: Not Given Heparin Sodium (Porcine) (Heparin -) 5,000 unit SQ BID [facility] Last Admin: 08/01/16 10:26 Dose: Not Given Hydralazine HCl (Apresoline -) 10 mg PO TID [facility] Last Admin: 08/01/16 06:21 Dose: 10 mg Insulin Aspart (Novolog Vial Sliding Scale -) 1 vial SQ ACHS [facility] PRN Reason: Protocol Last Admin: 08/01/16 06:22 Dose: 6 units Morphine Sulfate (Morphine Injection -) 2 mg IVPUSH Q4H PRN PRN Reason: PAIN Last Admin: 07/31/16 22:06 Dose: 2 mg Pantoprazole Sodium (Protonix -) 40 mg PO DAILY [facility] Last Admin: 08/01/16 10:27 Dose: Not Given Polyethylene Glycol (Miralax (For Daily Use) -) 17 gm PO PRN PRN Tamsulosin HCl (Flomax -) 0.4 mg PO HS [facility] Last Admin: 07/31/16 21:39 Dose: 0.4 mg - Objective Vital Signs: Vital Signs Temperature 97.8 F 08/01/16 07:30 Pulse Rate 74 08/01/16 10:30 Respiratory Rate 18 08/01/16 10:30 Blood Pressure 175/95 08/01/16 10:30 O2 Sat by Pulse Oximetry (%) 99 07/31/16 21:00 Constitutional: Yes: Calm HENT: Yes: Atraumatic Neck: Yes: Supple Cardiovascular: Yes: S1, S2 Respiratory: Yes: CTA Bilaterally Gastrointestinal: Yes: Soft Genitourinary: Yes: WNL Musculoskeletal: Yes: Other (DFU) Edema: Yes Edema: LLE: Trace, RLE: Trace Neurological: Yes: Oriented Psychiatric: Yes: Oriented Labs: CBC, BMP 08/01/16 08:11 08/01/16 08:11 INR, PTT INR 1.29 (0.82-1.09) H 07/26/16 06:25 Problem List - Problems (1) Diabetic foot infection Code(s): E11.69 - TYPE 2 DIABETES MELLITUS WITH OTHER SPECIFIED COMPLICATION L08.9 - LOCAL INFECTION OF THE SKIN AND SUBCUTANEOUS TISSUE, UNSP (2) ESRD (end stage renal disease) Code(s): N18.6 - END STAGE RENAL DISEASE (3) HTN (hypertension) Code(s): I10 - ESSENTIAL (PRIMARY) HYPERTENSION Assessment/Plan Current Medications Generic Name Dose Route Start Last Admin Trade Name Freq PRN Reason Stop Dose Admin Acetaminophen 650 mg 07/25/16 23:23 Tylenol - PO Q6H PRN FEVER Amlodipine Besylate 10 mg 07/26/16 10:00 08/01/16 10:27 Norvasc - PO Not Given DAILY R[facility] Atenolol 50 mg 07/26/16 10:00 08/01/16 10:28 Tenormin - PO Not Given DAILY [facility] Atorvastatin Calcium 20 mg 07/26/16 22:00 07/31/16 21:39 Lipitor - PO 20 mg HS [facility] Administration Calcitriol 0.25 mcg 07/26/16 22:00 08/01/16 10:27 Rocaltrol - PO Not Given BID [facility] Calcium Acetate 1,334 mg 07/26/16 17:30 08/01/16 10:26 Phoslo - PO Not Given TIDCM [facility] Calcium Carbonate/Cholecalciferol 2 tab 07/27/16 10:00 08/01/16 10:27 Os-Kaz 500+D - PO Not Given DAILY [facility] Clindamycin HCl 300 mg 07/27/16 12:00 08/01/16 06:21 Cleocin - PO 300 mg Q6HPO [facility] Administration Collagenase 1 applic 07/31/16 10:00 07/31/16 15:07 Santyl - TP 1 applic DAILY [facility] Administration Ferrous Sulfate 325 mg 07/26/16 10:00 08/01/16 10:26 Feosol - PO Not Given DAILY [facility] Heparin Sodium (Porcine) 5,000 unit 07/26/16 10:00 08/01/16 10:26 Heparin - SQ Not Given BID [facility] Hydralazine HCl 10 mg 07/31/16 07:45 08/01/16 06:21 Apresoline - PO 10 mg TID [facility] Administration Insulin Aspart 1 vial 07/26/16 07:00 08/01/16 06:22 Novolog Vial Sliding Scale - SQ 6 units ACHS R[facility] Administration Protocol Morphine Sulfate 2 mg 07/29/16 12:31 07/31/16 22:06 Morphine Injection - IVPUSH 2 mg Q4H PRN Administration PAIN Pantoprazole Sodium 40 mg 07/31/16 10:00 08/01/16 10:27 Protonix - PO Not Given DAILY [facility] Polyethylene Glycol 17 gm 07/26/16 17:00 Miralax (For Daily Use) - PO PRN PRN Tamsulosin HCl 0.4 mg 07/26/16 22:00 07/31/16 21:39 Flomax - PO 0.4 mg HS R[facility] Administration Impression 1. ESRD 2. Sepsis 3. DFU 4. HTN 5. anemia 6. mild hyponatremia Plan - pt is currently getting HD - abx per ID - cont wound care - podiatry follow up - continue epogen for anemia - continue to follow cultures - will follow Dr Ponce
[2016-08-01] MEDS: morphine CARPU-JECT 2 MG/1 ML DISP.SYRIN IVPUSH PRN ×2 (12:18→22:45)
[2016-08-01] MEDS ORDERED: PT OWN MED DRAWER 7, Y5N ONE (13:50)
--- NOTE | 2016-08-01 14:00 | PN ---
Progress Note, Physician History of Present Illness: patient stable no new issues - Current Medication List Current Medications: Active Medications Acetaminophen (Tylenol -) 650 mg PO Q6H PRN PRN Reason: FEVER Amlodipine Besylate (Norvasc -) 10 mg PO DAILY [facility] Last Admin: 08/01/16 10:27 Dose: Not Given Atenolol (Tenormin -) 50 mg PO DAILY [facility] Last Admin: 08/01/16 10:28 Dose: Not Given Atorvastatin Calcium (Lipitor -) 20 mg PO HS [facility] Last Admin: 07/31/16 21:39 Dose: 20 mg Calcitriol (Rocaltrol -) 0.25 mcg PO BID [facility] Last Admin: 08/01/16 10:27 Dose: Not Given Calcium Acetate (Phoslo -) 1,334 mg PO TIDCM [facility] Last Admin: 08/01/16 12:19 Dose: 1,334 mg Calcium Carbonate/Cholecalciferol (Os-Kaz 500+D -) 2 tab PO DAILY [facility] Last Admin: 08/01/16 10:27 Dose: Not Given Collagenase (Santyl -) 1 applic TP DAILY [facility] Last Admin: 07/31/16 15:07 Dose: 1 applic Ferrous Sulfate (Feosol -) 325 mg PO DAILY [facility] Last Admin: 08/01/16 10:26 Dose: Not Given Heparin Sodium (Porcine) (Heparin -) 5,000 unit SQ BID [facility] Last Admin: 08/01/16 10:26 Dose: Not Given Hydralazine HCl (Apresoline -) 10 mg PO QID [facility] Insulin Aspart (Novolog Vial Sliding Scale -) 1 vial SQ ACHS [facility] PRN Reason: Protocol Last Admin: 08/01/16 12:19 Dose: 4 units Pantoprazole Sodium (Protonix -) 40 mg PO DAILY [facility] Last Admin: 08/01/16 10:27 Dose: Not Given Polyethylene Glycol (Miralax (For Daily Use) -) 17 gm PO PRN PRN Tamsulosin HCl (Flomax -) 0.4 mg PO HS [facility] Last Admin: 07/31/16 21:39 Dose: 0.4 mg - Objective Vital Signs: Vital Signs Temperature 98.4 F 08/01/16 13:43 Pulse Rate 76 08/01/16 13:43 Respiratory Rate 18 08/01/16 13:43 Blood Pressure 170/90 08/01/16 13:43 O2 Sat by Pulse Oximetry (%) 99 07/31/16 21:00 Constitutional: Yes: No Distress, Calm Cardiovascular: Yes: Regular Rate and Rhythm Respiratory: Yes: Regular, CTA Bilaterally Gastrointestinal: Yes: Normal Bowel Sounds, Soft Musculoskeletal: Yes: Other Extremities: Yes: Other Wound/Incision: Yes: Dressing Dry and Intact Neurological: Yes: Alert, Oriented Psychiatric: Yes: Alert, Oriented Labs: CBC, BMP 08/01/16 08:11 08/01/16 08:11 INR, PTT INR 1.29 (0.82-1.09) H 07/26/16 06:25 Assessment/Plan sepsis esrd r/o wound infection plan continue current mgmt patient doing well
[2016-08-01] MEDS: COLLAGENASE CLOSTRIDIUM HIST. 30 GRAMS TUBE TP SCH (18:14)
[2016-08-01] MEDS ORDERED: INSULIN (NOVOLOG) ASPART 100 UNITS/ML 10ML VIAL ONE (18:25)
[2016-08-01] MEDS ORDERED: diphenhydrAMINE HCL 25 MG CAPSULE (FP) PO ONE (22:41)
[2016-08-01] MEDS: TAMSULOSIN HCL 0.4 MG CAP.ER.24H (FP) PO SCH (22:43)
[2016-08-01] MEDS: INSULIN DETEMIR 100 UNITS/ML MDV SQ SCH (22:44)
[2016-08-01] MEDS: ATORVASTATIN CA 20 MG TABLET (FP) PO SCH (22:44)
[2016-08-02] MEDS: INSULIN SLIDING SCALE (NOVOLOG) 1 VIAL SQ SCH ×4 (06:17→21:22)
[2016-08-02] MEDS: CALCIUM 500MG/VIT-D 200 UNITS COMBO TABLET (FP) PO SCH (09:33)
[2016-08-02] MEDS: PANTOPRAZOLE 40 MG TABLET (FP) PO SCH (09:33)
[2016-08-02] MEDS: HEPARIN NA (PORCINE) 5,000 UNITS/ML 1ML VIAL SQ SCH (09:33)
[2016-08-02] MEDS: CALCIUM ACETATE 667 MG CAPSULE (FP) PO SCH ×3 (09:33→17:10)
[2016-08-02] MEDS: CALCITRIOL 0.25 MCG CAPSULE (FP) PO SCH ×2 (09:33→21:20)
[2016-08-02] MEDS: amLODIPine BESYLATE 10 MG TABLET (FP) PO SCH (09:33)
[2016-08-02] MEDS: hydrALAZINE HCL 10 MG TABLET PO SCH ×4 (09:34→21:35)
[2016-08-02] MEDS: FERROUS SO4 325 MG TABLET (FP) PO SCH (09:34)
[2016-08-02] MEDS: ATENOLOL 50 MG TABLET (FP) PO SCH (09:34)
[2016-08-02] MEDS: COLLAGENASE CLOSTRIDIUM HIST. 30 GRAMS TUBE TP SCH (09:34)
--- NOTE | 2016-08-02 10:03 | PN ---
Physical Exam: SUBJECTIVE: Patient seen and examined at bedside. Patient is nonweight bearing and does not have her [place]. OBJECTIVE: Vital Signs 3 Period Temp Pulse Resp BP Sys/Guardado Pulse Ox Last 24 Hr 97.5 F-98.5 F 66-79 18-18 134-180/72-95 98 GENERAL: The patient is awake, alert, and fully oriented, in no acute distress. HEAD: Normal with no signs of trauma. LUNGS: Breath sounds equal, clear to auscultation bilaterally, no wheezes, no crackles, no accessory muscle use. HEART: Regular rate and rhythm, S1, S2 without murmur, rub or gallop. ABDOMEN: Soft, nontender, nondistended, normoactive bowel sounds, no guarding, no rebound, no hepatosplenomegaly, no masses. EXTREMITIES: 2+ pulses, warm, well-perfused, no edema. NEUROLOGICAL: Cranial nerves II through XII grossly intact. Normal speech, gait not observed. SKIN: Warm, dry, normal turgor, no rashes or lesions noted. Diabetic ulcer to Left Charcot foot. Laboratory Results - last 24 hr 3 08/01/16 08/01/16 08/01/16 08:11 12:00 17:05 Sodium 135 L Potassium 3.7 Chloride 98 Carbon Dioxide 29 Anion Gap 8 BUN 17 D Creatinine 6.1 H D Creat Clearance w eGFR 8.08 POC Glucometer 212 200 Random Glucose 232 H Calcium 8.9 Total Bilirubin 0.2 D AST 14 L ALT 14 Alkaline Phosphatase 124 H Total Protein 5.6 L Albumin 1.6 L 3 08/01/16 08/02/16 22:33 06:15 Sodium Potassium Chloride Carbon Dioxide Anion Gap BUN Creatinine Creat Clearance w eGFR POC Glucometer 285 192 Random Glucose Calcium Total Bilirubin AST ALT Alkaline Phosphatase Total Protein Albumin Active Medications 3 Generic Name Dose Route Start Last Admin Trade Name Freq PRN Reason Stop Dose Admin Acetaminophen 650 mg 07/25/16 23:23 Tylenol - PO Q6H PRN FEVER Amlodipine Besylate 10 mg 07/26/16 10:00 08/02/16 09:33 Norvasc - PO 10 mg DAILY [facility] Administration Atenolol 50 mg 07/26/16 10:00 08/02/16 09:34 Tenormin - PO 50 mg DAILY [facility] Administration Atorvastatin Calcium 20 mg 07/26/16 22:00 08/01/16 22:44 Lipitor - PO 20 mg HS [facility] Administration Calcitriol 0.25 mcg 07/26/16 22:00 08/02/16 09:33 Rocaltrol - PO 0.25 mcg BID [facility] Administration Calcium Acetate 1,334 mg 07/26/16 17:30 08/02/16 09:33 Phoslo - PO 1,334 mg TIDCM [facility] Administration Calcium Carbonate/Cholecalciferol 2 tab 07/27/16 10:00 08/02/16 09:33 Os-Kaz 500+D - PO 2 tab DAILY [facility] Administration Collagenase 1 applic 07/31/16 10:00 08/02/16 09:34 Santyl - TP 1 applic DAILY [facility] Administration Ferrous Sulfate 325 mg 07/26/16 10:00 08/02/16 09:34 Feosol - PO 325 mg DAILY [facility] Administration Hydralazine HCl 10 mg 08/01/16 14:00 08/02/16 09:34 Apresoline - PO 10 mg QID [facility] Administration Insulin Aspart 1 vial 07/26/16 07:00 08/02/16 06:17 Novolog Vial Sliding Scale - SQ 2 units ACHS [facility] Administration Protocol Insulin Detemir 5 units 08/01/16 22:00 08/01/16 22:44 Levemir Vial SQ 5 unit HS [facility] Administration Morphine Sulfate 2 mg 08/01/16 20:17 08/01/16 22:45 Morphine Injection - IVPUSH 2 mg Q4H PRN Administration PAIN Pantoprazole Sodium 40 mg 07/31/16 10:00 08/02/16 09:33 Protonix - PO 40 mg DAILY [facility] Administration Polyethylene Glycol 17 gm 07/26/16 17:00 Miralax (For Daily Use) - PO PRN PRN Tamsulosin HCl 0.4 mg 07/26/16 22:00 08/01/16 22:43 Flomax - PO 0.4 mg HS [facility] Administration ASSESSMENT/PLAN: Assessment: This is a 31 year old female with PMHx of IDDM, charcot foot, ESRD ( HD M,W,F), left foot osteomyelitis, b/l retinopathy HTN, hyperlipidemia, GERD, who presented to the ED with chills, nausea, vomiting and sent from [facility] dialysis for vomiting and fever. Plan: 1. Sepsis 2/2 osteomyelitis vs. shiley catheter vs UTI - No clear source of infection, all cultures negative - Cast removed and per podiatry no evidence of acute process on left foot plantar wound (debridement at bedside) - Abx discontinued yesterday - Pain management - Appreciate podiatry consult, santyl daily - Appreciate ID consult 2. ESRD on HD - Continue with scheduled HD (M,W,F) - Tolerated HD yesterday - Appreciate nephrology consult 3. HTN - Continue Atenolol - Continue Norvasc - Added Hydralazine 10mg po qid 4. Hyperlipidemia - Continue Lipitor 5. Foul smelling diarrhea - F/u c.diff - F/u stool studies 6. GERD - Continue Protonix 7. F/E/N - Renal, diabetic diet - Monitor electrolytes 8. PPX - Heparin 5,000u sq bid - PT consult Dispo- Requires continued inpatient care CODE STATUS: FULL CODE Visit type - Emergency Visit Emergency Visit: Yes ED Registration Date: 07/25/16 Care time: The patient presented to the Emergency Department on the above date and was hospitalized for further evaluation of their emergent condition. - New Patient This patient is new to me today: Yes Date on this admission: 08/02/16 - Critical Care Critical Care patient: No
[2016-08-02] MEDS: morphine CARPU-JECT 2 MG/1 ML DISP.SYRIN IVPUSH PRN ×2 (10:27→15:43)
--- NOTE | 2016-08-02 13:14 | PN ---
Progress Note, Physician History of Present Illness: patient stable no new issues - Current Medication List Current Medications: Active Medications Acetaminophen (Tylenol -) 650 mg PO Q6H PRN PRN Reason: FEVER Amlodipine Besylate (Norvasc -) 10 mg PO DAILY [facility] Last Admin: 08/02/16 09:33 Dose: 10 mg Atenolol (Tenormin -) 50 mg PO DAILY [facility] Last Admin: 08/02/16 09:34 Dose: 50 mg Atorvastatin Calcium (Lipitor -) 20 mg PO HS [facility] Last Admin: 08/01/16 22:44 Dose: 20 mg Calcitriol (Rocaltrol -) 0.25 mcg PO BID [facility] Last Admin: 08/02/16 09:33 Dose: 0.25 mcg Calcium Acetate (Phoslo -) 1,334 mg PO TIDCM [facility] Last Admin: 08/02/16 12:01 Dose: 1,334 mg Calcium Carbonate/Cholecalciferol (Os-Kaz 500+D -) 2 tab PO DAILY [facility] Last Admin: 08/02/16 09:33 Dose: 2 tab Collagenase (Santyl -) 1 applic TP DAILY [facility] Last Admin: 08/02/16 09:34 Dose: 1 applic Ferrous Sulfate (Feosol -) 325 mg PO DAILY [facility] Last Admin: 08/02/16 09:34 Dose: 325 mg Hydralazine HCl (Apresoline -) 10 mg PO QID [facility] Last Admin: 08/02/16 13:04 Dose: 10 mg Insulin Aspart (Novolog Vial Sliding Scale -) 1 vial SQ [facility] PRN Reason: Protocol Last Admin: 08/02/16 11:49 Dose: Not Given Insulin Detemir (Levemir Vial) 5 units SQ [facility] Last Admin: 08/01/16 22:44 Dose: 5 unit Morphine Sulfate (Morphine Injection -) 2 mg IVPUSH Q4H PRN PRN Reason: PAIN Last Admin: 08/02/16 10:27 Dose: 2 mg Pantoprazole Sodium (Protonix -) 40 mg PO DAILY [facility] Last Admin: 08/02/16 09:33 Dose: 40 mg Polyethylene Glycol (Miralax (For Daily Use) -) 17 gm PO PRN PRN Tamsulosin HCl (Flomax -) 0.4 mg PO HS [facility] Last Admin: 08/01/16 22:43 Dose: 0.4 mg - Objective Vital Signs: Vital Signs Temperature 98.3 F 08/02/16 09:00 Pulse Rate 76 08/02/16 09:00 Respiratory Rate 18 08/02/16 06:00 Blood Pressure 150/72 08/02/16 09:00 O2 Sat by Pulse Oximetry (%) 98 08/01/16 21:00 Constitutional: Yes: No Distress, Calm Neck: Yes: Supple Cardiovascular: Yes: Regular Rate and Rhythm Respiratory: Yes: Regular, CTA Bilaterally Gastrointestinal: Yes: Normal Bowel Sounds, Soft Extremities: Yes: Other Neurological: Yes: Alert, Oriented Psychiatric: Yes: Alert Labs: CBC, BMP 08/01/16 08:11 08/01/16 08:11 INR, PTT INR 1.29 (0.82-1.09) H 07/26/16 06:25 Assessment/Plan sepsis esrd r/o wound infection plan continue current mgmt patient doing well
[2016-08-02] MEDS ORDERED: PT OWN MED DRAWER 7, Y5N ONE ×2 (16:53→21:34)
[2016-08-02] MEDS ORDERED: INSULIN (NOVOLOG) ASPART 100 UNITS/ML 10ML VIAL ONE (20:47)
[2016-08-02] MEDS: ATORVASTATIN CA 20 MG TABLET (FP) PO SCH (21:20)
[2016-08-02] MEDS: TAMSULOSIN HCL 0.4 MG CAP.ER.24H (FP) PO SCH (21:20)
[2016-08-02] MEDS: INSULIN DETEMIR 100 UNITS/ML MDV SQ SCH (21:22)
[2016-08-03] MEDS: morphine CARPU-JECT 2 MG/1 ML DISP.SYRIN IVPUSH PRN ×3 (00:45→19:30)
[2016-08-03] MEDS: INSULIN SLIDING SCALE (NOVOLOG) 1 VIAL SQ SCH ×4 (06:21→22:01)
--- NOTE | 2016-08-03 08:15 | PN ---
Physical Exam: SUBJECTIVE: Patient seen and examined at bedside. Denies c/o at present. OBJECTIVE: Vital Signs Period Temp Pulse Resp BP Sys/Guardado Pulse Ox Last 24 Hr 98.0 F-98.9 F 76-80 16-18 150-173/72-90 98-98 GENERAL: The patient is awake, alert, and fully oriented, in no acute distress. HEAD: Normal with no signs of trauma. LUNGS: Breath sounds equal, clear to auscultation bilaterally, no wheezes, no crackles, no accessory muscle use. HEART: Regular rate and rhythm, S1, S2 without murmur, rub or gallop. ABDOMEN: Soft, nontender, nondistended, normoactive bowel sounds, no guarding, no rebound, no hepatosplenomegaly, no masses. EXTREMITIES: 2+ pulses, warm, well-perfused, no edema. NEUROLOGICAL: Cranial nerves II through XII grossly intact. Normal speech, gait not observed. SKIN: Warm, dry, normal turgor, no rashes or lesions noted. Diabetic ulcer to Left Charcot foot. Laboratory Results - last 24 hr 3 08/02/16 08/02/16 08/03/16 17:55 21:21 05:45 POC Glucometer 275 300 328 Active Medications 3 Generic Name Dose Route Start Last Admin Trade Name Freq PRN Reason Stop Dose Admin Acetaminophen 650 mg 07/25/16 23:23 Tylenol - PO Q6H PRN FEVER Amlodipine Besylate 10 mg 07/26/16 10:00 08/02/16 09:33 Norvasc - PO 10 mg DAILY [facility] Administration Atenolol 50 mg 07/26/16 10:00 08/02/16 09:34 Tenormin - PO 50 mg DAILY [facility] Administration Atorvastatin Calcium 20 mg 07/26/16 22:00 08/02/16 21:20 Lipitor - PO 20 mg HS [facility] Administration Calcitriol 0.25 mcg 07/26/16 22:00 08/02/16 21:20 Rocaltrol - PO 0.25 mcg BID [facility] Administration Calcium Acetate 1,334 mg 07/26/16 17:30 08/02/16 17:10 Phoslo - PO 1,334 mg TIDCM [facility] Administration Calcium Carbonate/Cholecalciferol 2 tab 07/27/16 10:00 08/02/16 09:33 Os-Kaz 500+D - PO 2 tab DAILY [facility] Administration Collagenase 1 applic 07/31/16 10:00 08/02/16 09:34 Santyl - TP 1 applic DAILY [facility] Administration Ferrous Sulfate 325 mg 07/26/16 10:00 08/02/16 09:34 Feosol - PO 325 mg DAILY [facility] Administration Hydralazine HCl 25 mg 08/03/16 08:15 Apresoline - PO TID [facility] Insulin Aspart 1 vial 07/26/16 07:00 08/03/16 06:21 Novolog Vial Sliding Scale - SQ 8 units ACHS [facility] Administration Protocol Insulin Detemir 5 units 08/01/16 22:00 08/02/16 21:22 Levemir Vial SQ 5 unit HS [facility] Administration Morphine Sulfate 2 mg 08/01/16 20:17 08/03/16 00:45 Morphine Injection - IVPUSH 2 mg Q4H PRN Administration PAIN Pantoprazole Sodium 40 mg 07/31/16 10:00 08/02/16 09:33 Protonix - PO 40 mg DAILY [facility] Administration Polyethylene Glycol 17 gm 07/26/16 17:00 Miralax (For Daily Use) - PO PRN PRN Tamsulosin HCl 0.4 mg 07/26/16 22:00 08/02/16 21:20 Flomax - PO 0.4 mg HS [facility] Administration ASSESSMENT/PLAN: A: 31 yo female with PMH of IDDM, charcot foot, ESRD (HD ,,F), left foot osteomyelitis, b/l retinopathy HTN, hyperlipidemia, GERD, who presented to the ED with chills, nausea, vomiting and sent from [facility] dialysis for vomiting and fever. P: 1. Sepsis 2/2 osteomyelitis vs. shiley catheter vs UTI - No clear source of infection, all cultures negative - Cast removed and per podiatry no evidence of acute process on left foot plantar wound (debridement at bedside) - Abx discontinued yesterday - Pain management - Appreciate podiatry consult, santyl daily - Appreciate ID consult 2. ESRD on HD - Continue with scheduled HD (,W,F) - Tolerated HD yesterday - Appreciate nephrology consult 3. HTN -remains hypertensive SBP 160-170 overnight - Continue Atenolol - Continue Norvasc - Increased Hydralazine 25mg po tid 4. Hyperlipidemia - Continue Lipitor 5. Foul smelling diarrhea - F/u c.diff - F/u stool studies 6. GERD - Continue Protonix 7. F/E/N - Renal, diabetic diet - Monitor electrolytes 8. PPX - Heparin 5,000u sq bid - PT consult Dispo- Requires continued inpatient care - unsafe d/c as lives alone and is NWB on left foot. Pt agrees with d/c to wound clinic who will place cast to bear weight. Has appt Thursday. CODE STATUS: FULL CODE Visit type - Emergency Visit Emergency Visit: Yes ED Registration Date: 07/25/16 Care time: The patient presented to the Emergency Department on the above date and was hospitalized for further evaluation of their emergent condition. - New Patient This patient is new to me today: No - Critical Care Critical Care patient: No
[2016-08-03] MEDS: CALCIUM ACETATE 667 MG CAPSULE (FP) PO SCH ×3 (08:44→16:33)
[2016-08-03] MEDS ORDERED: PT OWN MED DRAWER 7, Y5N ONE ×2 (08:55→20:54)
[2016-08-03] MEDS: ATENOLOL 50 MG TABLET (FP) PO SCH (09:02)
[2016-08-03] MEDS: CALCITRIOL 0.25 MCG CAPSULE (FP) PO SCH ×2 (09:02→21:58)
[2016-08-03] MEDS: PANTOPRAZOLE 40 MG TABLET (FP) PO SCH (09:02)
[2016-08-03] MEDS: FERROUS SO4 325 MG TABLET (FP) PO SCH (09:02)
[2016-08-03] MEDS: amLODIPine BESYLATE 10 MG TABLET (FP) PO SCH (09:02)
[2016-08-03] MEDS: CALCIUM 500MG/VIT-D 200 UNITS COMBO TABLET (FP) PO SCH (09:02)
[2016-08-03] MEDS: hydrALAZINE HCL 10 MG TABLET PO SCH ×2 (09:03→13:56)
[2016-08-03] MEDS: COLLAGENASE CLOSTRIDIUM HIST. 30 GRAMS TUBE TP SCH (09:04)
--- NOTE | 2016-08-03 12:42 | PN ---
Progress Note, Physician History of Present Illness: Renal F/U Pt in no distress and denies any c/o pain at this time For possible discharge today - Current Medication List Current Medications: Active Medications Acetaminophen (Tylenol -) 650 mg PO Q6H PRN PRN Reason: FEVER Amlodipine Besylate (Norvasc -) 10 mg PO DAILY [facility] Last Admin: 08/03/16 09:02 Dose: 10 mg Atenolol (Tenormin -) 50 mg PO DAILY [facility] Last Admin: 08/03/16 09:02 Dose: 50 mg Atorvastatin Calcium (Lipitor -) 20 mg PO HS [facility] Last Admin: 08/02/16 21:20 Dose: 20 mg Calcitriol (Rocaltrol -) 0.25 mcg PO BID [facility] Last Admin: 08/03/16 09:02 Dose: 0.25 mcg Calcium Acetate (Phoslo -) 1,334 mg PO TIDCM [facility] Last Admin: 08/03/16 12:29 Dose: 1,334 mg Calcium Carbonate/Cholecalciferol (Os-Kaz 500+D -) 2 tab PO DAILY [facility] Last Admin: 08/03/16 09:02 Dose: 2 tab Collagenase (Santyl -) 1 applic TP DAILY [facility] Last Admin: 08/03/16 09:04 Dose: 1 applic Ferrous Sulfate (Feosol -) 325 mg PO DAILY [facility] Last Admin: 08/03/16 09:02 Dose: 325 mg Hydralazine HCl (Apresoline -) 25 mg PO TID [facility] Last Admin: 08/03/16 09:03 Dose: 25 mg Insulin Aspart (Novolog Vial Sliding Scale -) 1 vial SQ ACHS [facility] PRN Reason: Protocol Last Admin: 08/03/16 12:28 Dose: 4 units Insulin Detemir (Levemir Vial) 5 units SQ HS [facility] Last Admin: 08/02/16 21:22 Dose: 5 unit Morphine Sulfate (Morphine Injection -) 2 mg IVPUSH Q4H PRN PRN Reason: PAIN Last Admin: 08/03/16 09:02 Dose: 2 mg Pantoprazole Sodium (Protonix -) 40 mg PO DAILY [facility] Last Admin: 08/03/16 09:02 Dose: 40 mg Polyethylene Glycol (Miralax (For Daily Use) -) 17 gm PO PRN PRN Tamsulosin HCl (Flomax -) 0.4 mg PO HS [facility] Last Admin: 08/02/16 21:20 Dose: 0.4 mg - Objective Vital Signs: Vital Signs Temperature 98.2 F 08/03/16 09:00 Pulse Rate 77 08/03/16 09:00 Respiratory Rate 20 08/03/16 09:00 Blood Pressure 172/80 08/03/16 09:00 O2 Sat by Pulse Oximetry (%) 98 08/03/16 09:00 Constitutional: Yes: No Distress Cardiovascular: Yes: S1, S2 Respiratory: Yes: CTA Bilaterally Gastrointestinal: Yes: Soft. No: Tenderness, Rebound Extremities: Yes: Other (Left foot dressing) Edema: LLE: Trace, RLE: Trace Labs: CBC, BMP 08/01/16 08:11 08/01/16 08:11 INR, PTT INR 1.29 (0.82-1.09) H 07/26/16 06:25 Assessment/Plan Impression 1. ESRD 2. Sepsis 3. DFU 4. HTN 5. Anemia 6. Borderline hyponatremia Plan - Next HD tomorrow either as in or out patient - HD orders written with Epogen - Wound care - Consider adding another antihypertensive agent if systolic BP remains elevated Dr Navarrete
[2016-08-03] MEDS: ATORVASTATIN CA 20 MG TABLET (FP) PO SCH (21:58)
[2016-08-03] MEDS: hydrALAZINE HCL 25 MG TABLET (FP) PO SCH (21:58)
[2016-08-03] MEDS: TAMSULOSIN HCL 0.4 MG CAP.ER.24H (FP) PO SCH (21:58)
[2016-08-03] MEDS: diphenhydrAMINE HCL 25 MG CAPSULE (FP) PO PRN (21:58)
[2016-08-03] MEDS: INSULIN DETEMIR 100 UNITS/ML MDV SQ SCH (22:01)
[2016-08-04] MEDS: INSULIN SLIDING SCALE (NOVOLOG) 1 VIAL SQ SCH ×4 (06:12→22:11)
[2016-08-04] MEDS: hydrALAZINE HCL 25 MG TABLET (FP) PO SCH ×3 (06:12→22:12)
[2016-08-04 08:33] LABS: BASOPHIL 0.7 % (0-2.0); MCH 30.8 pg (25.7-33.7); MCHC 32.4 g/dl (32.0-36.0); MEAN CELL VOLUME 95.3 fl (80-96); MEAN PLT VOLUME 8.4 fl (7.5-11.1); PLATELET COUNT 273 K/MM3 (134-434); RDW 16.7 % (11.6-15.6); WHITE BLOOD COUNT 5.2 K/mm3 (4.0-10.0)
[2016-08-04] MEDS: CALCIUM ACETATE 667 MG CAPSULE (FP) PO SCH ×3 (08:57→18:25)
[2016-08-04] MEDS ORDERED: EPOETIN ALFA 10,000 UNIT/1 ML VIAL SQ ONE (09:00)
[2016-08-04 09:23] LABS: ALBUMIN 1.7 g/dl (3.4-5.0); ANION GAP 9 (8-16); BILIRUBIN,TOTAL 0.2 mg/dL (0.2-1.0); CALCIUM 9.1 mg/dL (8.5-10.1); CO2 30 mmol/L (21-32); CREATININE 6.6 mg/dL (0.55-1.02); GLUCOSE,RANDOM 149 mg/dL (74-106); PHOSPHOROUS 3.3 mg/dL (2.5-4.9); SGOT/AST 15 U/L (15-37); SGPT/ALT 12 U/L (12-78); TOT PROT 5.4 g/dl (6.4-8.2)
[2016-08-04 09:24] LABS: ALK PHOS 110 U/L (45-117)
--- NOTE | 2016-08-04 11:25 | PN ---
Progress Note, Physician History of Present Illness: stable from my point of view no issues no distress - Current Medication List Current Medications: Active Medications Acetaminophen (Tylenol -) 650 mg PO Q6H PRN PRN Reason: FEVER Amlodipine Besylate (Norvasc -) 10 mg PO DAILY [facility] Last Admin: 08/03/16 09:02 Dose: 10 mg Atenolol (Tenormin -) 50 mg PO DAILY [facility] Last Admin: 08/03/16 09:02 Dose: 50 mg Atorvastatin Calcium (Lipitor -) 20 mg PO HS [facility] Last Admin: 08/03/16 21:58 Dose: 20 mg Calcitriol (Rocaltrol -) 0.25 mcg PO BID [facility] Last Admin: 08/03/16 21:58 Dose: 0.25 mcg Calcium Acetate (Phoslo -) 1,334 mg PO TIDCM [facility] Last Admin: 08/04/16 08:57 Dose: Not Given Calcium Carbonate/Cholecalciferol (Os-Kaz 500+D -) 2 tab PO DAILY [facility] Last Admin: 08/03/16 09:02 Dose: 2 tab Collagenase (Santyl -) 1 applic TP DAILY [facility] Last Admin: 08/03/16 09:04 Dose: 1 applic Diphenhydramine HCl (Benadryl -) 25 mg PO Q8H PRN PRN Reason: FOR ITCHING Last Admin: 08/03/16 21:58 Dose: 25 mg Ferrous Sulfate (Feosol -) 325 mg PO DAILY [facility] Last Admin: 08/03/16 09:02 Dose: 325 mg Hydralazine HCl (Apresoline -) 25 mg PO TID [facility] Last Admin: 08/04/16 06:12 Dose: Not Given Insulin Aspart (Novolog Vial Sliding Scale -) 1 vial SQ ACHS [facility] PRN Reason: Protocol Last Admin: 08/04/16 06:12 Dose: 2 units Insulin Detemir (Levemir Vial) 5 units SQ HS [facility] Last Admin: 08/03/16 22:01 Dose: 5 units Morphine Sulfate (Morphine Injection -) 2 mg IVPUSH Q4H PRN PRN Reason: PAIN Last Admin: 08/03/16 19:30 Dose: 2 mg Pantoprazole Sodium (Protonix -) 40 mg PO DAILY [facility] Last Admin: 08/03/16 09:02 Dose: 40 mg Polyethylene Glycol (Miralax (For Daily Use) -) 17 gm PO PRN PRN Tamsulosin HCl (Flomax -) 0.4 mg PO HS [facility] Last Admin: 08/03/16 21:58 Dose: 0.4 mg - Objective Vital Signs: Vital Signs Temperature 97.6 F 08/04/16 06:55 Pulse Rate 70 08/04/16 10:55 Respiratory Rate 18 08/04/16 10:55 Blood Pressure 174/100 08/04/16 10:55 O2 Sat by Pulse Oximetry (%) 98 08/03/16 20:37 Constitutional: Yes: No Distress, Calm Neck: Yes: Supple Cardiovascular: Yes: Regular Rate and Rhythm Respiratory: Yes: Regular, CTA Bilaterally Gastrointestinal: Yes: Normal Bowel Sounds, Soft Musculoskeletal: Yes: Other Extremities: Yes: Other Neurological: Yes: Alert, Oriented Psychiatric: Yes: Alert, Oriented Labs: CBC, BMP 08/04/16 07:00 08/04/16 07:00 INR, PTT INR 1.29 (0.82-1.09) H 07/26/16 06:25 Assessment/Plan sepsis esrd wound infection plan continue current mgmt patient doing well awaiting final plan completed abx course
[2016-08-04] MEDS: CALCIUM 500MG/VIT-D 200 UNITS COMBO TABLET (FP) PO SCH (12:01)
[2016-08-04] MEDS: FERROUS SO4 325 MG TABLET (FP) PO SCH (12:02)
[2016-08-04] MEDS: amLODIPine BESYLATE 10 MG TABLET (FP) PO SCH (12:02)
[2016-08-04] MEDS: PANTOPRAZOLE 40 MG TABLET (FP) PO SCH (12:02)
[2016-08-04] MEDS: ATENOLOL 50 MG TABLET (FP) PO SCH (12:02)
[2016-08-04] MEDS: CALCITRIOL 0.25 MCG CAPSULE (FP) PO SCH ×2 (12:03→22:12)
[2016-08-04] MEDS: morphine CARPU-JECT 2 MG/1 ML DISP.SYRIN IVPUSH PRN (12:15)
--- NOTE | 2016-08-04 14:58 | PN ---
Progress Note, Physician History of Present Illness: Pt seen and examined at bedside. She tolerated HD. She is awake and alert. - Current Medication List Current Medications: Active Medications Acetaminophen (Tylenol -) 650 mg PO Q6H PRN PRN Reason: FEVER Amlodipine Besylate (Norvasc -) 10 mg PO DAILY [facility] Last Admin: 08/04/16 12:02 Dose: 10 mg Atenolol (Tenormin -) 50 mg PO DAILY [facility] Last Admin: 08/04/16 12:02 Dose: 50 mg Atorvastatin Calcium (Lipitor -) 20 mg PO HS [facility] Last Admin: 08/03/16 21:58 Dose: 20 mg Calcitriol (Rocaltrol -) 0.25 mcg PO BID [facility] Last Admin: 08/04/16 12:03 Dose: Not Given Calcium Acetate (Phoslo -) 1,334 mg PO TIDCM [facility] Last Admin: 08/04/16 12:01 Dose: 1,334 mg Calcium Carbonate/Cholecalciferol (Os-Kaz 500+D -) 2 tab PO DAILY [facility] Last Admin: 08/04/16 12:01 Dose: 2 tab Collagenase (Santyl -) 1 applic TP DAILY [facility] Last Admin: 08/03/16 09:04 Dose: 1 applic Diphenhydramine HCl (Benadryl -) 25 mg PO Q8H PRN PRN Reason: FOR ITCHING Last Admin: 08/03/16 21:58 Dose: 25 mg Ferrous Sulfate (Feosol -) 325 mg PO DAILY [facility] Last Admin: 08/04/16 12:02 Dose: 325 mg Hydralazine HCl (Apresoline -) 25 mg PO TID [facility] Last Admin: 08/04/16 06:12 Dose: Not Given Insulin Aspart (Novolog Vial Sliding Scale -) 1 vial SQ ACHS [facility] PRN Reason: Protocol Last Admin: 08/04/16 12:02 Dose: 2 units Insulin Detemir (Levemir Vial) 5 units SQ [facility] Last Admin: 08/03/16 22:01 Dose: 5 units Morphine Sulfate (Morphine Injection -) 2 mg IVPUSH Q4H PRN PRN Reason: PAIN Last Admin: 08/04/16 12:15 Dose: 2 mg Pantoprazole Sodium (Protonix -) 40 mg PO DAILY [facility] Last Admin: 08/04/16 12:02 Dose: 40 mg Polyethylene Glycol (Miralax (For Daily Use) -) 17 gm PO PRN PRN Tamsulosin HCl (Flomax -) 0.4 mg PO HS [facility] Last Admin: 08/03/16 21:58 Dose: 0.4 mg - Objective Vital Signs: Vital Signs Temperature 98.9 F 08/04/16 14:45 Pulse Rate 77 08/04/16 14:45 Respiratory Rate 18 08/04/16 14:45 Blood Pressure 157/72 08/04/16 14:45 O2 Sat by Pulse Oximetry (%) 98 08/03/16 20:37 Constitutional: Yes: Calm Eyes: Yes: Conjunctiva Clear HENT: Yes: Atraumatic Neck: Yes: Supple Cardiovascular: Yes: S1, S2 Respiratory: Yes: CTA Bilaterally Gastrointestinal: Yes: Normal Bowel Sounds, Soft Genitourinary: Yes: WNL Edema: Yes Edema: LLE: Trace, RLE: Trace Wound/Incision: Yes: Dressing Dry and Intact Psychiatric: Yes: Oriented Labs: CBC, BMP 08/04/16 07:00 08/04/16 07:00 INR, PTT INR 1.29 (0.82-1.09) H 07/26/16 06:25 Problem List - Problems (1) Diabetic foot infection Code(s): E11.69 - TYPE 2 DIABETES MELLITUS WITH OTHER SPECIFIED COMPLICATION L08.9 - LOCAL INFECTION OF THE SKIN AND SUBCUTANEOUS TISSUE, UNSP (2) ESRD (end stage renal disease) Code(s): N18.6 - END STAGE RENAL DISEASE (3) HTN (hypertension) Code(s): I10 - ESSENTIAL (PRIMARY) HYPERTENSION Assessment/Plan Current Medications Generic Name Dose Route Start Last Admin Trade Name Freq PRN Reason Stop Dose Admin Acetaminophen 650 mg 07/25/16 23:23 Tylenol - PO Q6H PRN FEVER Amlodipine Besylate 10 mg 07/26/16 10:00 08/04/16 12:02 Norvasc - PO 10 mg DAILY [facility] Administration Atenolol 50 mg 07/26/16 10:00 08/04/16 12:02 Tenormin - PO 50 mg DAILY [facility] Administration Atorvastatin Calcium 20 mg 07/26/16 22:00 08/03/16 21:58 Lipitor - PO 20 mg HS [facility] Administration Calcitriol 0.25 mcg 07/26/16 22:00 08/04/16 12:03 Rocaltrol - PO Not Given BID [facility] Calcium Acetate 1,334 mg 07/26/16 17:30 08/04/16 12:01 Phoslo - PO 1,334 mg TIDCM [facility] Administration Calcium Carbonate/Cholecalciferol 2 tab 07/27/16 10:00 08/04/16 12:01 Os-Kaz 500+D - PO 2 tab DAILY [facility] Administration Collagenase 1 applic 07/31/16 10:00 08/03/16 09:04 Santyl - TP 1 applic DAILY [facility] Administration Diphenhydramine HCl 25 mg 08/03/16 21:40 08/03/16 21:58 Benadryl - PO 25 mg Q8H PRN Administration FOR ITCHING Ferrous Sulfate 325 mg 07/26/16 10:00 08/04/16 12:02 Feosol - PO 325 mg DAILY [facility] Administration Hydralazine HCl 25 mg 08/03/16 22:00 08/04/16 06:12 Apresoline - PO Not Given TID [facility] Insulin Aspart 1 vial 07/26/16 07:00 08/04/16 12:02 Novolog Vial Sliding Scale - SQ 2 units ACHS [facility] Administration Protocol Insulin Detemir 5 units 08/01/16 22:00 08/03/16 22:01 Levemir Vial SQ 5 units HS [facility] Administration Morphine Sulfate 2 mg 08/01/16 20:17 08/04/16 12:15 Morphine Injection - IVPUSH 2 mg Q4H PRN Administration PAIN Pantoprazole Sodium 40 mg 07/31/16 10:00 08/04/16 12:02 Protonix - PO 40 mg DAILY [facility] Administration Polyethylene Glycol 17 gm 07/26/16 17:00 Miralax (For Daily Use) - PO PRN PRN Tamsulosin HCl 0.4 mg 07/26/16 22:00 08/03/16 21:58 Flomax - PO 0.4 mg HS [facility] Administration Impression 1. ESRD 2. Sepsis 3. DFU 4. HTN 5. anemia 6. mild hyponatremia 7. DM Plan - pt tolerated HD - cont wound care to foot - podiatry follow up - continue epogen for anemia - will follow Dr Ponce
--- NOTE | 2016-08-04 15:32 | PN ---
Physical Exam: SUBJECTIVE: Patient seen during dialysis. She states she feels well, eager to go home. OBJECTIVE: Spoke with Dr. Crews office and confirmed that patient has an appointment tomorrow at 11:[address] Crews to evaluate left foot and decide on whether or not to replace the cast. Vital Signs Period Temp Pulse Resp BP Sys/Guardado Pulse Ox Last 24 Hr 97.6 F-98.9 F 70-79 18-20 139-180/68-100 98 GENERAL: The patient is awake, alert, and fully oriented, in no acute distress. HEAD: Normal with no signs of trauma. EYES: PERRL, extraocular movements intact, sclera anicteric, conjunctiva clear. No ptosis. ENT: Ears normal, nares patent, oropharynx clear without exudates, moist mucous membranes. NECK: Trachea midline, full range of motion, supple. LUNGS: Breath sounds equal, clear to auscultation bilaterally, no wheezes, no crackles, no accessory muscle use. HEART: Regular rate and rhythm, S1, S2 without murmur, rub or gallop. ABDOMEN: Soft, nontender, nondistended, normoactive bowel sounds, no guarding, no rebound, no hepatosplenomegaly, no masses. EXTREMITIES: left foot sterile dresssing, has diabetic foot ulcer, cast removed last Thursday NEUROLOGICAL: Normal speech PSYCH: Normal mood, normal affect. Laboratory Results - last 24 hr 08/03/16 08/03/16 08/04/16 16:29 21:22 05:49 WBC RBC Hgb Hct MCV MCHC RDW Plt Count MPV Neutrophils % Lymphocytes % Monocytes % Eosinophils % Basophils % Sodium Potassium Chloride Carbon Dioxide Anion Gap BUN Creatinine Creat Clearance w eGFR POC Glucometer 288 277 185 Random Glucose Calcium Phosphorus Total Bilirubin AST ALT Alkaline Phosphatase Total Protein Albumin 08/04/16 08/04/16 08/04/16 07:00 07:00 11:51 WBC 5.2 RBC 2.79 L Hgb 8.6 L Hct 26.6 L MCV 95.3 MCHC 32.4 RDW 16.7 H Plt Count 273 MPV 8.4 Neutrophils % 51.0 Lymphocytes % 35.7 D Monocytes % 4.6 Eosinophils % 8.0 H Basophils % 0.7 D Sodium 136 Potassium 3.5 Chloride 97 L Carbon Dioxide 30 Anion Gap 9 BUN 23 H D Creatinine 6.6 H Creat Clearance w eGFR 7.38 POC Glucometer 157 Random Glucose 149 H D Calcium 9.1 Phosphorus 3.3 Total Bilirubin 0.2 AST 15 ALT 12 Alkaline Phosphatase 110 Total Protein 5.4 L Albumin 1.7 L Active Medications Generic Name Dose Route Start Last Admin Trade Name Freq PRN Reason Stop Dose Admin Acetaminophen 650 mg 07/25/16 23:23 Tylenol - PO Q6H PRN FEVER Amlodipine Besylate 10 mg 07/26/16 10:00 08/04/16 12:02 Norvasc - PO 10 mg DAILY [facility] Administration Atenolol 50 mg 07/26/16 10:00 08/04/16 12:02 Tenormin - PO 50 mg DAILY [facility] Administration Atorvastatin Calcium 20 mg 07/26/16 22:00 08/03/16 21:58 Lipitor - PO 20 mg HS [facility] Administration Calcitriol 0.25 mcg 07/26/16 22:00 08/04/16 12:03 Rocaltrol - PO Not Given BID [facility] Calcium Acetate 1,334 mg 07/26/16 17:30 08/04/16 12:01 Phoslo - PO 1,334 mg TIDCM [facility] Administration Calcium Carbonate/Cholecalciferol 2 tab 07/27/16 10:00 08/04/16 12:01 Os-Kaz 500+D - PO 2 tab DAILY [facility] Administration Collagenase 1 applic 07/31/16 10:00 08/03/16 09:04 Santyl - TP 1 applic DAILY [facility] Administration Diphenhydramine HCl 25 mg 08/03/16 21:40 08/03/16 21:58 Benadryl - PO 25 mg Q8H PRN Administration FOR ITCHING Ferrous Sulfate 325 mg 07/26/16 10:00 08/04/16 12:02 Feosol - PO 325 mg DAILY [facility] Administration Hydralazine HCl 25 mg 08/03/16 22:00 08/04/16 06:12 Apresoline - PO Not Given TID [facility] Insulin Aspart 1 vial 07/26/16 07:00 08/04/16 12:02 Novolog Vial Sliding Scale - SQ 2 units ACHS [facility] Administration Protocol Insulin Detemir 5 units 08/01/16 22:00 08/03/16 22:01 Levemir Vial SQ 5 units HS [facility] Administration Morphine Sulfate 2 mg 08/01/16 20:17 08/04/16 12:15 Morphine Injection - IVPUSH 2 mg Q4H PRN Administration PAIN Pantoprazole Sodium 40 mg 07/31/16 10:00 08/04/16 12:02 Protonix - PO 40 mg DAILY [facility] Administration Polyethylene Glycol 17 gm 07/26/16 17:00 Miralax (For Daily Use) - PO PRN PRN Tamsulosin HCl 0.4 mg 07/26/16 22:00 08/03/16 21:58 Flomax - PO 0.4 mg HS [facility] Administration ASSESSMENT/PLAN: Patient is a 31 year old female with a significant past medical history of diabetes mellitus, 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 She presented to the ED on 07/25/2016 chills, nausea, vomiting and sent from [facility] dialysis for vomiting and fever. ID: Sepsis/Fever of unknown origin - left foot diabetic ulceration vs. dialysis catheter - resolved Assessment/Plan: Blood cultures with no growth to date, urine cultures negative WBC within normal limits, normal lactic acid levels, remains afebrile Chest xray with no evidence of acute pathology Completed full course of IV Zosyn To be seen by orthopedist tomorrow, patient has standing appointment every Thursday GI: Nausea, vomiting - resolved Assessment/Plan: Likely gastritis secondary to vomiting episodes no longer having any nausea/vomiting Renal: Chronic Kidney Disease - chronic Assessment/Plan: on MWF schedule through dialysis catheter, awaiting AV fistula Dialysis today Endocrine: Assessment/Plan: On a sliding scale monitor BGMs. Hematology: Anemia - stable Assessment/Plan: low h/h stable On Ferrous Sulfate 325mg daily transfuse if hmg <7 Cardiology: Hypertension - chronic Assessment/Plan: BP controlled on Atenolol 50mg qd and Norvasc 10md qd Hyperlipidemia: Assessment/Plan: On Lipitor 20mg @ hs Muscular/Skeletal: Osteomyelitis/diabetic ulcers/charcoat left foot Assessment/Plan: Stable, outpatient follow up F.E.N. Fluids: tolerating PO Electrolytes: monitor Nutrition: Renal diet Prophylaxis: GI: Protonix DVT: Heparin Dispo: Full code. Requires inpatient hospitalization. Visit type - Emergency Visit Emergency Visit: Yes ED Registration Date: 07/25/16 Care time: The patient presented to the Emergency Department on the above date and was hospitalized for further evaluation of their emergent condition. - New Patient This patient is new to me today: No - Critical Care Critical Care patient: No - Discharge Referral Referred to [facility] No
[2016-08-04] MEDS: COLLAGENASE CLOSTRIDIUM HIST. 30 GRAMS TUBE TP SCH (16:04)
[2016-08-04] MEDS: INSULIN DETEMIR 100 UNITS/ML MDV SQ SCH (22:11)
[2016-08-04] MEDS: TAMSULOSIN HCL 0.4 MG CAP.ER.24H (FP) PO SCH (22:12)
[2016-08-04] MEDS: ATORVASTATIN CA 20 MG TABLET (FP) PO SCH (22:12)
[2016-08-04] MEDS: ACETAMINOPHEN 325 MG TABLET (FP) PO PRN (22:21)
[2016-08-04] MEDS: diphenhydrAMINE HCL 25 MG CAPSULE (FP) PO PRN (22:23)
[2016-08-05 00:30] VITALS: PULSE 78
[2016-08-05] MEDS: hydrALAZINE HCL 25 MG TABLET (FP) PO SCH (06:38)
[2016-08-05] MEDS: INSULIN SLIDING SCALE (NOVOLOG) 1 VIAL SQ SCH (06:39)
[2016-08-05 07:59] LABS: MCHC 32.4 g/dl (32.0-36.0); MEAN CELL VOLUME 95.8 fl (80-96); MEAN PLT VOLUME 8.6 fl (7.5-11.1); NEUTROPHILS 54.6 % (42.8-82.8); PLATELET COUNT 268 K/MM3 (134-434); RDW 16.8 % (11.6-15.6)
[2016-08-05 08:36] LABS: ALBUMIN 1.8 g/dl (3.4-5.0); ALK PHOS 110 U/L (45-117); ANION GAP 8 (8-16); BILIRUBIN,TOTAL 0.3 mg/dL (0.2-1.0); CALCIUM 8.8 mg/dL (8.5-10.1); CO2 32 mmol/L (21-32); CREATININE 5.6 mg/dL (0.55-1.02); GLUCOSE,RANDOM 156 mg/dL (74-106); SGOT/AST 17 U/L (15-37); SGPT/ALT 12 U/L (12-78); TOT PROT 5.7 g/dl (6.4-8.2)
[2016-08-05] MEDS: CALCIUM ACETATE 667 MG CAPSULE (FP) PO SCH (08:36)
--- NOTE | 2016-08-05 08:50 | DS ---
Physical Exam: SUBJECTIVE: Patient seen and examined. States she feels well. Offers no complaints. OBJECTIVE: Spoke with Dr. Crews office yesterday and confirmed that patient has an appointment today at 11:[address] Crews to evaluate left foot and decide on whether or not to replace the cast. Vital Signs Period Temp Pulse Resp BP Sys/Guardado Pulse Ox Last 24 Hr 98.8 F-99 F 70-80 18-20 149-180/68-100 98-98 PHYSICAL EXAM GENERAL: The patient is awake, alert, and fully oriented, in no acute distress. HEAD: Normal with no signs of trauma. EYES: PERRL, extraocular movements intact, sclera anicteric, conjunctiva clear. No ptosis. ENT: Ears normal, nares patent, oropharynx clear without exudates, moist mucous membranes. NECK: Trachea midline, full range of motion, supple. LUNGS: Breath sounds equal, clear to auscultation bilaterally, no wheezes, no crackles, no accessory muscle use. HEART: Regular rate and rhythm, S1, S2 without murmur, rub or gallop. ABDOMEN: Soft, nontender, nondistended, normoactive bowel sounds, no guarding, no rebound, no hepatosplenomegaly, no masses. EXTREMITIES: left foot sterile dresssing, has diabetic foot ulcer, cast removed last Thursday NEUROLOGICAL: Normal speech PSYCH: Normal mood, normal affect. LABS Laboratory Results - last 24 hr 08/04/16 08/04/16 08/04/16 07:00 07:00 11:51 WBC 5.2 RBC 2.79 L Hgb 8.6 L Hct 26.6 L MCV 95.3 MCHC 32.4 RDW 16.7 H Plt Count 273 MPV 8.4 Neutrophils % 51.0 Lymphocytes % 35.7 D Monocytes % 4.6 Eosinophils % 8.0 H Basophils % 0.7 D Sodium 136 Potassium 3.5 Chloride 97 L Carbon Dioxide 30 Anion Gap 9 BUN 23 H D Creatinine 6.6 H Creat Clearance w eGFR 7.38 POC Glucometer 157 Random Glucose 149 H D Calcium 9.1 Phosphorus 3.3 Total Bilirubin 0.2 AST 15 ALT 12 Alkaline Phosphatase 110 Total Protein 5.4 L Albumin 1.7 L 08/04/16 08/04/16 08/05/16 17:56 22:07 06:30 WBC 6.0 RBC 2.99 L Hgb 9.3 L Hct 28.6 L MCV 95.8 MCHC 32.4 RDW 16.8 H Plt Count 268 MPV 8.6 Neutrophils % 54.6 Lymphocytes % 29.7 Monocytes % 7.7 Eosinophils % 7.0 H Basophils % 1.0 Sodium Potassium Chloride Carbon Dioxide Anion Gap BUN Creatinine Creat Clearance w eGFR POC Glucometer 244 249 Random Glucose Calcium Phosphorus Total Bilirubin AST ALT Alkaline Phosphatase Total Protein Albumin 08/05/16 06:31 WBC RBC Hgb Hct MCV MCHC RDW Plt Count MPV Neutrophils % Lymphocytes % Monocytes % Eosinophils % Basophils % Sodium Potassium Chloride Carbon Dioxide Anion Gap BUN Creatinine Creat Clearance w eGFR POC Glucometer 163 Random Glucose Calcium Phosphorus Total Bilirubin AST ALT Alkaline Phosphatase Total Protein Albumin HOSPITAL COURSE: Date of Admission:07/25/16 Date of Discharge: 08/05/16 ASSESSMENT/PLAN: Patient is a 31 year old female with a significant past medical history of diabetes mellitus, 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 She presented to the ED on 07/25/2016 chills, nausea, vomiting and sent from [facility] dialysis for vomiting and fever. ID: Sepsis/Fever of unknown origin - left foot diabetic ulceration vs. dialysis catheter - resolved Assessment/Plan: Blood cultures with no growth to date, urine cultures negative WBC within normal limits, normal lactic acid levels, remains afebrile Chest xray with no evidence of acute pathology Completed full course of IV Zosyn To be seen by orthopedist today, patient has standing appointment every Thursday GI: Nausea, vomiting - resolved Assessment/Plan: Likely gastritis secondary to vomiting episodes no longer having any nausea/vomiting Renal: Chronic Kidney Disease - chronic Assessment/Plan: on MWF schedule through dialysis catheter, awaiting AV fistula Dialysis tomorrow at the [facility] Endocrine: Assessment/Plan: DM - chronic On a sliding scale Hematology: Anemia - stable Assessment/Plan: low h/h stable On Ferrous Sulfate 325mg daily transfuse if hmg <7 Cardiology: Hypertension - chronic Assessment/Plan: BP controlled on Atenolol 50mg qd and Norvasc 10md qd Hyperlipidemia: Assessment/Plan: On Lipitor 20mg @ hs Muscular/Skeletal: Osteomyelitis/diabetic ulcers/charcoat left foot Assessment/Plan: Stable, outpatient follow up Dispo: Full code. Requires inpatient hospitalization. Minutes to complete discharge: 60 Discharge Summary Reason For Visit: DIABETIC FOOT INFECTION, FEVER, CKD, ESRD Current Active Problems Diabetic foot infection (Acute) ESRD (end stage renal disease) (Acute) HTN (hypertension) (Chronic) Insulin dependent diabetes mellitus (Chronic) Condition: Improved - Instructions Diet, Activity, Other Instructions: Please return to the ED with new, persistent, or worsening symptoms. Please follow-up with your pcp within 1 week. Please follow-up with Dr. Crews as scheduled on 08/05/16. Continue using your Cam Walker at home to ambulate until you are seen by Dr. Crews. Continue using Santyl with daily dressing changes with gauze. Referrals: Rolando Em MD [Staff Physician] - (Please follow-up with Dr. Em in the wound care clinic within 1 week. ) Ruby Cruz [Primary Care Provider] - 1 Week Disposition: VNS/HOME HEALTH CARE - Home Medications Comprehensive Discharge Medication List: Ambulatory Orders Atorvastatin Ca [Lipitor] 20 mg PO HS tablet 12/14/14 Amlodipine Besylate 10 mg PO DAILY 04/05/15 Ferrous Sulfate [Feosol] 325 mg PO DAILY 04/05/15 Magnesium Oxide 400 mg PO DAILY 04/05/15 Omeprazole [Prilosec] 20 mg PO DAILY 04/05/15 Polyethylene Glycol 3350 [Gavilax] 17 gm PO PRN 04/05/15 Tamsulosin HCl 0.4 mg PO HS 04/05/15 Acetaminophen [Tylenol .Regular Strength -] 650 mg PO Q6H PRN #0 tablet Insulin Sliding Scale [Novolog Vial Sliding Scale -] See Protocol SQ AC #1 pen 12/13/15 Calcitriol [Calcitriol -] 0.25 mcg PO BID #60 capsule 04/15/16 Calcium 500Mg/Vit-D 200 Units [Os-Kaz 500+D -] 2 tab PO DAILY #60 tab 04/15/16 Calcium Acetate [Phoslo -] 1,334 mg PO TIDCM #90 capsule 04/15/16 Collagenase Clostridium Hist. [Santyl -] 1 applic TP DAILY #1 tube 04/15/16 Insulin (Levemir) [Levemir Vial] 5 units SQ HS ml 04/15/16 Atenolol [Tenormin -] 50 mg PO DAILY #0 tablet 08/01/16 Hydralazine HCl [Apresoline -] 10 mg PO QID #120 tablet 08/01/16 This patient is new to me today: Yes Date on this admission: 08/05/16 Emergency Visit: Yes ED Registration Date: 07/25/16 Care time: The patient presented to the Emergency Department on the above date and was hospitalized for further evaluation of their emergent condition. Critical Care patient: No - Discharge Referral Referred to [facility] Med P.C.: No
[2016-08-05] MEDS: CALCIUM 500MG/VIT-D 200 UNITS COMBO TABLET (FP) PO SCH (09:22)
[2016-08-05] MEDS: FERROUS SO4 325 MG TABLET (FP) PO SCH (09:22)
[2016-08-05] MEDS: COLLAGENASE CLOSTRIDIUM HIST. 30 GRAMS TUBE TP SCH (09:22)
[2016-08-05] MEDS: ATENOLOL 50 MG TABLET (FP) PO SCH (09:22)
[2016-08-05] MEDS: PANTOPRAZOLE 40 MG TABLET (FP) PO SCH (09:22)
[2016-08-05] MEDS: amLODIPine BESYLATE 10 MG TABLET (FP) PO SCH (09:22)
[2016-08-05] MEDS: ACETAMINOPHEN 325 MG TABLET (FP) PO PRN (09:22)
[2016-08-05] MEDS: CALCITRIOL 0.25 MCG CAPSULE (FP) PO SCH (09:22)
[2016-08-05 11:13] VITALS: BP 157/78; TEMP 98.9
== END 2016-08-05 10:29 | disposition home health service (06) | DRG 720 ==
LOC: JER 15:39 → JERBED 22:47 → J8W 07-27 02:49
PROVIDERS: ADMIT Internal Medicine; ATTEND Nurse Practitioner Family
PROC: 0JBR0ZZ Excision of Left Foot Subcutaneous Tissue and Fascia, Open Approach (ICD-10-PCS; 2016-07-30)
PROC: 2W5 Placement, Anatomical Regions, Removal (ICD-10-PCS; 2016-07-30)
PROC: 5A1D60Z (ICD-10-PCS; principal; 2016-08-03)
DX: A41.9 Sepsis, unspecified organism (principal); E11.9 Type 2 diabetes mellitus without complications; E11.610 Type 2 diabetes mellitus with diabetic neuropathic arthropathy; E11.319 Type 2 diabetes mellitus with unspecified diabetic retinopathy without macular edema; E11.42 Type 2 diabetes mellitus with diabetic polyneuropathy; E11.69 Type 2 diabetes mellitus with other specified complication; E11.621 Type 2 diabetes mellitus with foot ulcer; L97.529 Non-pressure chronic ulcer of other part of left foot with unspecified severity; J44.9 Chronic obstructive pulmonary disease, unspecified; M86.9 Osteomyelitis, unspecified; I12.0 Hypertensive chronic kidney disease with stage 5 chronic kidney disease or end stage renal disease; E11.22 Type 2 diabetes mellitus with diabetic chronic kidney disease; N18.6 End stage renal disease; E88.09 Other disorders of plasma-protein metabolism, not elsewhere classified; E78.00 Pure hypercholesterolemia, unspecified; F12.20 Cannabis dependence, uncomplicated; E87.1 Hypo-osmolality and hyponatremia; F17.210 Nicotine dependence, cigarettes, uncomplicated; L08.9 Local infection of the skin and subcutaneous tissue, unspecified; K21.9 Gastro-esophageal reflux disease without esophagitis; D63.8 Anemia in other chronic diseases classified elsewhere; Z99.2 Dependence on renal dialysis; Z91.19 Patient's noncompliance with other medical treatment and regimen; K29.60 Other gastritis without bleeding
CPT/HCPCS: 36415; 71010-TC; 73630-TC-LT; 80053; 81003; 81015; 82550; 82553; 83605; 83690; 83735; 84100; 84484; 85025; 85027; 85610; 85730; 86704; 86706; 86708; 86803; 86850; 86870; 86880; 86900; 86901; 86902; 87040; 87045; 87046; 87081; 87086; 87340; 93005; 93010; 99285-25; J0885; J1644